=== PATIENT | female | born 1995 | race Hispanic/Latino ===

== ENCOUNTER 2018-05-16 22:59 | Observation (INO) | payer OTHER ==
[2018-05-16] MEDS ORDERED: ONDANSETRON 4 MG/2 ML VIAL ONE (23:41)
[2018-05-16] MEDS ORDERED: FAMOTIDINE 20 MG/2 ML VIAL IV ONE (23:41)
[2018-05-16] MEDS ORDERED: DICYCLOMINE HCL 10 MG CAP ONE (23:41)
[2018-05-16] MEDS ORDERED: NA CHLORIDE 0.9% 1,000 ML ONE (23:41)
[2018-05-17 00:39] LABS: Absolute Lymphocytes (CBC) 1.2 K/uL (0.7-4.9); Absolute Monocytes 0.6 K/uL (0.1-1.3); Basophils % 0.3 % (0-1.3); Eosinophils % 1.3 % (0-4.4); Lymphocytes % 10.9 % (15.3-44.8); MCH 29.2 pg (27.0-35.0); MPV 9.7 fL (7.6-11.3); Monocytes % 5.3 % (3.3-12.3)
[2018-05-17 00:47] LABS: ALT/SGPT 13 U/L (12-78); AST/SGOT 11 U/L (15-37); Albumin 3.4 g/dL (3.4-5.0); Alkaline Phosphatase 77 U/L (45-117); BUN Blood Urea Nitrogen 12 mg/dL (7-18); Bicarbonate 24 mmol/L (21-32); Bilirubin Direct 0.1 mg/dL (0-0.2); Bilirubin Total 0.5 mg/dL (0.2-1.0); Glucose Level 107 mg/dL (74-106); Lipase 87 U/L (73-393); Potassium 3.6 mmol/L (3.5-5.1); Protein, Total 7.6 g/dL (6.4-8.2); Sodium Level 141 mmol/L (136-145)
[2018-05-17 01:10] LABS: Urine Specific Gravity >1.030 (1.005-1.030)
[2018-05-17 01:12] LABS: Urine Blood NEGATIVE (NEG); Urine Glucose NEGATIVE (NEG); Urine Protein TRACE (NEG); Urine Specific Gravity >1.030 (1.005-1.030); Urine pH 5.5 (5.0-7.0)
[2018-05-17] MEDS ORDERED: KETOROLAC 30 MG/ML INJ ONE ×2 (01:49→08:23)
--- NOTE | 2018-05-17 03:14 | EDPHYS ---
Physician Documentation [facility] Name: Sosa Norris Age: 23 yrs Sex: Female : 1995 Arrival Date: 05/16/2018 Time: 23:05 Bed 25 Private MD: ED Physician Cj Tanner HPI: 05/16 23:24 This 23 yrs old Female presents to ER via Unassigned with complaints of cp Abdominal Pain, Back Pain. 23:25 The patient presents with abdominal pain in the lower abdomen. cp 23:25 Onset: The symptoms/episode began/occurred suddenly, today. The symptoms radiate to low cp back area. Associated signs and symptoms: Pertinent positives: nausea, Pertinent negatives: blood in stools, constipation, diarrhea, dysuria, fever, vaginal discharge, vomiting. The symptoms are described as constant. Modifying factors: the symptoms are aggravated by pressure. Severity of pain: in the emergency department the pain is actually worse moderately. 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 - Social history:: Smoking status: unknown. - Ebola Screening: : No symptoms or risks identified at this time. ROS: 23:30 Constitutional: Negative for body aches, chills, fever, poor PO intake. cp 23:30 Eyes: Negative for injury, pain, redness, and discharge. cp 23:30 ENT: Negative for drainage from ear(s), ear pain, sore throat, difficulty swallowing, difficulty handling secretions. 23:30 Cardiovascular: Negative for chest pain, palpitations. 23:30 Respiratory: Negative for cough, shortness of breath, wheezing. 23:30 Abdomen/GI: Positive for abdominal pain, nausea, of the right lower quadrant and left lower quadrant, Negative for vomiting, diarrhea, constipation, black/tarry stool, rectal bleeding. 23:30 Back: Positive for radiated pain, of the low back area. 23:30 : Negative for urinary symptoms, flank pain, vaginal bleeding, vaginal discharge. 23:30 Skin: Negative for cellulitis, rash. 23:30 Neuro: Negative for altered mental status, headache, weakness. 23:30 All other systems are negative. Exam: 23:35 Constitutional: The patient appears in no acute distress, alert, awake, non-toxic, well cp developed, well nourished, uncomfortable. 23:35 Head/Face: Normocephalic, atraumatic. Eyes: Pupils equal round and reactive to light, cp extra-ocular motions intact. Lids and lashes normal. Conjunctiva and sclera are non-icteric and not injected. Cornea within normal limits. Periorbital areas with no swelling, redness, or edema. ENT: Nares patent. No nasal discharge, no septal abnormalities noted. Tympanic membranes are normal and external auditory canals are clear. Oropharynx with no redness, swelling, or masses, exudates, or evidence of obstruction, uvula midline. Mucous membranes moist. Chest/axilla: Normal chest wall appearance and motion. Nontender with no deformity. No lesions are appreciated. 23:35 Cardiovascular: Rate: normal, Rhythm: regular. 23:35 Respiratory: the patient does not display signs of respiratory distress, Respirations: normal, no use of accessory muscles, no retractions, no splinting, no tachypnea, labored breathing, is not present, Breath sounds: are clear throughout, no decreased breath sounds, no stridor, no wheezing. 23:35 Abdomen/GI: Inspection: obese Bowel sounds: active, all quadrants, Palpation: soft, in all quadrants, moderate abdominal tenderness, in the right lower quadrant and left lower quadrant, rebound tenderness, is not appreciated, voluntary guarding, is elicited in the right lower quadrant and left lower quadrant, involuntary guarding, is not appreciated. 23:35 Back: pain, of the low back area, CVA tenderness, is absent. 23:35 Skin: cellulitis, is not appreciated, no rash present. 23:35 Neuro: Orientation: to person, place \T\ time. Mentation: lucid, able to follow commands, Cerebellar function: is grossly normal, Motor: moves all fours, strength is normal, Sensation: no obvious gross deficits. Vital Signs: 23:30 BP 141 / 107; Pulse 81; Resp 18; Temp 98.2(O); Pulse Ox 98% on R/A; tl3 23:56 BP 108 / 93; Pulse 84; Resp 18; Pulse Ox 100% on R/A; tl3 09 01:00 BP 122 / 79; Pulse 58; Resp 18; Pulse Ox 98% on R/A; tl3 02:02 BP 132 / 80; Pulse 60; Resp 18; Pulse Ox 100% on R/A; mg2 03:35 BP 104 / 67; Pulse 68; Resp 16 S; Temp 98.5(O); Pulse Ox 98% on R/A; bb MDM: 05/16 23:09 Patient medically screened. cp 23:11 Patient medically screened. [facility] 05/17 03:00 Data reviewed: vital signs, nurses notes, lab test result(s), radiologic studies, CT cp scan, and as a result, I will admit patient. 03:10 Physician consultation: Jorge Luis Hickman MD was called at 03:10, was contacted at 03:10, regarding admission, to the medical/surgical unit. patient's condition. 05/16 23:25 Order name: Basic Metabolic Panel; Complete Time: 01:52 05/17 01:53 Interpretation: Normal except: GLUC 107; CA 8.1. 05/16 23:25 Order name: CBC with Diff; Complete Time: 01:52 05/17 01:53 Interpretation: Normal except: WBC 11.0; HCT 34.0; MCV 83.0; MCH 29.2; LINH% 82.2; LYM% cp 10.9; NEUT A 9.0. 05/16 23:25 Order name: Hepatic Function; Complete Time: 01:52 cp 05/16 23:25 Order name: Lipase; Complete Time: 01:52 05/16 23:31 Order name: Urine Dipstick--Ancillary (enter results); Complete Time: 01:52 ca 05/16 23:25 Order name: CT Abd/Pelvis - W/Contrast: may give oral contrast 05/16 23:32 Order name: Urine --Ancillary (enter results); Complete Time: 01:52 ms 05/16 23:25 Order name: IV Saline Lock; Complete Time: 23:56 cp 05/16 23:25 Order name: Labs collected and sent; Complete Time: 23:56 cp 05/16 23:25 Order name: Urine Test (obtain specimen); Complete Time: 23:56 cp 05/17 03:04 Order name: NPO; Complete Time: 03:27 cp Administered Medications: 05/16 23:55 Drug: Zofran 4 mg Route: IVP; Infused Over: 2 mins; Site: left antecubital; tl3 05/17 01:05 Follow up: Response: No adverse reaction 3 05/16 23:55 Drug: Pepcid 20 mg Route: IVP; Infused Over: 1 mins; Site: left antecubital; tl3 05/17 01:05 Follow up: Response: No adverse reaction 3 05/16 23:55 Drug: Bentyl 20 mg Route: PO; tl3 05/17 01:05 Follow up: Response: No adverse reaction 3 05/16 23:56 Drug: NS 0.9% 1000 ml Route: IV; Rate: 1 bolus; Site: left antecubital; Delivery: tl3 Primary tubing; 05/17 01:05 Follow up: IV Status: Completed infusion; IV Intake: 1000ml tl3 01:47 Drug: TORadol 30 mg Route: IVP; Site: left forearm; mg2 04:09 Follow up: Response: No adverse reaction bb 03:28 Drug: Zosyn 3.375 grams Route: IVPB; Infused Over: 60 mins; Site: left antecubital; bb 04:09 Follow up: IV Status: Infusion continued upon admission bb Disposition: 07:15 Co-signature as Attending Physician, Cj Tanner MD I agree with the assessment and erin plan of care. Disposition: 05/17/18 03:13 Hospitalization ordered by Jorge Luis Hickman for Observation. Preliminary diagnosis is Unspecified acute appendicitis. - Bed requested for Telemetry/MedSurg (observation). - Status is Observation. ms - Condition is Stable. - Problem is new. - Symptoms have improved. UTI on Admission? No Signatures: Dispatcher [employer] [facility] Hien Gomes, Cj Bella RN, MD MD cha Ballard, Brenda, RN RN bb Solis, Maria ms Page, Corey, PA PA cp Lowrey, Tammy, RN RN tl3 Hitesh Bedolla RN RN mg2 Corrections: (The following items were deleted from the chart) 00:53 05/16 23:26 Creatinine for Radiology+C.LAB.BRZ ordered. [facility] EDMA 05/17 01:53 01:52 Normal except: GLUC 107. cp cp 03:17 03:13 Hospitalization Ordered by Jorge Luis Hickman MD for Observation. Preliminary diagnosis mw is Unspecified acute appendicitis. Bed requested for Telemetry/MedSurg (observation). Status is Observation. Condition is Stable. Problem is new. Symptoms have improved. UTI on Admission? No. cp 05:18 03:17 05/17/2018 03:13 Hospitalization Ordered by Jorge Luis Hickman MD for Observation. ms Preliminary diagnosis is Unspecified acute appendicitis. Bed requested for Telemetry/MedSurg (observation). Status is Observation. Condition is Stable. Problem is new. Symptoms have improved. UTI on Admission? No. mw
--- NOTE | 2018-05-17 03:14 | ER ---
Nurse's Notes [facility] Name: Sosa Norris Age: 23 yrs Sex: Female : 1995 Arrival Date: 05/16/2018 Time: 23:05 Bed 25 Private MD: Diagnosis: Unspecified acute appendicitis Presentation: 05/16 23:26 Presenting complaint: Patient states: abdominal pain that is generalized and has now tl3 worked its way to her lower back, nauseated but no vomiting or diarrhea, Last normal BM this am. Transition of care: patient was not received from another setting of care. Onset of symptoms was May 16, 2018. Risk Assessment: Do you want to hurt yourself or someone else? Patient reports no desire to harm self or others. Initial Sepsis Screen: Does the patient meet any 2 criteria? No. Patient's initial sepsis screen is negative. Does the patient have a suspected source of infection? No. Patient's initial sepsis screen is negative. Care prior to arrival: None. 23:26 Method Of Arrival: Ambulatory tl3 23:26 Acuity: SEGUNDO 3 tl3 Triage Assessment: 23:30 General: Appears uncomfortable, well groomed, well developed, well nourished, Behavior tl3 is calm, cooperative, appropriate for age. Pain: Complains of pain in lumbar area, left low back, right low back and abdomen Pain currently is 8 out of 10 on a pain scale. EENT: No signs and/or symptoms were reported regarding the EENT system. Neuro: Level of Consciousness is awake, alert, obeys commands, Oriented to person, place, time, situation, Appropriate for age. Cardiovascular: Patient's skin is warm and dry. Respiratory: Airway is patent Respiratory effort is even, unlabored, Respiratory pattern is regular, symmetrical. GI: Abdomen is round Bowel sounds present X 4 quads. hypoactive in abdomen diffusely. : No signs and/or symptoms were reported regarding the genitourinary system. Urine is clear. Derm: No signs and/or symptoms reported regarding the dermatologic system. Musculoskeletal: No signs and/or symptoms reported regarding the musculoskeletal system. 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 - Social history:: Smoking status: unknown. - Ebola Screening: : No symptoms or risks identified at this time. Screenin:33 Abuse screen: Denies threats or abuse. Nutritional screening: No deficits noted. tl3 Tuberculosis screening: No symptoms or risk factors identified. Fall Risk None identified. Assessment: 23:33 Reassessment: No changes from previously documented assessment. GI: Abd is soft Abdomen tl3 is tender to palpation. 23:56 Reassessment: No changes from previously documented assessment. Patient and/or family tl3 updated on plan of care and expected duration. Pain level reassessed. Patient is alert, oriented x 3, equal unlabored respirations, skin warm/dry/pink. pt has no needs at this time. 05/17 01:00 Reassessment: Patient appears in no apparent distress at this time. No changes from tl3 previously documented assessment. Patient and/or family updated on plan of care and expected duration. Pain level reassessed. Patient is alert, oriented x 3, equal unlabored respirations, skin warm/dry/pink. awaiting CT. 02:03 Reassessment: Patient appears in no apparent distress at this time. Patient and/or mg2 family updated on plan of care and expected duration. Pain level reassessed. Patient is alert, oriented x 3, equal unlabored respirations, skin warm/dry/pink. patient sent to ct scan. 03:34 Reassessment: Patient and/or family updated on plan of care and expected duration. Pain bb level reassessed. Patient is alert, oriented x 3, equal unlabored respirations, skin warm/dry/pink. pt instructed on need for admit verbalized understanding of and agrees to plan of care. IV site intact, patent with fluids infusing, awaiting room assignment. Vital Signs: 05/16 23:30 BP 141 / 107; Pulse 81; Resp 18; Temp 98.2(O); Pulse Ox 98% on R/A; tl3 23:56 BP 108 / 93; Pulse 84; Resp 18; Pulse Ox 100% on R/A; tl3 05/17 01:00 BP 122 / 79; Pulse 58; Resp 18; Pulse Ox 98% on R/A; tl3 02:02 BP 132 / 80; Pulse 60; Resp 18; Pulse Ox 100% on R/A; mg2 03:35 BP 104 / 67; Pulse 68; Resp 16 S; Temp 98.5(O); Pulse Ox 98% on R/A; bb ED Course: 05/16 23:05 Patient arrived in ED. ag3 23:09 Cj Lemus PA is PHCP. cp 23:09 Cj Tanner MD is Attending Physician. cp 23:16 Briseida Morgan, RN is Primary Nurse. tl3 23:29 Triage completed. tl3 23:30 Arm band placed on right wrist. tl3 23:33 Patient has correct armband on for positive identification. Bed in low position. Call tl3 light in reach. Side rails up X 1. Pulse ox on. NIBP on. 23:33 Urine collected: clean catch specimen, clear. tl3 23:[address] Scan. tl3 23:56 No provider procedures requiring assistance completed. Initial lab(s) drawn, by nj, tl3 sent to lab. Inserted saline lock: 22 gauge in left antecubital area, using aseptic technique. Blood collected. 05/17 02:22 CT Abd/Pelvis - W/Contrast: may give oral contrast In Process Unspecified. EDMS 03:13 Jorge Luis Hickman MD is Hospitalizing Provider. cp 03:28 Patient admitted, IV remains in place. bb Administered Medications: 05/16 23:55 Drug: Zofran 4 mg Route: IVP; Infused Over: 2 mins; Site: left antecubital; tl3 05/17 01:05 Follow up: Response: No adverse reaction tl3 05/16 23:55 Drug: Pepcid 20 mg Route: IVP; Infused Over: 1 mins; Site: left antecubital; tl3 05/17 01:05 Follow up: Response: No adverse reaction tl3 05/16 23:55 Drug: Bentyl 20 mg Route: PO; tl3 05/17 01:05 Follow up: Response: No adverse reaction 3 05/16 23:56 Drug: NS 0.9% 1000 ml Route: IV; Rate: 1 bolus; Site: left antecubital; Delivery: tl3 Primary tubing; 05/17 01:05 Follow up: IV Status: Completed infusion; IV Intake: 1000ml tl3 01:47 Drug: TORadol 30 mg Route: IVP; Site: left forearm; mg2 04:09 Follow up: Response: No adverse reaction bb 03:28 Drug: Zosyn 3.375 grams Route: IVPB; Infused Over: 60 mins; Site: left antecubital; pasquale 04:09 Follow up: IV Status: Infusion continued upon admission bb Intake: 01:05 IV: 1000ml; Total: 1000ml. tl3 Outcome: 03:13 Decision to Hospitalize by Provider. cp 03:28 Admitted to Med/surg bb 03:28 Condition: stable 03:28 Instructed on the need for admit. 04:08 Admitted to Med/surg accompanied by tech, via wheelchair, room 410, with chart, Report bb called to Mirna BRITT 05:18 Patient left the ED. ms Signatures: Dispatcher [employer] EDMS Renuka Stahl RN RN Nguyen Hearn ms, Corey, Briseida Ignacio cp RN RN tl3 Hitesh Bedolla RN RN [facility] Laura Lima ag3
[2018-05-17] MEDS ORDERED: PIPER/TAZO/NS 3.375gm 3.375 GM/100 ML BAG ONE (03:26)
[2018-05-17] MEDS ORDERED: MORPHINE 2 MG/ML SYR IV PRN (05:15)
[2018-05-17] MEDS ORDERED: ONDANSETRON 4 MG/2 ML VIAL IV PRN (05:15)
[2018-05-17] MEDS ORDERED: ACETAMINOPHEN 500 MG TAB PO PRN (05:15)
[2018-05-17 05:17] VITALS: BMI 40.2
[2018-05-17] MEDS: NA CHLORIDE 0.9% 1,000 ML IV SCH ×3 (06:00→20:15)
[2018-05-17] MEDS ORDERED: MORPHINE 4 MG/ML SYR IV PRN (07:44)
[2018-05-17] MEDS ORDERED: FENTANYL CITR 100 MCG/2 ML ONE (07:47)
[2018-05-17] MEDS ORDERED: PROPOFOL 200 MG/20 ML VIAL IV ONE (07:47)
[2018-05-17] MEDS ORDERED: MIDAZOLAM HCL 2 MG/2 ML INJ ONE (07:47)
[2018-05-17] MEDS ORDERED: NEOSTIGMINE 1 MG/ML -5 ML SYRINGE ONE (07:48)
[2018-05-17] MEDS ORDERED: ROCURONIUM 50 MG/5 ML VIAL IV ONE (07:48)
[2018-05-17] MEDS ORDERED: LIDOCAINE 2% MPF 5 ML VIAL ONE (07:48)
[2018-05-17] MEDS ORDERED: GLYCOPYRROLATE 0.2 MG/ML SYR ONE (07:48)
[2018-05-17] MEDS ORDERED: ONDANSETRON HCL 40 MG/20 ML VIAL ONE (07:50)
[2018-05-17] MEDS ORDERED: INFLUENZA VACCINE (for 3y+) 0.5 ML DOSE IMVAC ONE (08:00)
[2018-05-17] MEDS ORDERED: PNEUMOCOCCAL VACCINE 0.5 ML IMVAC ONE (08:00)
[2018-05-17] MEDS ORDERED: DEXAMETHASONE 10 MG/ML VIAL ONE (08:23)
--- NOTE | 2018-05-17 08:46 | P.OP ---
Preoperative diagnosis: Acute Appendicitis Postoperative diagnosis: same Primary procedure: Lap Appy Anesthesia: Gen Estimated blood loss: min Specimen: Appy Findings: as above Complications: None Transferred to: Recovery Room Condition: Good
[2018-05-17] MEDS ORDERED: PIPER/TAZO/NS 3.375gm 3.375 GM/100 ML BAG IVPB SCH ×2 (09:30→12:00)
[2018-05-17] MEDS: MEPERIDINE HCL 50 MG/ML AMP ONE ×2 (09:35→09:45)
[2018-05-17] MEDS: HYDROMORPHONE HCL 1 MG/ML INJ IV PRN ×2 (10:22→18:33)
--- NOTE | 2018-05-17 12:00 | PREOPHP ---
Date of Admission: 05/17/2018 Reason: Abdominal pain. History Of Present Illness: The patient is a 23-year-old female who comes in with diffuse abdominal pain localized to the right lower quadrant associated with nausea and anorexia. No vomiting for appr oximately 18 hours. No diarrhea or constipation. No blood in her stool. No dysuria or hematuria. No sore throat, runny nose, cough, headaches, or dizziness. No chest pain. No fever or chills. Review of Systems: Otherwise unremarkable. Past Medical History: Negative. Past Surgical History: Tonsillectomy. Allergies: NO ALLERGIES. Social History: She does not smoke. Drinks occasionally. Family History: Noncontributory. Physical Examination: Vital Signs: Stable. Afebrile. General: Awake, alert, and oriented x3. Head and Neck: Cranial nerves 2 through 12 grossly within normal limits. No neck masses. No JVD. Throat clear. Neck is supple. Chest: Clear. Heart: S1, S2. Abdomen: Soft, nondistended. Positive bowel sounds. Positive Rovsing sign. Positive right lower q uadrant tenderness with rebound. No rigidity or guarding. Extremity: Adequately perfused. Nontender. Neuro: Nonfocal. Laboratory Data: White count is slightly elevated at 11.1. CT of the abdomen and pelvis reveals wilbert dence of acute uncomplicated appendicitis. Assessment: Acute appendicitis. Plan: Admit, n.p.o., IV fluid, IV antibiotic, to the OR for laparoscopic appendectomy, possible open . The patient and family understand the risks, benefits, and alternatives and agrees to the procedbonnie BILL/EDILBERTO Voice ID: [id number]
--- NOTE | 2018-05-17 12:43 | RAD REPORT ---
EXAM DESCRIPTION: CTAbdomen Pelvis W Contrast - 05/17/2018 7:05 am CLINICAL HISTORY: Abdominal pain. ABD PAIN COMPARISON: No comparisons TECHNIQUE: Biphasic CT imaging of the abdomen and pelvis was performed with 100 ml non-ionic IV cont rast. All CT scans are performed using dose optimization technique as appropriate and may include automated exposure control or mA/KV adjustment according to patient size. FINDINGS: The lung bases are clear. The liver, spleen, pancreas, adrenal glands and kidneys are within normal limits. No bowel obstruction, free air, free fluid or abscess. The appendix is dilated to 13 mm and inflamed compatible with acute appendicitis. No evidence of significant lymphadenopathy. No suspicious bony findings. IUD is in place. IMPRESSION: Acute appendicitis.
[2018-05-17] MEDS: PIPER/TAZO/NS 3.375gm 3.375 GM/100 ML BAG IVPB SCH ×2 (12:52→20:13)
[2018-05-17] MEDS: HYDROCODONE/APAP 7.5/325 MG TAB PO PRN ×2 (12:54→20:13)
--- NOTE | 2018-05-17 19:42 | OP ---
Date of Procedure: 05/17/2018 Surgeon: Jorge Luis Hickman MD Preoperative Diagnosis: Acute appendicitis. Postoperative Diagnosis: Acute appendicitis. Procedure: Laparoscopic appendectomy. Specimen: Appendix. Findings: As above. Anesthesia: General. Complications: None. Disposition: The patient tolerated the procedure in stable condition and taken to recovery in good g eneral condition. Procedure In Detail: The patient was brought to the OR and placed in supine position. General anest hesia was begun. The patient was prepped and draped in usual sterile fashion. Marcaine 0.5% was inf iltrated locally. A 15-blade was used to make a 1 cm supraumbilical midline incision. Subcutaneous tissue divided. The fascia was identified and divided. A #1 Vicryl stay suture was placed. Periton eal cavity was entered with sharp and blunt dissection. A 12-mm trocar was placed into the peritonea l cavity under direct vision. Pneumoperitoneum was established. A 5-mm trocar was placed in the sup rapubic and left lower quadrant region. Laparoscopy revealed inflammation at base of the appendix. Mesoappendix was clearly identified. Endo-GENESIS stapling device was used to divide both structures. M inimal oozing noted from the appendiceal artery, controlled easily with vascular clips. Appendix was retrieved through the umbilicus via an EndoCatch bag. Right lower quadrant was irrigated. Effluent was clear. No evidence of bleeding or bowel injury appreciated. No other evidence of disease ident ified, normal pelvic organs as well as the remainder of the abdominal contents that could be seen. S ubsequently, all trocars were removed under vision. Stay sutures were tied to each other to reapprox imate the fascial defect. Subcutaneous wounds were irrigated. Bleeding controlled with cautery. A 3 -0 chromic was used to approximate the subcutaneous tissue. [place] were used to close the skin. St erile dressing was applied. The patient was awakened and taken to recovery room in good general cond ition. /MODL Voice ID: [id number] Report ID: [id number]
[2018-05-18] MEDS: HYDROMORPHONE HCL 1 MG/ML INJ IV PRN (00:02)
[2018-05-18] MEDS: NA CHLORIDE 0.9% 1,000 ML IV SCH ×2 (03:52→14:00)
[2018-05-18] MEDS: PIPER/TAZO/NS 3.375gm 3.375 GM/100 ML BAG IVPB SCH ×2 (03:52→12:57)
[2018-05-18] MEDS: HYDROCODONE/APAP 7.5/325 MG TAB PO PRN ×3 (03:53→13:03)
[2018-05-18 05:46] LABS: Absolute Lymphocytes (CBC) 0.9 K/uL (0.7-4.9); Absolute Monocytes 0.6 K/uL (0.1-1.3); Absolute Neutrophil 8.2 K/uL (1.8-8.0); Eosinophils % 0.1 % (0-4.4); Hematocrit 31.3 % (36.0-45.0); Lymphocytes % 9.5 % (15.3-44.8); MCH 28.5 pg (27.0-35.0); MCV 84.5 fL (80-100); MPV 9.7 fL (7.6-11.3); Monocytes % 6.5 % (3.3-12.3)
[2018-05-18 05:58] LABS: BUN Blood Urea Nitrogen 7 mg/dL (7-18); Bicarbonate 24 mmol/L (21-32); Glucose Level 111 mg/dL (74-106); Potassium 4.3 mmol/L (3.5-5.1); Sodium Level 140 mmol/L (136-145)
[2018-05-18 12:10] VITALS: BP 119/66; TEMP 97.2
[2018-05-18 14:02] VITALS: O2SAT 100
[2018-05-18] MEDS ORDERED: INFLUENZA VACCINE (for 3y+) 0.5 ML DOSE IMVAC ONE (16:00)
--- NOTE | 2018-05-19 04:07 | DS ---
Date of Discharge: 05/18/2018 Admitting Diagnosis: Acute appendicitis. Discharge Diagnosis: Acute appendicitis. Procedure Performed: Laparoscopic appendectomy. Hospital Course: The patient is a 23-year-old female who underwent the aforementioned procedure. Po stoperatively, she is tolerating diet, ambulating, pain control, on p.o. pain medication, afebrile. Therefore, the patient will be discharged to home. Disposition: Home. Condition: Stable. Discharge Instructions: Resume home medications and diet. Activity as tolerated. No heavy lifting. Remove outer dressing in a.m. Shower. Keep wound clean and dry. Follow up in my office in 1 week . Call for appointment. Tylenol No. 3 one tablet p.o. q.4 p.r.n. pain. /EDILBERTO Voice ID: [id number] Report ID: [id number]
== END 2018-05-18 16:12 | disposition home or self-care (01) ==
LOC: ER 22:59 → ERHOLD 05-17 03:36 → 4TH 05-17 04:06
PROVIDERS: ADMIT Surgery; ATTEND Surgery
PROC: 0DTJ4ZZ Resection of Appendix, Percutaneous Endoscopic Approach (ICD-10-PCS; principal; 2018-05-17 08:00)
DX: K35.80 Unspecified acute appendicitis (principal); Z23 Encounter for immunization
CPT/HCPCS: 36415; 74177; 80048; 80076; 81003; 81025; 83690; 85025; 88304; 96361; 96365; 96375; 99285; G0008; G0378; J1100; J1170; J2175; J2250; J2405; J2543; J2710; J3010; J7030; Q2035; Q9967

== ENCOUNTER 2019-05-15 11:02 | Emergency (ER) | payer OTHER, SELFPAY ==
[2019-05-15] MEDS ORDERED: FLUORESCEIN SODIUM 1 MG/WRAP ONE (11:26)
[2019-05-15] MEDS ORDERED: NA CHLORIDE 0.9% 0 ML ONE (11:26)
[2019-05-15] MEDS ORDERED: TETRACAINE HCL 0.5% 4ML OPTH ONE (11:26)
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
[2019-05-15] MEDS ORDERED: TOBRAMYCIN SULF 0.3% OPTH OINT ONE (12:55)
[2019-05-15 13:15] VITALS: TEMP 98.4
[2019-05-15 13:18] VITALS: BP 145/86; O2SAT 97
== END 2019-05-15 12:59 | disposition home or self-care (01) ==
LOC: ER 11:02
DX: H10.9 Unspecified conjunctivitis (principal); Z77.29 Contact with and (suspected) exposure to other hazardous substances
CPT/HCPCS: 99283; J7030

== ENCOUNTER 2019-09-14 02:01 | Emergency (ER) | payer SELFPAY ==
[2019-09-14] MEDS ORDERED: ALBUTEROL 2.5 MG/3 ML NEB SOL ONE (02:23)
[2019-09-14] MEDS ORDERED: IPRATROPIUM BROM 0.5MG/2.5ML ONE (02:23)
[2019-09-14] MEDS ORDERED: BENZONATATE 100 MG CAP PO ONE (02:23)
--- NOTE | 2019-09-14 02:45 | ER ---
Nurse's Notes [facility] Name: Sosa Norris Age: 24 yrs Sex: Female : 1995 Arrival Date: 09/14/2019 Time: 02:02 Bed 16 Private MD: Diagnosis: Acute bronchitis;Acute pharyngitis Presentation: 09/14 02:08 Presenting complaint: Patient states: sore throat since yesterday with low grade fever. aa1 Transition of care: patient was not received from another setting of care. Onset of symptoms was September 13, 2019. Risk Assessment: Do you want to hurt yourself or someone else? Patient reports no desire to harm self or others. Initial Sepsis Screen: Does the patient meet any 2 criteria? No. Patient's initial sepsis screen is negative. Does the patient have a suspected source of infection? No. Patient's initial sepsis screen is negative. Care prior to arrival: None. 02:08 Method Of Arrival: Ambulatory aa1 02:08 Acuity: SEGUNDO 4 aa1 Triage Assessment: 02:10 General: Appears in no apparent distress. comfortable, Behavior is calm, cooperative, aa1 appropriate for age. 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 - Coronavirus screen:: The patient has NOT traveled to [place], [place], or [place] in the past 14 days. Proceed with normal triage process as indicated. - Social history:: Smoking status: Patient reports the use of cigarette tobacco products, denies chronic smoking, but will smoke occasionally. - Ebola Screening: : Patient denies exposure to infectious person Patient denies travel to an Ebola-affected area in the 21 days before illness onset. Screenin:20 Abuse screen: Denies threats or abuse. Denies injuries from another. Nutritional wh screening: No deficits noted. Tuberculosis screening: No symptoms or risk factors identified. Fall Risk None identified. Assessment: 02:20 General: Appears in no apparent distress. Behavior is calm, cooperative, appropriate wh for age. Pain: Complains of pain in sore throat. Neuro: Level of Consciousness is awake, alert, obeys commands, Oriented to person, place, time, situation, Appropriate for age. Cardiovascular: Heart tones S1 S2. Respiratory: Airway is patent Respiratory effort is even, unlabored, Respiratory pattern is regular, symmetrical, Breath sounds are clear bilaterally. GI: Abdomen is flat, non-distended. : No signs and/or symptoms were reported regarding the genitourinary system. EENT: Throat is pink. Derm: Skin is intact, is healthy with good turgor, Skin is pink, warm \T\ dry. normal. Musculoskeletal: Circulation, motion, and sensation intact. Vital Signs: 02:10 BP 113 / 68; Pulse 86; Resp 16; Temp 97.4; Pulse Ox 99% on R/A; Weight 90.72 kg; Height aa1 5 ft. 0 in. (152.40 cm); Pain 8/10; 03:04 BP 117 / 71; Pulse 79; Resp 18; Pulse Ox 99% on R/A; wh 02:10 Body Mass Index 39.06 (90.72 kg, 152.40 cm) aa1 ED Course: 02:02 Patient arrived in ED. cl3 02:05 Rashard [facility]ro [facility]-C [facility] la1 02:05 Cam Lu MD is Attending Physician. la1 02:09 Triage completed. aa1 02:10 Arm band placed on left wrist. aa1 02:17 Josesito Wells is Primary Nurse. wh 02:20 Patient has correct armband on for positive identification. Bed in low position. Call light in reach. Side rails up X 1. Pulse ox on. NIBP on. 03:04 No provider procedures requiring assistance completed. Patient did not have IV access during this emergency room visit. Administered Medications: 02:23 Drug: AtroVENT Aerosol 0.5 mg Route: Inhalation; 03:05 Follow up: Response: No adverse reaction 02:24 Drug: Tessalon Perle 100 mg Route: PO; wh 03:05 Follow up: Response: No adverse reaction 02:24 Drug: Albuterol 2.5 mg Route: Inhalation; 03:05 Follow up: Response: No adverse reaction 02:53 Drug: Tylenol 1000 mg Route: PO; wh 03:05 Follow up: Response: No adverse reaction 02:54 Drug: Motrin 600 mg Route: PO; 03:05 Follow up: Response: No adverse reaction Outcome: 02:44 Discharge ordered by MD. ruffin 03:01 Discharged to home ambulatory. 03:01 Condition: stable 03:01 Discharge instructions given to patient, Instructed on discharge instructions, follow up and referral plans. medication usage, POC Demonstrated understanding of instructions, follow-up care, medications, POC Prescriptions given X 3. 03:05 Patient left the ED. Signatures: Rayne Royal RN RN aa1 Rashard Oro, SENIOR INTERACTIVE PRODUCER-C SENIOR INTERACTIVE PRODUCER-Cla1 Josesito Wells Sebastián Guaman cl3
--- NOTE | 2019-09-14 02:45 | EDPHYS ---
Physician Documentation [facility] Name: Sosa Norris Age: 24 yrs Sex: Female : 1995 Arrival Date: 09/14/2019 Time: 02:02 Bed 16 Private MD: ED Physician Cam Lu HPI: 09/14 02:13 This 24 yrs old Female presents to ER via Ambulatory with complaints of Sore la1 Throat. 02:13 The patient presents with sore throat. The patient describes throat pain as scratchy. la1 Onset: The symptoms/episode began/occurred today. Severity of symptoms: At their worst the symptoms were mild, in the emergency department the symptoms have improved. Modifying factors: The symptoms are alleviated by nothing, the symptoms are aggravated by swallowing, cough, Patient's oral intake status: good Denies contact with similarly ill indivduals. Associated signs and symptoms: Pertinent positives: cough, Pertinent negatives chest pain, chills, earache, headache, nausea, rhinorrhea, shortness of breath. The patient has not experienced similar symptoms in the past. pt reports cough and sore throat that started today. 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 - Coronavirus screen:: The patient has NOT traveled to [place], [place], or [place] in the past 14 days. Proceed with normal triage process as indicated. - Social history:: Smoking status: Patient reports the use of cigarette tobacco products, denies chronic smoking, but will smoke occasionally. - Ebola Screening: : Patient denies exposure to infectious person Patient denies travel to an Ebola-affected area in the 21 days before illness onset. ROS: 02:13 Constitutional: Negative for fever, chills, and weight loss, Eyes: Negative for injury, la1 pain, redness, and discharge, ENT: + for sore throat Neck: Negative for injury, pain, and swelling, Cardiovascular: Negative for chest pain, palpitations, and edema, Respiratory: + for cough' Abdomen/GI: Negative for abdominal pain, nausea, vomiting, diarrhea, and constipation, Back: Negative for injury and pain, : Negative for injury, bleeding, discharge, and swelling, MS/Extremity: Negative for injury and deformity, Neuro: Negative for headache, weakness, numbness, tingling, and seizure, Endocrine: Negative for neck swelling, polydipsia, polyuria, polyphagia, and marked weight changes. Exam: 02:14 Constitutional: This is a well developed, well nourished patient who is awake, alert, la1 and in no acute distress. Head/Face: Normocephalic, atraumatic. Eyes: Pupils equal round and reactive to light, extra-ocular motions intact. Lids and lashes normal. Conjunctiva and sclera are non-icteric and not injected. Cornea within normal limits. Periorbital areas with no swelling, redness, or edema. ENT: Nares patent. No nasal discharge, no septal abnormalities noted. Tympanic membranes are normal and external auditory canals are clear. Oropharynx with no redness, swelling, or masses, exudates, or evidence of obstruction, uvula midline. Mucous membranes moist. Neck: Trachea midline no cervical lymphadenopathy. Supple, full range of motion without nuchal rigidity, or vertebral point tenderness. No Meningismus. Chest/axilla: Normal chest wall appearance and motion. Nontender with no deformity. No lesions are appreciated. Cardiovascular: Regular rate and rhythm with a normal S1 and S2. No gallops, murmurs, or rubs. Normal PMI, no JVD. No pulse deficits. 02:14 Respiratory: the patient does not display signs of respiratory distress, Respirations: normal, Breath sounds: rhonchi, that are mild, are heard diffusely, Respiratory rate: 16 Vital Signs: 02:10 BP 113 / 68; Pulse 86; Resp 16; Temp 97.4; Pulse Ox 99% on R/A; Weight 90.72 kg; Height aa1 5 ft. 0 in. (152.40 cm); Pain 8/10; 03:04 BP 117 / 71; Pulse 79; Resp 18; Pulse Ox 99% on R/A; wh 02:10 Body Mass Index 39.06 (90.72 kg, 152.40 cm) aa1 MDM: 02:05 Patient medically screened. la1 02:44 Data reviewed: vital signs, nurses notes, lab test result(s), and as a result, I will la1 discharge patient. Data interpreted: Pulse oximetry: on room air is 99 %. Interpretation: normal. Counseling: I had a detailed discussion with the patient and/or guardian regarding: the historical points, exam findings, and any diagnostic results supporting the discharge/admit diagnosis, lab results, to return to the emergency department if symptoms worsen or persist or if there are any questions or concerns that arise at home. Medication response: albuterol nebulizer treatment(s) markedly relieved the patient's wheezing. Special discussion: I discussed with the patient/guardian that the patient's current presentation does not indicate dosing of antibiotics. They should follow-up with their primary care provider and return if the symptoms persist or progress. 09/14 02:10 Order name: Strep la1 09/14 02:10 Order name: Flu la1 09/14 02:46 Order name: Throat Culture EDMS Administered Medications: 02:23 Drug: AtroVENT Aerosol 0.5 mg Route: Inhalation; 03:05 Follow up: Response: No adverse reaction 02:24 Drug: Tessalon Perle 100 mg Route: PO; 03:05 Follow up: Response: No adverse reaction 02:24 Drug: Albuterol 2.5 mg Route: Inhalation; 03:05 Follow up: Response: No adverse reaction 02:53 Drug: Tylenol 1000 mg Route: PO; 03:05 Follow up: Response: No adverse reaction 02:54 Drug: Motrin 600 mg Route: PO; 03:05 Follow up: Response: No adverse reaction Disposition: 06:50 Co-signature as Attending Physician, Cam Lu MD I agree with the assessment and [facility] plan of care. Disposition: 09/14/19 02:44 Discharged to Home. Impression: Acute bronchitis, Acute pharyngitis. - Condition is Stable. - Discharge Instructions: Acute Bronchitis, Adult, Pharyngitis, Cough, Adult. - Prescriptions for Tessalon Perles 100 mg Oral Capsule - take 1 capsule by ORAL route every 8 hours As needed; 15 capsule. Medrol (Aristides) 4 mg Oral Tablets, Dose Pack - take 1 tablet by ORAL route as directed - follow package instructions; 1 packet. Albuterol Sulfate 90 mcg/actuation - inhale 1-2 puff by INHALATION route every 4-6 hours; 1 Inhaler. - Medication Reconciliation Form, Thank You Letter, Antibiotic Education, Prescription Opioid Use form. - Follow up: Private Physician; When: 2 - 3 days; Reason: Recheck today's complaints, Re-evaluation by your physician. Follow up: Emergency Department; When: As needed; Reason: Worsening of condition. - Problem is new. - Symptoms have improved. Signatures: Dispatcher [employer] EDRayne Starr RN RN aa1 Rashard Oro, MARKET RESEARCH CONSULTANT-C MARKET RESEARCH CONSULTANT-Cla1 Josesito Wells Terrence, MD MD tw4 Corrections: (The following items were deleted from the chart) 03:05 02:44 09/14/2019 02:44 Discharged to Home. Impression: Acute bronchitis; Acute wh pharyngitis. Condition is Stable. Discharge Instructions: Acute Bronchitis, Adult, Pharyngitis, Cough, Adult. Prescriptions for Tessalon Perles 100 mg Oral Capsule - take 1 capsule by ORAL route every 8 hours As needed; 15 capsule, Medrol (Aristides) 4 mg Oral Tablets, Dose Pack - take 1 tablet by ORAL route as directed - follow package instructions; 1 packet, Albuterol Sulfate 90 mcg/actuation - inhale 1-2 puff by INHALATION route every 4-6 hours; 1 Inhaler. and Forms are Medication Reconciliation Form, Thank You Letter, Antibiotic Education, Prescription Opioid Use. Follow up: Private Physician; When: 2 - 3 days; Reason: Recheck today's complaints, Re-evaluation by your physician. Follow up: Emergency Department; When: As needed; Reason: Worsening of condition. Problem is new. Symptoms have improved. la1
[2019-09-14] MEDS ORDERED: IBUPROFEN 400 MG TAB ONE (02:57)
[2019-09-14] MEDS ORDERED: ACETAMINOPHEN 500 MG TAB ONE (02:57)
[2019-09-14] MEDS ORDERED: IBUPROFEN 200 MG TAB PO ONE (02:57)
[2019-09-14 03:10] VITALS: TEMP 97.4; O2SAT 99
[2019-09-14 03:11] VITALS: BP 117/71
== END 2019-09-14 03:05 | disposition home or self-care (01) ==
LOC: ER 02:01
DX: J20.9 Acute bronchitis, unspecified (principal)
CPT/HCPCS: 87070; 87081; 87804; 99284

== ENCOUNTER 2020-11-24 05:03 | Emergency (ER) | payer OTHER, MEDICAID ==
--- OUTSIDE RECORDS SUMMARY | 2020-11-24 05:06 | XMS REPORT | Continuity of Care Document ---
:1995 Author Organization [facility] t Address [address] [place] [address] Care Team Providers Name Role Phone Asked, Pcp Primary Care Physician Unavailable Zeferino CASTRO, Yash Attending Clinician 2, Lab Attending Clinician Unavailable Hakan Paredes MD Attending Clinician Payers Payer Name Policy Type Policy Number Effective Date Expiration Date S mimi [facility] [id number] 2017 [place] BENEFIT 00:00:00 [employer] [id number] -Pre sentPPO CIGNACIGNA/ALL [id number] 2020 [place] EGIANCE 00:00:00 [employer] BENEFIT [id number] -Pre sentPPO Problems Condition Condition Condition Status Onset Resolution Last Treating Co mments Source Name Details Category Date Date Treatment Clinician Date Disease Active Timothy ston 5-16 [facility]i 00:00: st 00 Encounter Encounter Disease Active Timothy ston for for 4-26 Method[facility] suspected suspected 00:00: st problem problem 00 with with growth, growth, ruled out ruled out IUGR IUGR Disease Active [place] (intrauter (intrauter 3-23 Me thodi ine growth ine growth 00:00: st restrictio restrictio 00 n) n) affecting affecting care of care of mother mother Poor Poor Disease Active [place] growth growth 3-08 Methodi affecting affecting 00:00: st management management 00 of mother of mother Encounter Encounter Disease Active Timothy ston for for 2-15 Methodi 00:00: st screening screening 00 of mother of mother Maternal Maternal Disease Active [place] care for care for 1-04 Method i other other 00:00: st (suspected (suspected 00 ) ) abnormalit abnormalit y and y and damage, damage, not not applicable applicable or or unspecifie unspecifie d d Obesity Obesity Disease Active [place] affecting affecting 1-04 Meth dorothea , , 00:00: st antepartum antepartum 00 Allergies, Adverse Reactions, Alerts This patient has no known allergies or adverse reactions. Social History Social Habit Start Date Stop Date Quantity Comments Source History of Cigarette Smoker [facility] tobacco use Tobacco use and 2019-03-29 2019-03-[address] [facility] ethodist exposure 00:00:00 00:00:00 Alcohol intake 2019-03-29 2019-03-29 Current drinker [place] [facility] 00:00:00 00:00:00 of alcohol (finding) Sex Assigned At [address] 1995 [facility] ethodist 00:00:00 00:00:00 Smoking Status Start Date Stop Date Source Former smoker 2019-03-29 00:00:00 2019-03-29 00:00:00 [place] [facility] Medications Ordered Filled Start Stop Current Ordering Indication Dosage Frequency Signature Comments Components Source Medication Medication Date Date Medication? Clinician (SIG) Name Name naproxen 2018-08 Yes TAKE 1 Espinoza (NAPROSYN) 0-21 TABLET BY Meth dorothea 500 MG 00:00: MOUTH st tablet 00 TWICE A DAY WITH MEALS SPRINTEC, Yes 1{tbl} QD Take 1 [place], 0.25-35 7-25 tablet by Met h[facility] mg-mcg per 00:00: mouth once s t tablet 00 daily. Immunizations Ordered Immunization Filled Immunization Date Status Commen ts Source Name Name Tdap 2016-11-06 [facility] 00:00:00 [facility] Procedures Procedure Date / Time Performed Performing Clinician Sourc e COVID-19 QUALITATIVE PCR 2020-07-12 14:45:00 Carrie Jose Will deloresnoel Espinoza [facility] Plan of Care Planned Activity Planned Date Details Comments Source Future Scheduled 2021-03-18 INFLUENZA VACCINE Coty rodriguez [facility] Test 00:00:00 [code = INFLUENZA VACCINE] Future Scheduled 2016-02-14 Screening for Alexis [facility] Test 00:00:00 malignant neoplasm of cervix (procedure) [code = 709932928] Future Scheduled 2013 Hepatitis C Alexis [facility] Test 00:00:00 screening (procedure) [code = 649497039] Future Scheduled 2011 COVID-19 VACCINE (1) Timothy pearson [facility] Test 00:00:00 [code = COVID-19 VACCINE (1)] Encounters Start End Encounter Admission Attending Care Care Encounter Source Date/Time Date/Time Type Type Clinicians Facility Department ID 2020-11-22 2020-11-22 Telephone McgarryPadmaen [facility] [id number] 00:00:00 00:00:00 [place] [id number] [place] [id number] Professio [id number] nal 134 [facility] 2020-11-20 2020-11-20 Nurse Recruiter 2, Adc Lab [facility] [id number] 13:49:04 14:04:04 Visit [place] [id number] [place] [id number] Professio [id number] nal 353 [facility] 2020-07-12 2020-07-12 Outpatient CARRIE [facility] [id number] [place] 00:00:00 00:00:00 JOSE [address] Results Test Description Test Time Test Comments Results Result Comments Source COVID-19 qualitative PCR 2020-07-12 22:47:50 Test Item Value Reference Range Interpretation Comme nts Interpretation (test code = Negative results do not [id number]) preclude 2019-nCoV infection and should not be used as the sole basis for treatment or other patient management decisions. Negative results must be combined with clinical observations, patient history, and epidemiological information. COVID-19 qualitative PCR Not-Detected Not-Detected result (test code = 36351-4) COVID-19 qualitative PCR See link below for PDF Lab Case Number: (test code = 7070) Report [id number] 115 [facility]
[2020-11-24 05:48] LABS: Absolute Lymphocytes (CBC) 1.5 K/uL (0.7-4.9); Basophils % 0.4 % (0-1.3); Hematocrit 36.8 % (36.0-45.0); Lymphocytes % 15.7 % (15.3-44.8); MPV 9.3 fL (7.6-11.3); RBC Red Blood Cell Count 4.35 M/uL (3.86-4.86)
[2020-11-24] MEDS ORDERED: METOCLOPRAMIDE 10 MG/2mL INJ ONE (05:52)
[2020-11-24] MEDS ORDERED: PROMETHAZINE INJ 25 MG/ML AMP ONE (05:53)
[2020-11-24] MEDS ORDERED: NA CHLORIDE 0.9% 1,000 ML ONE (05:53)
[2020-11-24 06:32] LABS: ALT/SGPT 21 U/L (12-78); AST/SGOT 8 U/L (15-37); Albumin 3.5 g/dL (3.4-5.0); Alkaline Phosphatase 71 U/L (45-117); BUN Blood Urea Nitrogen 11 mg/dL (7-18); Bicarbonate 23 mmol/L (21-32); Bilirubin Direct 0.1 mg/dL (0-0.2); Bilirubin Total 0.5 mg/dL (0.2-1.0); Glucose Level 105 mg/dL (74-106); HCG, Quantitative 16587 mIU/mL (1-3); Lipase 89 U/L (73-393); Potassium 3.8 mmol/L (3.5-5.1); Sodium Level 138 mmol/L (136-145)
--- NOTE | 2020-11-24 07:05 | ER ---
Nurse's Notes [facility] Name: Sosa Norris Age: 25 yrs Sex: Female : 1995 Arrival Date: 11/24/2020 Time: 05:08 Bed 5 Private MD: Diagnosis: Nausea and vomiting-hyperemesis gravidarum Presentation: 11/24 05:19 Chief complaint: Patient states: , reports being , unknown far along she em is, last LMP mid sep., OB prescribed promethazine but it is not working, denies belly pain or vaginal bleeding. Coronavirus screen: Client denies travel out of the [place] in the last 14 days. Ebola Screen: Patient negative for fever greater than or equal to 101.5 degrees Fahrenheit, and additional compatible Ebola Virus Disease symptoms Patient denies exposure to infectious person. Patient denies travel to an Ebola-affected area in the 21 days before illness onset. No symptoms or risks identified at this time. Initial Sepsis Screen: Does the patient meet any 2 criteria? No. Patient's initial sepsis screen is negative. Does the patient have a suspected source of infection? No. Patient's initial sepsis screen is negative. Risk Assessment: Do you want to hurt yourself or someone else? Patient reports no desire to harm self or others. Onset of symptoms was November 24, 2020. 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 - Social history:: Smoking status: Patient denies any tobacco usage or history of. Patient/guardian denies using alcohol, street drugs, The patient lives with family. - Family history:: not pertinent. - Hospitalizations: : No recent hospitalization is reported. Screenin:30 Abuse screen: Denies threats or abuse. Denies injuries from another. Nutritional rr5 screening: No deficits noted. Tuberculosis screening: No symptoms or risk factors identified. Fall Risk IV access (20 points). Total Magdaleno Fall Scale indicates No Risk (0-24 pts). Assessment: 05:29 General: Appears in no apparent distress. uncomfortable, Behavior is calm, cooperative, rr5 appropriate for age. Pain: Complains of pain in abdomen Pain currently is 0 out of 10 on a pain scale. Quality of pain is described as aching, Pain began gradually. Neuro: Cardiovascular: Capillary refill < 3 seconds Patient's skin is warm and dry. Respiratory: Airway is patent Respiratory effort is even, unlabored, Respiratory pattern is regular, symmetrical. GI: Abdomen is round obese, Reports lower abdominal pain, upper abdominal pain, nausea, vomiting. : Reports . EENT: No signs and/or symptoms were reported regarding the EENT system. Derm: Skin temperature is warm. Musculoskeletal: Capillary refill < 3 seconds. 06:36 Reassessment: Patient appears in no apparent distress at this time. Patient is alert, rr5 oriented x 3, equal unlabored respirations, skin warm/dry/pink. Patient states symptoms have improved. 08:21 Reassessment: Patient appears in no apparent distress at this time. Patient and/or sv family updated on plan of care and expected duration. Pain level reassessed. Patient is alert, oriented x 3, equal unlabored respirations, skin warm/dry/pink. Patient states feeling better. Patient states symptoms have improved. Vital Signs: 05:19 BP 124 / 86; Pulse 85; Resp 18; Temp 98.1(O); Pulse Ox 99% on R/A; Weight 104.33 kg; em Height 5 ft. 0 in. (152.40 cm); Pain 0/10; 06:36 BP 91 / 51; Pulse 80; Resp 16; Pulse Ox 99% ; rr5 07:15 BP 95 / 51; Pulse 60; Resp 16; Pulse Ox 98% ; sv 08:00 BP 103 / 56; Pulse 62; Resp 16; Pulse Ox 97% ; sv 05:19 Body Mass Index 44.92 (104.33 kg, 152.40 cm) em ED Course: 05:08 Patient arrived in ED. bp1 05:16 Jaguar Singleton RN is Primary Nurse. rr5 05:22 Triage completed. em 05:22 Arm band placed on. em 05:28 Coni Bhakta MD is Attending Physician. ma2 05:30 Patient has correct armband on for positive identification. Placed in gown. Bed in low rr5 position. Call light in reach. Warm blanket given. 05:31 Inserted saline lock: 20 gauge in right forearm, using aseptic technique. Blood rr5 collected. 06:36 No provider procedures requiring assistance completed. rr5 07:52 Basic Metabolic Panel Sent. sv 07:52 CBC with Diff Sent. sv 07:52 Hepatic Function Sent. sv 08:21 IV discontinued, intact, bleeding controlled, No redness/swelling at site. Pressure sv dressing applied. Administered Medications: 05:31 CANCELLED (Duplicate Order): Benadryl (diphenhydrAMINE) 25 mg IVP once ma2 05:40 Drug: NS 0.9% 1000 ml Route: IV; Rate: 1 bolus; Site: right forearm; rr5 06:57 Follow up: Response: No adverse reaction; IV Status: Completed infusion; IV Intake: rr5 1000ml 05:40 Drug: Promethazine 25 mg Route: IVP; Site: right forearm; rr5 06:57 Follow up: Response: No adverse reaction; Marked relief of symptoms rr5 05:43 Drug: metoCLOPramide 10 mg Route: IVP; Site: right forearm; ea 06:57 Follow up: Response: No adverse reaction; Marked relief of symptoms rr5 Intake: 06:57 IV: 1000ml; Total: 1000ml. rr5 Outcome: 07:04 Discharge ordered by . ma2 08:21 Discharged to home ambulatory. sv 08:21 Condition: stable 08:21 Condition: improved 08:21 Discharge instructions given to patient, Instructed on discharge instructions, follow up and referral plans. medication usage, Demonstrated understanding of instructions, follow-up care, medications, Prescriptions given X 1. 08:22 Patient left the ED. sv Signatures: Elisha Roe RN [place], RN Claudia Mackenzie RN RN ea Alzahri, Mohammad, MD MD ma2 Roque, Raymond, RN RN rr5 Dina De La Torre
--- NOTE | 2020-11-24 07:05 | EDPHYS ---
Physician Documentation [facility] Name: Sosa Norris Age: 25 yrs Sex: Female : 1995 Arrival Date: 11/24/2020 Time: 05:08 Bed 5 Private MD: ED Physician Coni Bhakta HPI: 11/24 05:45 This 25 yrs old Female presents to ER via Ambulatory with complaints of ma2 Nausea/Vomiting. 05:45 The patient presents to the emergency department with nausea, vomiting. Onset: The ma2 symptoms/episode began/occurred gradually, 1 day(s) ago. Associated signs and symptoms: Pertinent negatives: belching, dysuria, flatulence, hematuria. Severity of symptoms: At their worst the symptoms were mild in the emergency department the symptoms are unchanged. The patient has experienced similar episodes in the past. 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 - Social history:: Smoking status: Patient denies any tobacco usage or history of. Patient/guardian denies using alcohol, street drugs, The patient lives with family. - Family history:: not pertinent. - Hospitalizations: : No recent hospitalization is reported. ROS: 05:45 Constitutional: Negative for fever, chills, and weight loss. ma2 05:45 All other systems are negative. Exam: 05:45 Constitutional: This is a well developed, well nourished patient who is awake, alert, ma2 and in no acute distress. Chest/axilla: Normal chest wall appearance and motion. Nontender with no deformity. No lesions are appreciated. Cardiovascular: Regular rate and rhythm with a normal S1 and S2. No gallops, murmurs, or rubs. Normal PMI, no JVD. No pulse deficits. Respiratory: Lungs have equal breath sounds bilaterally, clear to auscultation and percussion. No rales, rhonchi or wheezes noted. No increased work of breathing, no retractions or nasal flaring. Abdomen/GI: Soft, non-tender, with normal bowel sounds. No distension or tympany. No guarding or rebound. No evidence of tenderness throughout. Back: No spinal tenderness. No costovertebral tenderness. Full range of motion. Skin: Warm, dry with normal turgor. Normal color with no rashes, no lesions, and no evidence of cellulitis. MS/ Extremity: Pulses equal, no cyanosis. Neurovascular intact. Full, normal range of motion. Neuro: Awake and alert, GCS 15, oriented to person, place, time, and situation. Cranial nerves II-XII grossly intact. Motor strength 5/5 in all extremities. Sensory grossly intact. Cerebellar exam normal. Normal gait. Vital Signs: 05:19 BP 124 / 86; Pulse 85; Resp 18; Temp 98.1(O); Pulse Ox 99% on R/A; Weight 104.33 kg; em Height 5 ft. 0 in. (152.40 cm); Pain 0/10; 06:36 BP 91 / 51; Pulse 80; Resp 16; Pulse Ox 99% ; rr5 07:15 BP 95 / 51; Pulse 60; Resp 16; Pulse Ox 98% ; sv 08:00 BP 103 / 56; Pulse 62; Resp 16; Pulse Ox 97% ; sv 05:19 Body Mass Index 44.92 (104.33 kg, 152.40 cm) em MDM: 05:28 Patient medically screened. ma2 05:45 Differential diagnosis: Nonspecific abd pain, gastritis, viral gastroenteritis, ma2 gastroenteritis. Data reviewed: vital signs, nurses notes. Counseling: I had a detailed discussion with the patient and/or guardian regarding: the historical points, exam findings, and any diagnostic results supporting the discharge/admit diagnosis, the presence of at least one elevated blood pressure reading (>120/80) during this emergency department visit. 11/24 05:29 Order name: Basic Metabolic Panel [facility] 11/24 05:29 Order name: CBC with Diff 11/24 05:29 Order name: Hepatic Function [facility] 11/24 05:29 Order name: Lipase; Complete Time: 07:06 [facility] 11/24 05:29 Order name: Quantitative Hcg; Complete Time: 07:06 [facility] 11/24 05:29 Order name: Basic Metabolic Panel; Complete Time: 07:06 EDMS 11/24 05:29 Order name: IV Saline Lock; Complete Time: 05:33 [facility] 04/09 05:29 Order name: Labs collected and sent; Complete Time: 05:33 ma2 11/24 05:29 Order name: CBC with Automated Diff; Complete Time: 07:06 EDMS 11/24 05:29 Order name: Liver (Hepatic) Function; Complete Time: 07:06 EDMS Administered Medications: 05:31 CANCELLED (Duplicate Order): Benadryl (diphenhydrAMINE) 25 mg IVP once ma2 05:40 Drug: NS 0.9% 1000 ml Route: IV; Rate: 1 bolus; Site: right forearm; rr5 06:57 Follow up: Response: No adverse reaction; IV Status: Completed infusion; IV Intake: rr5 1000ml 05:40 Drug: Promethazine 25 mg Route: IVP; Site: right forearm; rr5 06:57 Follow up: Response: No adverse reaction; Marked relief of symptoms rr5 05:43 Drug: metoCLOPramide 10 mg Route: IVP; Site: right forearm; ea 06:57 Follow up: Response: No adverse reaction; Marked relief of symptoms rr5 Disposition: 11/24/20 07:04 Discharged to Home. Impression: Nausea and vomiting - hyperemesis gravidarum. - Condition is Stable. - Discharge Instructions: Hyperemesis Gravidarum. - Prescriptions for metoclopramide HCl 5 mg Oral tablet,disintegrating - take 2 tablet by ORAL route 4 times per day; 60 tablet. - Medication Reconciliation Form, Thank You Letter, Antibiotic Education, Prescription Opioid Use form. - Follow up: Private Physician; When: Tomorrow; Reason: Continuance of care. Signatures: Dispatcher [employer] Elisha Ye RN RN sv Munoz, Edgar, RN RN em Antunez, Elena, RN RN ea Alzahri, Mohammad, MD MD ma2 Jaguar Singleton RN RN rr5 Corrections: (The following items were deleted from the chart) 05:31 05:29 Benadryl (diphenhydrAMINE) 25 mg IVP once ordered. ma2 ma2 08:22 07:04 11/24/2020 07:04 Discharged to Home. Impression: Nausea and vomiting - sv hyperemesis gravidarum. Condition is Stable. Prescriptions for metoclopramide HCl 5 mg Oral tablet,disintegrating - take 2 tablet by ORAL route 4 times per day; 60 tablet. and Forms are Medication Reconciliation Form, Thank You Letter, Antibiotic Education, Prescription Opioid Use. Follow up: Private Physician; When: Tomorrow; Reason: Continuance of care. ma2
== END 2020-11-24 08:22 | disposition home or self-care (01) ==
LOC: ER 05:03
DX: O21.0 Mild hyperemesis gravidarum (principal); Z3A.00 Weeks of gestation of pregnancy not specified
CPT/HCPCS: 36415; 80048; 80076; 83690; 84702; 85025; 96361; 96374; 96375; 99284; J2550; J2765; J7030

== ENCOUNTER 2021-01-22 07:09 | Emergency (ER) | payer OTHER, MEDICAID ==
--- OUTSIDE RECORDS SUMMARY | 2021-01-22 07:12 | XMS REPORT | Continuity of Care Document ---
:1995 Author Organization [facility] t Address [address]. [address] [place] [address] Care Team Providers Name Role Phone Asked, Pcp Primary Care Physician Unavailable Zeferino CASTRO, Yash Attending Clinician Ashley Vargas MD Attending Clinician 2, Lab Attending Clinician Unavailable Mayur Butler MD Attending Clinician MD MAYUR BUTLER Attending Clinician Unavailable MD MAYUR BUTLER Admitting Clinician Unavailable Payers Payer Name Policy Type Policy Number Effective Date Expiration Date S mimi [facility] [id number] 2017 [place] BENEFIT 00:00:00 Taoist [id number] -Pre sentPPO CIGNACIGNA/ALL [id number] 2020 [place] EGIANCE 00:00:00 [facility]ist BENEFIT [id number] -Pre sentPPO Problems Condition Condition Condition Status Onset Resolution Last Treating Co mments Source Name Details Category Date Date Treatment Clinician Date Disease Active Timothy ston 5-16 Methodi 00:00: st 00 Encounter Encounter Disease Active Timothy ston for for 4-26 Methodi suspected suspected 00:00: st problem problem 00 with with growth, growth, ruled out ruled out IUGR IUGR Disease Active Espinoza (intrauter (intrauter 3-23 Me thodi ine growth [...] mother of mother Maternal Maternal Disease Active Tot on care for care for 1-04 Method i other other 00:00: st (suspected (suspected 00 ) ) abnormalit abnormalit y and y and damage, damage, not not applicable applicable or or unspecifie unspecifie d d Obesity Obesity Disease Active [place] affecting affecting 08-21 Meth dorothea , , 00:00: st antepartum antepartum 00 Allergies, Adverse Reactions, Alerts This patient has no known allergies or adverse reactions. Social History Social Habit Start Date Stop Date Quantity Comments Source History of Cigarette Smoker [facility] tobacco use Tobacco use and 2019-03-29 2019-03-29 Never used [facility] ethodist exposure 00:00:00 00:00:00 Alcohol intake 2019-03-29 2019-03-29 Current drinker Jose Alberto on Taoist 00:00:00 00:00:00 of alcohol (finding) Sex Ass[birth year] [facility] ethodist 00:00:00 00:00:00 Smoking Status Start Date Stop Date Source Former smoker 2019-03-29 00:00:00 2019-03-29 00:00:00 [facility] Medications Ordered Filled Start Stop Current Ordering Indication Dosage Frequency Signature Comments Components Source Medication Medication Date Date Medication? Clinician (SIG) Name Name naproxen 2018-08 Yes TAKE 1 [place] (NAPROSYN) 0-21 TABLET BY Meth dorothea 500 MG 00:00: MOUTH st tablet 00 TWICE A DAY WITH MEALS ABE, Yes 1{tbl} QD Take 1 [place] 28, 0.25-35 7-25 tablet by Met hodi mg-mcg per 00:00: mouth once s t tablet 00 daily. Immunizations Ordered Immunization Filled Immunization Date Status Commen Source Name Name PFIZER COVID-19 MRNA 2021-01-17 Completed [place] VACCINATION 00:00:00 [facility] PFIZER COVID-19 MRNA 2020-12-27 Completed [place] VACCINATION 00:00:00 Taoist Tdap 2016-11-06 Completed [place] 00:00:00 Taoist Procedures Procedure Date / Time Performed Performing Clinician Kerline juarez COVID-19 QUALITATIVE PCR 2020-07-12 14:45:00 Jose Butler [place] Taoist Plan of Care Planned Activity Planned Date Details Comments Source Future Scheduled 2021-03-18 INFLUENZA VACCINE [place] [facility] Test 00:00:00 [code = INFLUENZA VACCINE] Future Scheduled 2016-02-14 Screening for [place] Me thodist Test 00:00:00 malignant neoplasm of cervix (procedure) [code = 470358587] Future Scheduled 2013 Hepatitis C [place] Met hodist Test 00:00:00 screening (procedure) [code = 148654641] Encounters Start End Encounter Admission Attending Care Care Encounter Source Date/Time Date/Time Type Type Clinicians Facility Department ID 2021-01-19 2021-01-19 Case Angelina Mcgarry [facility] [id number] 00:00:00 00:00:00 Management Cam Christa [id number] [place] [id number] Professio [phone] nal [address] [facility] 2021-01-19 2021-01-19 Telephone Angelina Mcgarry [facility] [id number] 00:00:00 00:00:00 [place] [id number] [place] [id number] Professio [phone] nal [facility] 2021-01-17 2021-01-17 Youth Corrections Officer 2, Adc Lab [facility] [id number] 13:15:45 13:30:45 Visit [place] [id number] [place] [id number] Professio [phone] nal [address] [place] [address] 2021-01-17 2021-01-17 Outpatient [facility] [id number] [place] 00:00:00 00:00:00 JAR[address] [facility] 2021-01-17 2021-01-17 Case Angelina Mcgarry [facility] [id number] 00:00:00 00:00:00 Management [place] [id number] [place] [id number] Professio [phone] [address] 2021-01-08 2021-01-08 Youth Corrections Officer 2, Adc Lab [facility] [id number] 08:34:07 08:49:07 Visit [place] [id number] [place] [id number] Professio [phone] 2021-01-01 2021-01-01 Youth Corrections Officer 2, Adc Lab [facility] [id number] 08:47:10 09:02:10 Visit [place] [id number] [place] [id number] Professio [phone] [address] 2021-01-01 2021-01-01 Case Angelina Mcgarry [facility] [id number] 00:00:00 00:00:00 Management Cam [place] [id number] [place] [id number] Professio [phone] [address] 2021-01-01 2021-01-01 Case Angelina Mcgarry [facility] [id number] 00:00:00 00:00:00 Management Cam [place] [id number] [place] [id number] Professio [phone] [address] 2020-12-27 2020-12-27 Youth Corrections Officer 2, Adc Lab [facility] [id number] 10:33:06 10:48:06 Visit [place] [id number] [place] [id number] Professio [phone] 2020-12-27 2020-12-27 Office Angelina Mcgarry [facility] [id number] 09:56:00 10:24:34 Visit Cam [place] [id number] [place] [id number] Professio [phone] [facility] 2020-12-27 2020-12-27 Outpatient [facility] [id number] 349 [place] 00:00:00 00:00:[address] 2020-07-12 2020-07-12 Outpatient CARRIE [facility] [id number] [place] 00:00:00 00:00:00 JOSE [address] Results Test Description Test Time Test Comments Results Result Comments Source COVID-19 qualitative PCR 2020-07-12 22:47:50 Test Item Value Reference Range Interpretation Comme nts Interpretation (test code = Negative results do not [id number]) preclude 2019-nCoV infection and should not be used as the sole basis for treatment or other patient management decisions. Negative results must be combined with clinical observations, patient history, and epidemiological information. COVID-19 qualitative PCR Not-Detected Not-Detected result (test code = 38929-5) COVID-19 qualitative PCR See link below for PDF Lab Case Number: (test code = 7070) Report [id number] 115 [place] [id number] (COVID-19) RNA [Presence] in Respiratory specimen by ANGELA with probe [id number] 22:47:32 Test Item Value Reference Range Interpretation Comments SARS-CoV-2 (COVID-19) RNA Not detected Not-Detected [Presence] in Respiratory specimen by ANGELA with probe detection (test code = 80800-4)
[2021-01-22 08:35] LABS: SARS-COV-2 RT PCR NEGATIVE (NEGATIVE)
--- NOTE | 2021-01-22 08:42 | RAD REPORT ---
EXAM DESCRIPTION: Sean Single View01/22/2021 7:37 am CLINICAL HISTORY: Cough COMPARISON: none FINDINGS: The lungs appear clear of acute infiltrate. The heart is normal size IMPRESSION: No acute abnormalities displayed
--- NOTE | 2021-01-22 08:45 | ER ---
Nurse's Notes [facility] Name: Sosa Norris Age: 25 yrs Sex: Female : 1995 Arrival Date: 01/22/2021 Time: 07:14 Bed 20 Private MD: Diagnosis: Acute upper respiratory infection, unspecified;Viral Syndrome Presentation: 01/22 07:23 Chief complaint: Patient states: Cough, sore throat, loss of smell, stuffy nose since ll1 night. No fever. Coronavirus screen: Client denies travel out of the [place] in the last 14 days. congestion, cough unrelated to allergies, difficulty breathing, headache, shortness of breath, sore throat, loss of taste or smell, Client presents with at least one sign or symptom that may indicate coronavirus-19. Standard/surgical mask placed on the client. Ebola Screen: Patient denies travel to an Ebola-affected area in the 21 days before illness onset. Initial Sepsis Screen: Does the patient meet any 2 criteria? No. Patient's initial sepsis screen is negative. Does the patient have a suspected source of infection? Yes: Productive cough/pneumonia. Risk Assessment: Do you want to hurt yourself or someone else? Patient reports no desire to harm self or others. Onset of symptoms was January 18, 2021. 07:23 Method Of Arrival: Ambulatory ll1 07:23 Acuity: SEGUNDO 4 ll1 Triage Assessment: 07:24 General: Appears in no apparent distress. Behavior is calm, cooperative, appropriate ll1 for age. Pain: Complains of pain in head Quality of pain is described as aching, Aggravated by eating, drinking. EENT: Throat is reddened Reports nasal congestion nasal discharge pain when swallowing. Neuro: Level of Consciousness is awake, alert, obeys commands, Oriented to person, place, time, situation, Appropriate for age It Help Desk Analyst are equal bilaterally Moves all extremities. Full function Gait is steady, Speech is normal, Facial symmetry appears normal, Reports headache. Cardiovascular: No deficits noted. Respiratory: Reports cough that is labored breathing Airway is patent Trachea midline Respiratory effort is even, unlabored, Respiratory pattern is regular, symmetrical, Breath sounds are clear bilaterally. Onset: The symptoms/episode began/occurred night. GI: Abdomen is round Bowel sounds present X 4 quads. Abd is soft and non tender X 4 quads. Reports diarrhea. 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 - Social history:: Smoking status: Patient reports the use of cigarette tobacco products, smokes one-half pack cigarettes per day. - Family history:: not pertinent. - Hospitalizations: : No recent hospitalization is reported. Screenin:42 Abuse screen: Denies threats or abuse. Nutritional screening: No deficits noted. ll1 Tuberculosis screening: No symptoms or risk factors identified. Fall Risk Total Magdaleno Fall Scale indicates No Risk (0-24 pts). Assessment: 08:20 Reassessment: No changes from previously documented assessment. Patient and/or family ll1 updated on plan of care and expected duration. Pain level reassessed. Vital Signs: 07:23 BP 144 / 75; Pulse 95; Resp 17; Temp 98.4; Pulse Ox 99% ; Weight 104.33 kg; Height 5 ll1 ft. 1 in. (154.94 cm); Pain 6/10; 08:51 BP 114 / 93; Pulse 88; Resp 17; Pulse Ox 99% ; ll1 07:23 Body Mass Index 43.46 (104.33 kg, 154.94 cm) ll1 ED Course: 07:14 Patient arrived in ED. as 07:15 Braxton Pimentel MD is Attending Physician. rn 07:22 Malachi Guaman, BALWINDER is Primary Nurse. ll1 07:22 Arm band placed on Patient placed in an exam room, on a stretcher. ll1 07:25 Triage completed. ll1 07:36 XRAY Chest (1 view) In Process Unspecified. EDMS 07:36 X-ray completed. Portable x-ray completed in exam room. Patient tolerated procedure hb2 well. Note: pt abdomen shielded during x ray exam. 07:42 Patient has correct armband on for positive identification. Placed in gown. Bed in low ll1 position. Call light in reach. Side rails up X 1. Cardiac monitoring not applicable on this patient. 08:39 Throat Culture Sent. 08:52 No provider procedures requiring assistance completed. Patient did not have IV access ll1 during this emergency room visit. Administered Medications: No medications were administered Outcome: 08:45 Discharge ordered by . rn 08:52 Discharged to home ambulatory. ll1 08:52 Condition: stable 08:52 Discharge instructions given to patient, Instructed on discharge instructions, follow up and referral plans. Demonstrated understanding of instructions, follow-up care. 08:52 Patient left the ED. 1 Signatures: Dispatcher [employer] EDElisha Corral, RN Adilene Barba Roman, MD MD rn Bias, Harlan hb2 Lewis, Lynsay, RN RN 1
--- NOTE | 2021-01-22 08:45 | EDPHYS ---
Physician Documentation [facility] Name: Sosa Norris Age: 25 yrs Sex: Female : 1995 Arrival Date: 01/22/2021 Time: 07:14 Bed 20 Private MD: ED Physician Braxton Pimentel HPI: 01/22 07:20 This 25 yrs old Female presents to ER via Unassigned with complaints of Cough, rn Sore Throat. 07:20 The patient or guardian reports cough, described as mild, with no sputum. Onset: The rn symptoms/episode began/occurred 4 day(s) ago. Severity of symptoms: At their worst the symptoms were mild, in the emergency department the symptoms are unchanged. Modifying factors: The symptoms are alleviated by nothing, the symptoms are aggravated by nothing. Associated signs and symptoms: Pertinent positives: diarrhea, sore throat, Pertinent negatives: fever. The patient has not experienced similar symptoms in the past. The patient has not recently seen a physician. Reports a few days of cough, sore throat, fatigue, diarrhea, and now lost sense of smell. Just had 2nd COVID shot last week. 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 - Social history:: Smoking status: Patient reports the use of cigarette tobacco products, smokes one-half pack cigarettes per day. - Family history:: not pertinent. - Hospitalizations: : No recent hospitalization is reported. ROS: 07:20 Constitutional: Negative for fever, chills, and weight loss, Eyes: Negative for injury, rn pain, redness, and discharge, Neck: Negative for injury, pain, and swelling, Cardiovascular: Negative for chest pain, palpitations, and edema, Respiratory: + cough Abdomen/GI: Negative for abdominal pain, nausea, vomiting, and constipation, Back: Negative for injury and pain, : Negative for injury, bleeding, discharge, and swelling, MS/Extremity: Negative for injury and deformity, Skin: Negative for injury, rash, and discoloration, Neuro: Negative for headache, numbness, tingling, and seizure. Exam: 07:20 Constitutional: This is a well developed, well nourished patient who is awake, alert, rn and in no acute distress. Ambulatory to room without difficulty or assistance. Head/Face: Normocephalic, atraumatic. Eyes: Pupils equal round and reactive to light, extra-ocular motions intact. Lids and lashes normal. Conjunctiva and sclera are non-icteric and not injected. Cornea within normal limits. Periorbital areas with no swelling, redness, or edema. ENT: no stridor Neck: Trachea midline, no swelling, no masses Cardiovascular: Regular rate and rhythm. No pulse deficits. Respiratory: No increased work of breathing, no retractions or nasal flaring. Skin: Warm, dry MS/ Extremity: Pulses equal, no cyanosis. Neuro: Awake and alert, GCS 15 Vital Signs: 07:23 BP 144 / 75; Pulse 95; Resp 17; Temp 98.4; Pulse Ox 99% ; Weight 104.33 kg; Height 5 ll1 ft. 1 in. (154.94 cm); Pain 6/10; 08:51 BP 114 / 93; Pulse 88; Resp 17; Pulse Ox 99% ; ll1 07:23 Body Mass Index 43.46 (104.33 kg, 154.94 cm) ll1 MDM: 07:15 Patient medically screened. rn 08:43 Differential Diagnosis: Bronchitis Influenza Upper Respiratory Infection Viral Syndrome rn Pneumonia. Data reviewed: vital signs, nurses notes, lab test result(s), radiologic studies, plain films, and as a result, I will discharge patient. Counseling: I had a detailed discussion with the patient and/or guardian regarding: the historical points, exam findings, and any diagnostic results supporting the discharge/admit diagnosis, lab results, radiology results, the need for outpatient follow up, to return to the emergency department if symptoms worsen or persist or if there are any questions or concerns that arise at home. Special discussion: I discussed with the patient/guardian in detail that at this point there is no indication for admission to the hospital. It is understood, however, that if the symptoms persist or worsen the patient needs to return immediately for re-evaluation. ED course: Clear CXr, neg flu/covid/strep, recommend smoking cessation and most likely viral illness given constellation of symptoms.. 01/22 07:20 Order name: Strep; Complete Time: 08:10 rn 01/22 07:20 Order name: XRAY Chest (1 view); Complete Time: 08:43 rn 01/22 08:11 Order name: Throat Culture ED[facility] 01/22 08:35 Order name: COVID-19/FLU A+B; Complete Time: 08:43 ED[facility] Administered Medications: No medications were administered Disposition: 01/22/21 08:45 Discharged to Home. Impression: Acute upper respiratory infection, unspecified, Viral Syndrome. - Condition is Stable. - Discharge Instructions: Upper Respiratory Infection, Adult, Viral Respiratory Infection. - Medication Reconciliation Form, Thank You Letter, Antibiotic Education, Prescription Opioid Use form. - Follow up: Private Physician; When: As needed; Reason: Recheck today's complaints, Re-evaluation by your physician. - Problem is new. - Symptoms have improved. Signatures: Dispatcher [employer] [facility] Braxton Pimentel MD MD rn Lewis, Lynsay, RN RN ll1 Corrections: (The following items were deleted from the chart) 07:51 07:21 CORONAVIRUS+MR.LAB.BRZ ordered. [facility] 07:53 07:21 Influenza Screen (A \T\ B)+BA.LAB.BRZ ordered. [facility] 08:52 08:45 01/22/2021 08:45 Discharged to Home. Impression: Acute upper respiratory ll1 infection, unspecified; Viral Syndrome. Condition is Stable. Forms are Medication Reconciliation Form, Thank You Letter, Antibiotic Education, Prescription Opioid Use. Follow up: Private Physician; When: As needed; Reason: Recheck today's complaints, Re-evaluation by your physician. Problem is new. Symptoms have improved. rn
[2021-01-22 09:07] VITALS: BP 114/93; O2SAT 99
[2021-01-22 09:08] VITALS: TEMP 98.4
== END 2021-01-22 08:52 | disposition home or self-care (01) ==
LOC: ER 07:09
DX: J06.9 Acute upper respiratory infection, unspecified (principal); B34.9 Viral infection, unspecified; Z20.822 Contact with and (suspected) exposure to COVID-19; F17.210 Nicotine dependence, cigarettes, uncomplicated; J45.909 Unspecified asthma, uncomplicated
CPT/HCPCS: 87070; 87081; 0240U; 71045; 99283

== ENCOUNTER 2021-04-23 07:08 | Emergency (ER) | payer OTHER ==
--- OUTSIDE RECORDS SUMMARY | 2021-04-23 07:10 | XMS REPORT | Continuity of Care Document ---
:1995 Author Organization [facility] t Address [address] [place] [address] Care Team Providers Name Role Phone Asked, Pcp Primary Care Physician Unavailable Zeferino CASTRO, Yash Attending Clinician Ashley Vargas MD Attending Clinician 2, Lab Attending Clinician Unavailable Mayur Butler MD Attending Clinician MD MAYUR BUTLER Attending Clinician Unavailable MD MAYUR BULTER Admitting Clinician Unavailable Payers Payer Name Policy Type Policy Number Effective Date Expiration Date S ource Problems Condition Condition Condition Status Onset Resolution Last Treating Co mments Source Name Details Category Date Date Treatment Clinician Date Disease Active Met [facility] 00:00: Hospita 00 l Encounter Encounter Disease Active Met hodi for for 4- st suspected suspected 00:00: Hosp zhane problem problem 00 l with with growth, growth, ruled out ruled out IUGR IUGR Disease Active [facility] (intrauter (intrauter 3-23 st ine growth ine growth 00:00: Ho spita restrictio restrictio 00 l n) n) affecting affecting care of care of mother mother Poor Poor Disease Active M ethodi growth growth 3-08 st affecting affecting 00:00: Hosp zhane management management 00 l of mother of mother Encounter Encounter Disease Active Met hodi for for 2-15 st 00:00: Hosp zhane screening screening 00 l of mother of mother Maternal Maternal Disease Active Metho di care for care for 1-04 st other other 00:00: Hospita (suspected (suspected 00 l ) ) abnormalit abnormalit y and y and damage, damage, not not applicable applicable or or unspecifie unspecifie d d Obesity Obesity Disease Active Methodi affecting affecting -04 , , 00:00: Ho spita antepartum antepartum 00 l Allergies, Adverse Reactions, Alerts This patient has no known allergies or adverse reactions. Social History Social Habit Start Date Stop Date Quantity Comments Source [facility] Tobacco use and 2019-03-29 2019-03-29 Never used Jew exposure 00:00:00 00:00:00 [facility] Alcohol intake 2019-03-29 2019-03-29 Current drinker Metho dist 00:00:00 00:00:00 of [facility] (finding) Sex Ass[birth year] At [birth year] Jew 00:00:00 00:00:00 [facility] Smoking Status Start Date Stop Date Source Former smoker 2019-03-29 00:00:00 2019-03-29 00:00:00 [facility] Medications Ordered Filled Start Stop Current Ordering Indication Dosage Frequency Signature Comments Components Source Medication Medication Date Date Medication? Clinician (SIG) Name Name naproxen 2018-08 Yes TAKE 1 [facility] (NAPROSYN) 0-[address] 500 MG 00:00: MOUTH Hospita tablet 00 TWICE A l DAY WITH MEALS SPRINTEC, Yes 1{tbl} QD Take 1 Meth dorothea 28, 0.25-35 7-[address] mg-mcg per 00:00: mouth once H ospita tablet 00 daily. l Immunizations Ordered Immunization Filled Immunization Date Status Commen ts Source Name Name PFIZER COVID-19 MRNA 2021-01-17 Completed Meth odist VACCINATION 00:00:00 [facility] PFIZER COVID-19 MRNA 2020-12-27 Completed Meth odist VACCINATION 00:00:00 [facility] Tdap 2016-11-06 Completed Jew 00:00:00 Hospital Procedures Procedure Date / Time Performed Performing Clinician Kerline BOWSERID-19 QUALITATIVE 2020-07-12 20:45:00 [facility] RT-PCR Plan of Care Planned Activity Planned Date Details Comments Source Future Scheduled Test [facility] (procedure) [code = 089198507] Future Scheduled Test Screening for [facility] malignant neoplasm of cervix (procedure) [code = 689376597] Future Scheduled Test INFLUENZA VACCINE [facility] [code = INFLUENZA VACCINE] Encounters Start End Encounter Admission Attending Care Care Encounter Source Date/Time Date/Time Type Type Clinicians Facility Department ID 2021-01-19 2021-01-19 Case Angelina Mcgarry [facility] [id number] 00:00:00 00:00:00 Management [place] [id number] [place] [id number] Professio [phone] [address] 2021-01-19 2021-01-19 Telephone Angelina Mcgarry [facility] [id number] 00:00:00 00:00:00 [place] [id number] [place] [id number] Professio [phone] [address] 2021-01-17 2021-01-17 Clinical Septimus, [id number] Method[facility] 15:47:27 15:52:27 Support Antelmo Ramirez [address]75.1.[address] 3.430.2.7 Hospit a .3.174983 l .8 2021-01-17 2021-01-17 Coffee Maker Servicer 2, Adc Lab [facility] [id number] 13:15:45 13:30:45 [place] [id number] [place] [id number] Professio [phone] [address] 2021-01-17 2021-01-17 Case Angelina Mcgarry [facility] [id number] 00:00:00 00:00:00 Management [place] [id number] [place] [id number] Professio [phone] [facility] 2021-01-172021-01-17 Outpatient SEPTIMUS, [facility] [id number] [place] 00:00:00 00:00:00 ANTELMO [address] [facility] 2021-01-08 2021-01-08 Coffee Maker Servicer 2, Adc Lab [facility] [id number] 08:34:07 08:49:07 [place] [id number] [place] 4.2.7.2.686 Professio [phone] [address] 2021-01-01 2021-01-01 Coffee Maker Servicer 2, Adc Lab [facility] [id number] 08:47:10 09:02:10 [place] [id number] [place] [id number] Professio [phone] [address] 2021-01-01 2021-01-01 Case Angelina Mcgarry [facility] [id number] 00:00:00 00:00:00 Management [place] [id number] [place] 4.2.7.2.686 Professio [phone] [address] 2021-01-01 2021-01-01 Case Padma Mcgarryen [facility] [id number] 00:00:00 00:00:00 Management [place] [id number] [place] 4.2.7.2.686 Professio [phone] [address] 2020-12-27 2020-12-27 Clinical 1.2.840.1 [id number] [facility] 14:49:37 14:54:[address] 3.430.2.7 Hospit a .3.091601 l .8 2020-12-27 2020-12-27 Coffee Maker Servicer 2, Adc Lab [facility] [id number] 10:33:06 10:48:06 [place] [id number] [place] 4.2.7.2.686 Professio [phone] [address] 2020-12-27 2020-12-27 Office Padma Mcgarryen [facility] [id number] 09:56:00 10:24:34 Visit Yash Goodwin 350.1.13.10 [place] 4.2.7.2.686 Mamie [phone] nal [address] [facility] 2020-12-27 2020-12-27 Outpatient [facility] [id number] 349 [place] 00:00:00 00:00:[address] 2020-07-12 2020-07-12 Lab Carrie 1.2.840.1 [id number] [facility] 14:21:08 14:26:[address] Mayur 3.430.2.7 Hospit a .3.923926 l .8 2020-07-12 2020-07-12 Outpatient CARRIE [facility] [id number] [place] 00:00:00 00:00:00 JOSE [address] Results Test Description Test Time Test Comments Results Result Comments Source COVID-19 qualitative PCR 2020-07-13 04:47:50 Test Item Value Reference Range Interpretation Comme nts Interpretation (test code = Negative results do not 2124070) preclude 2019-nCoV infection and should not be used as the sole basis for treatment or other patient management decisions. Negative results must be combined with clinical observations, patient history, and epidemiological information. COVID-19 qualitative RT-PCR Not-Detected Not-Detected result (test code = 64524-2) COVID-19 qualitative RT-PCR See link below for PDF Lab Case Number: (test code = 7070) Report [id number] [address] [place], [place] [address]ARS-CoV-2 (COVID-19) RNA [Presence] in Respiratory specimen by ANGELA with probe [id number] 22:47:32 Test Item Value Reference Range Interpretation Comments SARS-CoV-2 (COVID-19) RNA Not detected Not-Detected [Presence] in Respiratory specimen by ANGELA with probe detection (test code = 66271-9)
[2021-04-23 07:38] LABS: Urine Blood Negative (Negative); Urine Glucose Negative (Negative); Urine Protein Negative (Negative); Urine Specific Gravity 1.025 (1.005-1.030); Urine pH 6.5 (5.0-7.0)
[2021-04-23 08:06] LABS: Urine Specific Gravity/Preg 1.025 (1.005-1.030)
[2021-04-23] MEDS ORDERED: PROMETHAZINE INJ 25 MG/ML AMP ONE (09:17)
--- NOTE | 2021-04-23 09:25 | ER ---
Nurse's Notes [facility] Name: Sosa Norris Age: 26 yrs Sex: Female : 1995 Arrival Date: 04/23/2021 Time: 07:11 Bed 12 Private MD: Diagnosis: Vomiting of , unspecified Presentation: 04/23 07:29 Chief complaint: Patient states: N/V that began a few days ago. Pt reports + home UPT 2 ss weeks ago. Has not taken one since and is unsure her nausea is due to her being as she has not taken another test. Coronavirus screen: Vaccine status: Patient reports receiving the 2nd dose of the covid vaccine. Client denies travel out of the [place] in the last 14 days. Ebola Screen: Patient denies exposure to infectious person. Patient denies travel to an Ebola-affected area in the 21 days before illness onset. Initial Sepsis Screen: Does the patient meet any 2 criteria? No. Patient's initial sepsis screen is negative. Does the patient have a suspected source of infection? No. Patient's initial sepsis screen is negative. Risk Assessment: Do you want to hurt yourself or someone else? Patient reports no desire to harm self or others. Onset of symptoms was April 2021. 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 - Social history:: Smoking status: Patient reports the use of cigarette tobacco products, denies chronic smoking, but will smoke occasionally. Screenin:19 Abuse screen: Denies threats or abuse. Denies injuries from another. Nutritional ss screening: No deficits noted. Tuberculosis screening: Never had TB. Fall Risk None identified. Assessment: 08:18 General: Appears in no apparent distress. comfortable, Behavior is calm, cooperative, ss Denies fever, feeling ill, fatigue, chills. Pain: Denies pain. Neuro: Level of Consciousness is awake, alert, obeys commands, Oriented to person, place, time, situation. Cardiovascular: Capillary refill < 3 seconds is brisk in bilateral fingers Patient's skin is warm and dry. Respiratory: Airway is patent Respiratory effort is even, unlabored, Respiratory pattern is regular, symmetrical. GI: Reports nausea, vomiting. GI: Abdomen is non-distended. EENT: Nares are clear. Derm: Skin is intact, is healthy with good turgor, Skin is dry, Skin is pink, warm \T\ dry. normal. Musculoskeletal: Range of motion: intact in all extremities. 08:18 : Denies burning with urination, urinary frequency. ss 08:20 Reassessment: Pt ambulated to exam room with steady gait. ss 08:45 Reassessment: No changes from previously documented assessment. Patient and/or family ll1 updated on plan of care and expected duration. Pain level reassessed. Patient is alert, oriented x 3, equal unlabored respirations, skin warm/dry/pink. 09:32 Reassessment: No changes from previously documented assessment. Patient and/or family ll1 updated on plan of care and expected duration. Pain level reassessed. Patient is alert, oriented x 3, equal unlabored respirations, skin warm/dry/pink. Patient states feeling better. Patient states symptoms have improved. Vital Signs: 07:29 BP 137 / 90; Pulse 82; Resp 14; Temp 97.4(TE); Pulse Ox 100% on R/A; Weight 104.33 kg; ss Height 5 ft. 0 in. (152.40 cm); Pain 0/10; 09:31 BP 126 / 76; Pulse 68; Resp 16; Pulse Ox 100% ; Pain 0/10; ll1 07:29 Body Mass Index 44.92 (104.33 kg, 152.40 cm) ED Course: 07:11 Patient arrived in ED. ds1 07:31 Triage completed. ss 07:31 Arm band placed on right wrist. ss 07:50 Urine collected: clean catch specimen, clear. ss 08:18 Destini Gramajo RN is Primary Nurse. ss 08:18 Chaz Pedersen NP is PHCP. pm1 08:19 Cj Tanner MD is Attending Physician. pm1 08:20 Patient has correct armband on for positive identification. Bed in low position. Call ss light in reach. 09:32 No provider procedures requiring assistance completed. Patient did not have IV access ll1 during this emergency room visit. Administered Medications: 08:57 Drug: Phenergan (promethazine) 12.5 mg Route: IM; Site: right vastus lateralis; ll1 09:32 Follow up: Response: No adverse reaction; Nausea is decreased ll1 Outcome: 09:24 Discharge ordered by MD. pm1 09:30 Discharged to home ambulatory. ll1 09:30 Condition: stable 09:30 Discharge instructions given to patient, Instructed on discharge instructions, follow up and referral plans. medication usage, Demonstrated understanding of instructions, follow-up care, medications, Prescriptions given X 1. 09:31 Patient left the ED. ll1 Signatures: Heather Nice ds1 Destini Gramajo, BALWINDER RN Chaz Rowe NP POWER TRANSFORMER REPAIR SUPERVISOR pm1 Malachi Guaman RN RN ll1
--- NOTE | 2021-04-23 09:25 | EDPHYS ---
Physician Documentation [facility] Name: Sosa Norris Age: 26 yrs Sex: Female : 1995 Arrival Date: 04/23/2021 Time: 07:11 Bed 12 Private MD: OPAL Physician Cj Tanner HPI: 04/23 08:36 This 26 yrs old Female presents to ER via Ambulatory with complaints of pm1 Nausea/Vomiting. 08:36 The patient presents to the emergency department with nausea, vomiting. pm1 08:36 Onset: The symptoms/episode began/occurred 2 day(s) ago. Possible causes: Possible pm1 . Patient with faint positive home test at home approximately 2 weeks ago. Patient has not taken a test since then. The symptoms are aggravated by nothing. The symptoms are alleviated by nothing. Associated signs and symptoms: Pertinent negatives: abdominal pain, dysuria, fever. The patient has not experienced similar symptoms in the past. The patient has not recently seen a physician. 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 - Social history:: Smoking status: Patient reports the use of cigarette tobacco products, denies chronic smoking, but will smoke occasionally. ROS: 08:36 Constitutional: Negative for fever, chills, and weight loss, Cardiovascular: Negative pm1 for chest pain, palpitations, and edema, Respiratory: Negative for shortness of breath, cough, wheezing, and pleuritic chest pain. 08:36 Back: Negative for injury and pain, MS/Extremity: Negative for injury and deformity, Skin: Negative for injury, rash, and discoloration, Neuro: Negative for headache, weakness, numbness, tingling, and seizure. 08:36 Abdomen/GI: Positive for nausea and vomiting, Negative for abdominal pain, diarrhea, constipation. 08:36 All other systems are negative. Exam: 08:36 Constitutional: This is a well developed, well nourished patient who is awake, alert, pm1 and in no acute distress. Head/Face: Normocephalic, atraumatic. 08:36 Back: No spinal tenderness. No costovertebral tenderness. Full range of motion. Skin: Warm, dry with normal turgor. Normal color with no rashes, no lesions, and no evidence of cellulitis. MS/ Extremity: Pulses equal, no cyanosis. Neurovascular intact. Full, normal range of motion. 08:36 ENT: Exam is negative for acute changes, Mouth: Lips: normal, moist, Oral mucosa: normal, pink and intact, moist. 08:36 Abdomen/GI: Inspection: abdomen appears normal, Palpation: abdomen is soft and non-tender, in all quadrants. 08:36 Neuro: Exam negative for acute changes, Orientation: is normal, Mentation: is normal, Motor: is normal, moves all fours. Vital Signs: 07:29 BP 137 / 90; Pulse 82; Resp 14; Temp 97.4(TE); Pulse Ox 100% on R/A; Weight 104.33 kg; ss Height 5 ft. 0 in. (152.40 cm); Pain 0/10; 09:31 BP 126 / 76; Pulse 68; Resp 16; Pulse Ox 100% ; Pain 0/10; ll1 07:29 Body Mass Index 44.92 (104.33 kg, 152.40 cm) ss MDM: 08:19 Patient medically screened. pm1 08:19 Data reviewed: vital signs. Data interpreted: Pulse oximetry: on room air is 100 %. pm1 Interpretation: normal. 08:19 Counseling: I had a detailed discussion with the patient and/or guardian regarding: the pm1 historical points, exam findings, and any diagnostic results supporting the discharge/admit diagnosis, lab results. 08:36 ED course: Patient refuse Covid and flu swab. Patient reports recent Covid test that pm1 was negative. 09:19 ED course: Reports improvement in her nausea with Phenergan IM and she states she is pm1 ready to go home. Will discharge the patient home with Phenergan prescription. 09:21 Counseling: I had a detailed discussion with the patient and/or guardian regarding: the pm1 need for outpatient follow up, an OB/Gyne specialist, to return to the emergency department if symptoms worsen or persist or if there are any questions or concerns that arise at home. 04/23 07:37 Order name: Urine Dipstick-Ancillary; Complete Time: 08:18 EDCO 04/23 07:42 Order name: Urine --Ancillary (enter results); Complete Time: 08:18 bd Administered Medications: 08:57 Drug: Phenergan (promethazine) 12.5 mg Route: IM; Site: right vastus lateralis; ll1 09:32 Follow up: Response: No adverse reaction; Nausea is decreased ll1 Disposition: 15:13 Co-signature as Attending Physician, Cj Tanner MD I agree with the assessment and erin plan of care. Disposition Summary: 04/23/21 09:24 Discharge Ordered Location: Home pm1 Problem: new pm1 Symptoms: have improved pm1 Condition: Stable pm1 Diagnosis - Vomiting of , unspecified pm1 Followup: pm1 - With: Emergency Department - When: As needed - Reason: Worsening of condition Followup: pm1 - With: Private Physician - When: 2 - 3 days - Reason: Recheck today's complaints, Continuance of care, Re-evaluation by your physician Discharge Instructions: - Discharge Summary Sheet pm1 - Morning Sickness, Wxow-we-Lwuc pm1 Forms: - Medication Reconciliation Form pm1 - Thank You Letter pm1 - Antibiotic Education pm1 - Prescription Opioid Use pm1 Prescriptions: - promethazine 25 mg Oral Tablet - take 1 tablet by ORAL route every 6 hours As needed; 20 tablet; Refills: 0, pm1 Product Selection Permitted Signatures: Dispatcher [employer] [facility] [place] Cj Tanner MD MD cha Smirch, Shelby, RN RN ss Chaz Pedersen, SONYA DISTRICT ENGINEER pm1 Malachi Guaman RN RN 1
[2021-04-23 09:47] VITALS: BP 137/90; TEMP 97.4; O2SAT 100
== END 2021-04-23 09:31 | disposition home or self-care (01) ==
LOC: ER 07:08
DX: O21.9 Vomiting of pregnancy, unspecified (principal); O99.330 Smoking (tobacco) complicating pregnancy, unspecified trimester; F17.210 Nicotine dependence, cigarettes, uncomplicated; Z3A.00 Weeks of gestation of pregnancy not specified
CPT/HCPCS: 81025; 81003; 96372; 99283; J2550

== ENCOUNTER 2021-04-23 22:45 | Emergency (ER) | payer OTHER ==
--- OUTSIDE RECORDS SUMMARY | 2021-04-23 22:49 | XMS REPORT | Continuity of Care Document ---
:1995 Author Organization [facility] t Address [address] [place] [address] Care Team Providers Name Role Phone Asked, [...] Treatment Clinician Date Disease Active [facility] 00:00: Hospita 00 l Encounter Encounter Disease Active [facility] for for 12-11 st suspected suspected 00:00: Hosp zhane problem [...] Active Metho di care for care for -04 other other 00:00: Hospita (suspected (suspected 00 [...] Quantity Comments Source History of Cigarette Smoker [facility] Tobacco use and 2019-03-29 2019-03-29 Never used [facility] exposure 00:00:00 00:00:00 Hospital Alcohol intake 2019-03-29 2019-03-29 Current drinker [facility] dist 00:00:00 00:00:00 of alcohol Hospital (finding) Sex Assigned At [birth year] [facility] 00:00:00 00:00:00 Hospital Smoking Status Start Date Stop Date Source Former smoker 2019-03-29 00:00:00 2019-03-29 00:00:00 [facility] Medications Ordered Filled Start Stop Current Ordering Indication Dosage Frequency Signature Comments Components Source Medication Medication Date Date Medication? Clinician (SIG) Name Name naproxen 2018-08 Yes TAKE 1 [facility] (NAPROSYN) 0-[address] 500 MG 00:00: MOUTH [facility]ospita tablet 00 TWICE A l DAY WITH MEALS naproxen 2018-08 Yes TAKE 1 [facility] (NAPROSYN) 0-[address] 500 MG 00:00: MOUTH [facility]osp[facility] tablet 00 TWICE A l DAY WITH MEALS SPRINTEC, Yes 1{tbl} QD Take 1 Meth dorothea 28, 0.25-35 7-[address] mg-mcg per 00:00: mouth once H ospita tablet 00 daily. l SPRINTEC, Yes 1{tbl} QD Take 1 Meth dorothea 28, 0.25-35 7-[address] mg-mcg per 00:00: mouth once [facility] tablet 00 daily. l Immunizations Ordered Immunization Filled Immunization Date Status Commen ts Source Name Name Paper.li-19 MRNA 2021-01-17 Completed [facility] VACCINATION 00:00:00 Hospital PFIZER COVID-19 MRNA 2021-01-17 Completed Meth odist VACCINATION 00:00:00 [facility] PFIZER COVID-19 MRNA 2020-12-27 Completed Meth odist VACCINATION 00:00:00 [facility] PFIZER COVID-19 MRNA 2020-12-27 Completed Meth odist VACCINATION 00:00:00 Hospital Tdap 2016-11-06 Completed [facility] 00:00:00 [facility] Tdap 2016-11-06 Completed [facility] 00:00:00 Hospital Procedures Procedure Date / Time Performed Performing [facility]-19 QUALITATIVE 2020-07-12 20:45:[address] [facility] RT-PCR Plan of Care Planned Activity Planned Date Details Comments Source Future Scheduled Test Hepatitis C screening [facility] [place] (procedure) [code = 457161716] Future Scheduled Test Screening for [facility] malignant neoplasm of cervix (procedure) [code = 235853431] Future Scheduled Test INFLUENZA VACCINE [facility] [code = INFLUENZA VACCINE] Future Scheduled Test Hepatitis C screening [facility] [place] (procedure) [code = 482293989] Future Scheduled Test Screening for [facility] malignant neoplasm of cervix (procedure) [code = 490834543] Future Scheduled Test INFLUENZA VACCINE [facility] [code = INFLUENZA VACCINE] Encounters Start End Encounter Admission Attending Care Care Encounter Source Date/Time Date/Time Type Type Clinicians Facility Department ID 2021-01-19 2021-01-19 Case Angelina Mcgarry [facility] T [id number] 00:00:00 00:00:00 Management Yash Goodwin [id number] [place] 4.2.7.2.686 Professio [id number] [address] 2021-01-19 2021-01-19 Telephone Zeferino Angelina MOHAN [id number] 00:00:00 00:00:00 Yash Goodwin [id number] [place] 4.2.7.2.686 Professio [id number] [address] 2021-01-17 2021-01-17 Clinical Septimus, 1.2.840.1 [id number] Methodi 15:47:27 15:52:27 Support Antelmo Ramirez 22277.1.[address] 3.430.2.7 Hospit a .3.931866 l .8 2021-01-17 2021-01-17 Clinical Septimus, 1.2.840.1 [id number] Methodi 15:47:27 15:52:27 Support Antelmo Ashley 00097.1.[address] 3.430.2.7 Hospit a .3.623964 l .8 2021-01-17 2021-01-17 Senior Animator 2, Adc Lab [facility] 1.2.840.114 [id number] 13:15:45 13:30:45 Visit Ronan [id number] [place] 4.2.7.2.686 Professio [id number] [address] 2021-01-17 2021-01-17 Case Angelina Mcgarry [facility] [id number] 00:00:00 00:00:00 Management Cam Ronan [id number] [place] 4.2.7.2.686 Professio [id number] [address] 2021-01-08 2021-01-08 Senior Animator 2, Adc Lab [facility] 1.2.840.114 [id number] 08:34:07 08:49:07 Visit Ronan [id number] [place] 4.2.7.2.686 Professio [id number] [address] 2021-01-01 2021-01-01 Senior Animator 2, Adc Lab [facility] 1.2.840.114 [id number] 08:47:10 09:02:10 Visit Ronan 350.1.13.10 [place] 4.2.7.2.686 Professio [id number] [address] 2021-01-01 2021-01-01 Case Angelina Mcgarry [facility] [id number] 00:00:00 00:00:00 Management Cam Ronan [id number] [place] 4.2.7.2.686 Professio [id number] [address] 2021-01-01 2021-01-01 Case Angelina Mcgarry [facility] [id number] 00:00:00 00:00:00 Management Cam Ronan 350.1.13.10 [place] 4.2.7.2.686 Professio [id number] critical access hospital [address] [facility] 2020-12-27 2020-12-27 Clinical 1.2.840.1 [id number] Methodi 14:49:37 14:54:[address] 3.430.2.7 Hospit a .3.104736 l .8 2020-12-27 2020-12-27 Clinical 1.2.840.1 [id number] Methodi 14:49:37 14:54:[address] 3.430.2.7 Hospit a .3.844216 l .8 2020-12-27 2020-12-27 Senior Animator 2, [facility] 1.2.840.114 [id number] 10:33:06 10:48:06 Visit Christa 350.1.13.10 [place] 4.2.7.2.686 Professio [id number] [address] 2020-12-27 2020-12-27 Office Angelina Mcgarry [facility] [id number] 09:56:00 10:24:34 Visit Yash Goodwin 350.1.13.10 [place] 4.2.7.2.686 Professio [id number] [address] 2020-07-12 2020-07-12 Lab Reggie, 1.2.840.1 [id number] Methodi 14:21:08 14:26:[address] [place] 3.430.2.7 Hospit a .3.342256 l .8 2020-07-12 2020-07-12 Lab Reggie 1.2.840.1 [id number] Methodi 14:21:08 14:26:[address] [place] 3.430.2.7 Hospit a .3.565497 l .8 Results Test Description Test Time Test Comments Results Result Comments Source COVID-19 qualitative PCR 2020-07-13 04:47:50 Test Item Value Reference Range Interpretation Comme nts Interpretation (test code = Negative results do not 2473820) preclude 2019-nCoV infection and should not be used as the sole basis for treatment or other patient management decisions. Negative results must be combined with clinical observations, patient history, and epidemiological information. COVID-19 qualitative RT-PCR Not-Detected Not-Detected result (test code = 91291-3) COVID-19 qualitative RT-PCR See link below for PDF Lab Case Number: (test code = 7070) Report [id number] [address] [facility] [place] TxCOVID-19 qualitative [id number] 04:47:50 Test Item Value Reference Range Interpretation Comments Interpretation (test Negative results do code = 3707312) not preclude 2019-nCoV infection and should not be used as the sole basis for treatment or other patient management decisions. Negative results must be combined with clinical observations, patient history, and epidemiological information. COVID-19 qualitative Not-Detected Not-Detected RT-PCR result (test code = 92514-0) COVID-19 qualitative See link below for C ase Number: RT-PCR (test code = PDF Lab Report [id number]) [facility] [place]
[2021-04-24] MEDS ORDERED: NA CHLORIDE 0.9% 1,000 ML ONE ×2 (02:08→02:41)
[2021-04-24] MEDS ORDERED: ONDANSETRON 4 MG/2 ML VIAL ONE (02:08)
[2021-04-24 02:37] LABS: Basophils % 0.4 % (0-1.3); Hematocrit 35.2 % (36.0-45.0); Lymphocytes % 10.8 % (15.3-44.8); MPV 9.2 fL (7.6-11.3); RBC Red Blood Cell Count 4.41 M/uL (3.86-4.86)
[2021-04-24 03:06] LABS: BUN Blood Urea Nitrogen 9 mg/dL (7-18); Bicarbonate 23 mmol/L (21-32); Glucose Level 113 mg/dL (74-106); HCG, Quantitative 15488 mIU/mL (1-3); Potassium 3.7 mmol/L (3.5-5.1); Sodium Level 137 mmol/L (136-145)
--- NOTE | 2021-04-24 03:36 | EDPHYS ---
Physician Documentation [facility] Name: Sosa Norris Age: 26 yrs Sex: Female : 1995 Arrival Date: 04/23/2021 Time: 22:47 Bed DX2 Private MD: ED Physician Chato Mcgarry HPI: 04/24 02:42 This 26 yrs old Female presents to ER via Ambulatory with complaints of pkl Nausea/Vomiting. 02:42 The patient presents to the emergency department with nausea, vomiting. Onset: The pkl symptoms/episode began/occurred yesterday. The patient has been recently seen at the [facility] Emergency Department, today, for similar complaints. Patient is about 6 weeks . 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 - Social history:: Smoking status: Patient reports the use of cigarette tobacco products, denies chronic smoking, but will smoke occasionally. ROS: 04/24 02:42 Eyes: Negative for injury, pain, redness, and discharge, ENT: Negative for injury, pkl pain, and discharge, Neck: Negative for injury, pain, and swelling, Cardiovascular: Negative for chest pain, palpitations, and edema, Respiratory: Negative for shortness of breath, cough, wheezing, and pleuritic chest pain. Abdomen/GI: Positive for nausea and vomiting. Back: Negative for acute changes. : Negative for urinary symptoms. MS/extremity: Negative for acute changes. Skin: Negative for rash. Neuro: Negative for altered mental status, loss of consciousness. Exam: 02:42 Head/Face: Normocephalic, atraumatic. Eyes: Pupils equal round and reactive to light, pkl extra-ocular motions intact. Lids and lashes normal. Conjunctiva and sclera are non-icteric and not injected. Cornea within normal limits. Periorbital areas with no swelling, redness, or edema. ENT: Nares patent. No nasal discharge, no septal abnormalities noted. Tympanic membranes are normal and external auditory canals are clear. Oropharynx with no redness, swelling, or masses, exudates, or evidence of obstruction, uvula midline. Mucous membranes moist. Neck: Trachea midline, no thyromegaly or masses palpated, and no cervical lymphadenopathy. Supple, full range of motion without nuchal rigidity, or vertebral point tenderness. No Meningismus. Chest/axilla: Normal chest wall appearance and motion. Nontender with no deformity. No lesions are appreciated. Cardiovascular: Regular rate and rhythm with a normal S1 and S2. No gallops, murmurs, or rubs. Normal PMI, no JVD. No pulse deficits. Respiratory: Lungs have equal breath sounds bilaterally, clear to auscultation and percussion. No rales, rhonchi or wheezes noted. No increased work of breathing, no retractions or nasal flaring. Abdomen/GI: Soft, non-tender, with normal bowel sounds. No distension or tympany. No guarding or rebound. No evidence of tenderness throughout. Back: No spinal tenderness. No costovertebral tenderness. Full range of motion. Skin: Warm, dry with normal turgor. Normal color with no rashes, no lesions, and no evidence of cellulitis. MS/ Extremity: Pulses equal, no cyanosis. Neurovascular intact. Full, normal range of motion. Neuro: Awake and alert, GCS 15, oriented to person, place, time, and situation. Cranial nerves II-XII grossly intact. Motor strength 5/5 in all extremities. Sensory grossly intact. Cerebellar exam normal. Normal gait. Vital Signs: 04/23 23:22 BP 142 / 86; Pulse 86; Resp 20; Temp 97.9(TE); Pulse Ox 100% on R/A; Weight 104.33 kg kg (R); Height 5 ft. 4 in. (162.56 cm) (R); Pain 0/10; 04/24 03:45 BP 128 / 60; Pulse 76; Resp 18; Temp 98; Pulse Ox 99% ; ea 04/23 23:22 Body Mass Index 39.48 (104.33 kg, 162.56 cm) kg MDM: 01:29 Patient medically screened. pkl 03:05 Data reviewed: vital signs, nurses notes, lab test result(s). pkl 03:30 ED course: Patient feeling better. Discussed lab results with patient. Advised to pkl follow up with her [employer] Lead in 2 to 3 days. Patient understood instructions. 04/24 01:37 Order name: CBC with Diff pkl 04/24 01:37 Order name: Chem 7 pkl 04/24 01:37 Order name: Quantitative Hcg; Complete Time: 03:29 pkl 04/24 01:37 Order name: Rh Typing pkl 04/24 01:37 Order name: CBC with Automated Diff; Complete Time: 03:05 EDMS 04/24 01:37 Order name: Basic Metabolic Panel; Complete Time: 03:29 EDMS Administered Medications: 01:59 Drug: NS 0.9% 1000 ml Route: IV; Rate: 1000 ml; Site: right forearm; ea 03:51 Follow up: Response: No adverse reaction; IV Status: Completed infusion; IV Intake: ea 1000ml 01:59 Drug: Zofran (Ondansetron) 4 mg Route: IVP; Site: right forearm; ea 03:49 Follow up: Response: No adverse reaction ea 01:59 Not Given (Other Intervention Used): Diclegis Delayed Release Tablet 10 mg-10 mg 2 tabs ea PO once 02:16 Drug: NS 0.9% 1000 ml Route: IV; Rate: 125 ml/hr; Site: right forearm; ea 03:51 Follow up: Response: No adverse reaction; IV Status: Completed infusion; IV Intake: ea 1000ml Disposition Summary: 04/24/21 03:36 Discharge Ordered Location: Home pkl Problem: new pkl Symptoms: have improved pkl Condition: Stable pkl Diagnosis - Hyperemesis gravidarum pkl Followup: pkl - With: Private Physician - When: 2 - 3 days - Reason: Re-evaluation by your physician Discharge Instructions: - Discharge Summary Sheet pkl Forms: - Medication Reconciliation Form pkl - Thank You Letter pkl - Antibiotic Education pkl - Prescription Opioid Use pkl - Work release form ea Prescriptions: - Diclegis 10-10 mg Oral tablet,delayed release (DR/EC) - take 1 tablet by ORAL route once daily; 6 tablet; Refills: 0, Product Selection pkl Permitted Signatures: Dispatcher [employer] Chato Eddy MD MD pkl Claudia Vasquez RN RN ea Graham, Kristen, RN RN kg Corrections: (The following items were deleted from the chart) 04/23 23:28 23:27 Home Meds: Unable to obtain; kg kg 23:28 23:27 PSHx: Cholecystectomy; kg kg
--- NOTE | 2021-04-24 03:36 | ER ---
Nurse's Notes [facility] Name: Sosa Norris Age: 26 yrs Sex: Female : 1995 Arrival Date: 04/23/2021 Time: 22:47 Bed DX2 Private MD: Diagnosis: Hyperemesis gravidarum Presentation: 04/23 23:22 Chief complaint: Patient states: Nausea vomiting starting at 03:00. Pt stated, " I was kg here this morning and I received Phenergan shot and was sent home and I slept a little but the nausea and vomiting hasnt stopped. I was told to come back if it didn't get any better.". Coronavirus screen: Vaccine status: Patient reports receiving the 2nd dose of the covid vaccine. Date January 17, 2021 [employer] Patient reports receiving the 1st dose of the Covid vaccine. Date December 27, 2020 [employer] Client denies travel out of the [place] in the last 14 days. At this time, the client does not indicate any symptoms associated with coronavirus-19. Ebola Screen: Patient negative for fever greater than or equal to 101.5 degrees Fahrenheit, and additional compatible Ebola Virus Disease symptoms Patient denies exposure to infectious person. Patient denies travel to an Ebola-affected area in the 21 days before illness onset. Initial Sepsis Screen: Does the patient meet any 2 criteria? No. Patient's initial sepsis screen is negative. Does the patient have a suspected source of infection? No. Patient's initial sepsis screen is negative. Risk Assessment: Do you want to hurt yourself or someone else? Patient reports no desire to harm self or others. Onset of symptoms was April 23, 2021 at 03:00. 23:22 Method Of Arrival: Ambulatory kg 23:22 Acuity: SEGUNDO 4 kg Triage Assessment: 23:27 General: Appears in no apparent distress. Behavior is calm, cooperative, appropriate kg for age, quiet. Pain: Denies pain. GI: Reports intolerance of fluids, intolerance of food, nausea, vomiting. 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 - Social history:: Smoking status: Patient reports the use of cigarette tobacco products, denies chronic smoking, but will smoke occasionally. Screenin:28 Abuse screen: Denies threats or abuse. Denies injuries from another. Nutritional kg screening: No deficits noted. Tuberculosis screening: No symptoms or risk factors identified. Fall Risk None identified. Assessment: 04/24 02:00 General: Appears uncomfortable, Behavior is calm, cooperative, appropriate for age. ea Pain: Denies pain. Neuro: Level of Consciousness is awake, alert, obeys commands, Oriented to person, place, time. Cardiovascular: Patient's skin is warm and dry. Respiratory: Airway is patent Respiratory effort is even, unlabored, Respiratory pattern is regular, symmetrical. Derm: Skin is pink, warm \\T\\ dry. 02:45 Reassessment: Patient and/or family updated on plan of care and expected duration. Pain ea level reassessed. Pt resting with eyes closed, respirations even and unlabored, chest expansions even and unlabored. 03:49 Reassessment: Patient and/or family updated on plan of care and expected duration. Pain ea level reassessed. Patient is alert, oriented x 3, equal unlabored respirations, skin warm/dry/pink. Discharge instruction given to patient verbalized the understanding of instruction. Pt left ED ambulatory tolerating well. Vital Signs: 04/23 23:22 BP 142 / 86; Pulse 86; Resp 20; Temp 97.9(TE); Pulse Ox 100% on R/A; Weight 104.33 kg kg (R); Height 5 ft. 4 in. (162.56 cm) (R); Pain 0/10; 04/24 03:45 BP 128 / 60; Pulse 76; Resp 18; Temp 98; Pulse Ox 99% ; ea 04/23 23:22 Body Mass Index 39.48 (104.33 kg, 162.56 cm) kg ED Course: 04/23 22:47 Patient arrived in ED. wm 23:27 Triage completed. kg 23:28 Patient has correct armband on for positive identification. kg 04/24 01:29 Chato Mcgarry MD is Attending Physician. pkconsuelo 01:38 Claudia Vasquez, RN is Primary Nurse. ea 01:59 Arm band placed on right wrist. ea 01:59 Inserted saline lock: 20 gauge in right forearm, using aseptic technique. Blood ea collected. 03:50 No provider procedures requiring assistance completed. IV discontinued, intact, ea bleeding controlled, No redness/swelling at site. Pressure dressing applied. Administered Medications: 01:59 Drug: NS 0.9% 1000 ml Route: IV; Rate: 1000 ml; Site: right forearm; ea 03:51 Follow up: Response: No adverse reaction; IV Status: Completed infusion; IV Intake: ea 1000ml 01:59 Drug: Zofran (Ondansetron) 4 mg Route: IVP; Site: right forearm; ea 03:49 Follow up: Response: No adverse reaction ea 01:59 Not Given (Other Intervention Used): Diclegis Delayed Release Tablet 10 mg-10 mg 2 tabs ea PO once 02:16 Drug: NS 0.9% 1000 ml Route: IV; Rate: 125 ml/hr; Site: right forearm; ea 03:51 Follow up: Response: No adverse reaction; IV Status: Completed infusion; IV Intake: ea 1000ml Intake: 03:51 IV: 1000ml; Total: 1000ml. ea 03:51 IV: 1000ml; Total: 2000ml. ea Outcome: 03:36 Discharge ordered by . pkl 03:50 Discharged to home ambulatory, with family. ea 03:50 Condition: stable 03:50 Discharge instructions given to patient, Instructed on discharge instructions, Demonstrated understanding of instructions, follow-up care, medications, Prescriptions given X 1. 03:52 Patient left the ED. ea Signatures: Chato Mcgarry MD MD pkl Antunez, Elena, RN RN Brooke Shah RN RN kg Marsh, Wendy Corrections: (The following items were deleted from the chart) 04/23 23:28 23:27 Home Meds: Unable to obtain; kg kg 23:28 23:27 PSHx: Cholecystectomy; kg kg
[2021-04-24 04:02] VITALS: BP 128/60; TEMP 98; O2SAT 99
== END 2021-04-24 03:52 | disposition home or self-care (01) ==
LOC: ER 22:45
DX: O21.0 Mild hyperemesis gravidarum (principal); Z3A.01 Less than 8 weeks gestation of pregnancy; O99.331 Smoking (tobacco) complicating pregnancy, first trimester; F17.210 Nicotine dependence, cigarettes, uncomplicated
CPT/HCPCS: 96361; 85025; 80048; 36415; 86901; 84702; 96374; 99284; J7030 ×2; J2405

== ENCOUNTER 2021-07-03 03:43 | Emergency (ER) | payer OTHER ==
--- OUTSIDE RECORDS SUMMARY | 2021-07-03 03:51 | XMS REPORT | Continuity of Care Document ---
:1995 Author Organization [facility] t Address [facility] [place] [address] Care Team Providers Name Role Phone Asked, Pcp Primary Care Physician Unavailable LUTHER ZARAGOZA Attending Clinician Unavailable Luther Zaragoza MD Attending Clinician KATIE Attending Clinician Unavailable 2, Lab Attending Clinician Unavailable Katie WICK Attending Clinician Steven CASTRO Attending Clinician Jada Ferguson MD Attending Clinician Trino Brito Attending Clinician Pob, Lab Main Attending Clinician Unavailable Doctor Unassigned, Name Attending Clinician Unavailable Ashley Vargas MD Attending Clinician Berny BRITT Attending Clinician Unavailable 1, Lab Attending Clinician Unavailable Madina CASTRO Attending Clinician Only, Test Attending Clinician Unavailable Hakan Paredes MD Attending Clinician Isatu BRITT Attending Clinician Unavailable STEVEN Attending Clinician Unavailable Jada FERGUSON Admitting Clinician Unavailable LUTHER ZARAGOZA Admitting Clinician Unavailable Jada Ferguson MD Admitting Clinician Luther Zaragoza MD Admitting Clinician Payers Payer Name Policy Type Policy Number Effective Date Expiration Date Valeria le [facility] [id number] 2020 MEDICAID 00:00:00 [place]ICAID OF [place] [id number] 2020 2020 00:00:00 00:00:00 Problems Condition Condition Condition Status Onset Resolution Last Treating Co mments Source Name Details Category Date Date Treatment Clinician Date Acute Acute Disease Active 2020-08 Univers left-sided left-sided 0-11 it y of low back low back 00:00: [place] pain pain 00 Medical without without Branch sciatica sciatica Hyperemesi Hyperemesi Disease Active U nivers s s 9-11 ity of gravidarum gravid[place] 00 [place] Supervisio Supervisio Disease Active U nivers n of high n of high 9-09 ity of risk risk 00:00: [place] 00 [facility] in first in first Branch trimester trimester Nausea and Nausea and Disease Active U nivers vomiting vomiting 9-09 ity of during during 00:00: [place] 00 [facility] Branch Unprotecte Unprotecte Disease Active U nivers d sexual d sexual 5-12 ity of intercours intercours 00:[place] 00 Medical Branch Status Status Disease Active Univers post D&C post D&C 5-12 ity of 00:00: [place] 00 Medical Branch S/P D&C S/P D&C Disease Active Univers (status (status 4-27 ity of post post 00:00: [place] dilation dilation 00 Medica l and and Branch curettage) curettage) Pre-op Pre-op Disease Active Overview: Univer s exam exam 4-22 Added ity of 00:00: automatic [place] 00 ally from Medical request Branch for surgery [id number] Morbid Morbid Disease Active Univers obesity obesity 3-30 ity of with body with body 00:[place] mass index mass index 00 Me dical of of Branch 40.0-49.9 40.0-49.9 Disease Active Uni vers with with 3-30 ity of inconclusi inconclusi 00:[place] ve [place] 00 Medica l viability, viability, Br anch single or single or unspecifie unspecifie d fetus d fetus Missed Missed Disease Active Univers 3-30 ity of 00:00: [place] [id number] Medical Branch Morbid Morbid Disease Active Univers obesity obesity 3-30 ity of with body with body 00:[place] mass index mass index 00 Me dical of of Branch 40.0-49.9 40.0-49.9 Disease Active Met [facility] 00:[facility] 00 l Encounter Encounter Disease Active Met hodi for for 4-26 st suspected suspected 00:00: Hosp zhane problem [...] Obesity Obesity Disease Active Methodi affecting affecting 1-04 st , , 00:00: [facility] antepartum antepartum 00 l Allergies, Adverse Reactions, Alerts Allergy Allergy Status Severity Reaction(s) Onset Inactive Treating Comm ents Source Name Type Date Date Clinician NO KNOWN Drug Active Univers ALLERGIE Class ity of S [facility] Social History Social Habit Start Date Stop Date Quantity Comments Source ASSERTION 2021-03-22 [facility] 00:00:00 [facility] History of Cigarette Smoker Methodis t tobacco use Hospital Exposure to Not sure [facility]-CoV-2 [facility] (event) Branch Alcohol intake 2021-06-25 2021-06-25 Ex-drinker [facility] 00:00:00 00:00:00 (finding) [facility] Tobacco use and 2020-12-11 2020-12-11 Never used Universit y of exposure 00:00:00 00:00:00 [facility] Sex Assigned At [birth year] Universit y of 00:00:00 00:00:00 [facility] Smoking Status Start Date Stop Date Source Unknown if ever smoked [facility] Never smoker [facility] Former smoker 2019-03-29 00:00:00 2019-03-29 00:00:00 [facility] Medications Ordered Filled Start Stop Current Ordering Indication Dosage Frequency Signature Comments Components Source Medication Medication Date Date Medication? Clinician (SIG) Name Name promethazin 2020-08 Take by U nivers e HCl 0-11 10-11 mouth. ity of (PROMETHAZI 11:51: 00:00 [place] NE ORAL) 36 :00 [facility] Branch metoclopram 2020-08 Yes [id number] 10mg Take 1 Univers tori HCl 10 0-11 tablet by ity of mg tablet 00:00: mouth [place] 00 every 6 Medical (six) Branch hours as needed for Nausea and Vomiting (N/V). metoclopram 2020-08 Yes [id number] 10mg Take 1 Univers tori HCl 10 0-11 tablet by ity of mg tablet 00:00: mouth [place] 00 every 6 Medical (six) Branch hours as needed for Nausea and Vomiting (N/V). metoclopram 2020-08 Yes [id number] 10mg Take 1 Univers tori HCl 10 0-11 tablet by ity of mg tablet 00:00: mouth [place] 00 every 6 Medical (six) Branch hours as needed for Nausea and Vomiting (N/V). metoclopram 2020-08 Yes [id number] 10mg Take 1 Univers tori HCl 10 0-11 tablet by ity of mg tablet 00:00: mouth [place] [id number] every 6 Medical (six) Branch hours as needed for Nausea and Vomiting (N/V). Yes Take by Unive rs 25/iron 9-11 mouth. ity of fum/folic/d 22:25: [facility] 36 Medical (-1 Branch ORAL) promethazin Yes Take by Un mariel e HCl 9-11 mouth. ity of (PROMETHAZI 22:25: [place] NE ORAL) 36 Medical Branch 2020-0 Yes Take by Unive rs 25/iron 9-11 mouth. ity of fum/folic/d 22:25: [place] [address] Medical (-1 Branch ORAL) promethazin 2020-0 Yes Take by Un mariel e HCl 9-11 mouth. ity of (PROMETHAZI 22:25: [place] NE ORAL) 36 Medical Branch 0 Yes Take by Unive rs 25/iron 9-11 mouth. ity of fum/folic/d 17:25: [place] [address] Medical (-1 Branch ORAL) promethazin 0 Yes Take by Un mariel e HCl 9-11 mouth. ity of (PROMETHAZI 17:25: [place] NE ORAL) 36 Medical Branch 0 Yes Take by Unive rs 25/iron 9-11 mouth. ity of fum/folic/d 17:25: [place] [address] Medical (-1 Branch ORAL) promethazin 0 Yes Take by Un mariel e HCl 9-11 mouth. ity of (PROMETHAZI 17:25: [place] NE ORAL) Medical Branch 0 Yes Take by Unive rs 25/iron 9-11 mouth. ity of fum/folic/d 17:25: [place] [address] Medical (-1 Branch ORAL) promethazin 0 Yes Take by Un mariel e HCl 9-11 mouth. ity of (PROMETHAZI 17:25: [place] NE ORAL) Medical Branch 0 Yes Take by Unive rs 25/iron 9-11 mouth. ity of fum/folic/d 17:25: [place] [address] Medical (-1 Branch ORAL) promethazin 0 Yes Take by Un mariel e HCl 9-11 mouth. ity of (PROMETHAZI 17:25: [place] NE ORAL) 36 Medical Branch 0 Yes Take by Unive rs 25/iron 9-11 mouth. ity of fum/folic/d 17:25: [place] [address] Medical (-1 Branch ORAL) 0 Yes Take by Unive rs 25/iron 9-11 mouth. ity of fum/folic/d 17:25: [place] [address] Medical (-1 Branch ORAL) 0 Yes Take by Unive rs 25/iron 9-11 mouth. ity of fum/folic/d 17:25: [place] [address] Medical (-1 Branch ORAL) 0 Yes Take by Unive rs 25/iron 9-11 mouth. ity of fum/folic/d 17:25: [place] [address] Medical (-1 Branch ORAL) ondansetron 2020-0 Yes 8mg 8 mg, Slow Univers (ZOFRAN 9-11 IV Push, ity of (PF)) 17:18: Q8HPRN, [place] injection 8 59 Starting Medi asher mg Sat Branch 04/28/21 at 1218, Until Discontinu ed, Routine, Nausea and Vomiting (N/V) ondansetron 2020-0 Yes 8mg 8 mg, Slow Univers (ZOFRAN 9-11 IV Push, ity of (PF)) 17:18: Q8HPRN, [place] injection 8 59 Starting Medi asher mg Sat Branch 04/28/21 at 1218, Until Discontinu ed, Routine, Nausea and Vomiting (N/V) lactated 2020-0 Yes 1000mL at 150 Unive rs ringers IV 9-11 mL/hr, ity of infusion 16:00: 1,000 mL, [place] 1,000 mL 00 IV Medical Infusion, Branch CONTINUOUS , Starting 04/28/21 at 1100, Until Discontinu ed, Routine D5W-LR IV 1-0 Yes 1000mL at 999 Univ ers infusion 9-11 mL/hr, IV ity of 1,000 mL 16:00: [place]fusion, [place] 00 CONTINUOUS Medical , Starting Branch 04/28/21 at 1100, Until Discontinu ed, Routine lactated 1-0 Yes 1000mL at 150 Unive rs ringers IV 9-11 mL/hr, ity of infusion 16:00: 1,000 mL, [place] 1,000 mL 00 IV Medical Infusion, Branch CONTINUOUS , Starting 04/28/21 at 1100, Until Discontinu ed, Routine D5W-LR IV 2021-0 Yes 1000mL at 999 Univ ers infusion 9-11 mL/hr, IV ity of 1,000 mL 16:00: [place], [place] 00 CONTINUOUS Medical , Starting Branch 04/28/21 at 1100, Until Discontinu ed, Routine NaCl 0.9% 0 202- No 1000mL at 999 Uni vers (NS) bolus 04-28 mL/hr, ity of infusion 14:30: 14:25 1,000 mL, [place] 1,000 mL 00 :00 IV Medical Infusion, Branch ONCE, 1 dose, 04/28/21 at 0930, STAT metoclopram 2020-0 2021- No 10mg 10 mg, Uni vers tori HCl 04-28 Slow IV ity of (REGLAN) 14:30: 13:24 Push, [place] injection 00 :00 ONCE, 1 Medical 10 mg dose, Sat Branch 04/28/21 at 0930, RONY NaCl 0.9% 0 2020- No 1000mL at 999 Uni vers (NS) bolus 04-28 mL/hr, ity of infusion 14:30: 14:25 1,000 mL, [place] 1,000 mL 00 :00 IV Medical Infusion, Branch ONCE, 1 dose, 04/28/21 at 0930, STAT metoclopram 2020-0 202- No 10mg 10 mg, Uni vers tori HCl 04-28 Slow IV ity of (REGLAN) 14:30: 13:24 Push, [place] injection 00 :00 ONCE, 1 Medical 10 mg dose, Sat Branch 04/28/21 at 0930, RONY metoclopram 2020-0 2021- No 10mg 10 mg, Uni vers tori HCl 04-26 Slow IV ity of (REGLAN) 23:00: 22:00 [place], [place] injection 00 :00 ONCE, 1 Medical 10 mg dose, [place] Branch 04/26/21 at 1800, RONY metoclopram 2020-0 2021- No 10mg 10 mg, Uni vers tori HCl 04-26 Slow IV ity of (REGLAN) 23:00: 22:00 Push, [place] injection 00 :00 ONCE, 1 Medical 10 mg dose, [place] Branch 04/26/21 at 1800, RONY proMETHazin 2021-0 2021- No 25mg 25 mg, IV Univers e 04-26 Piggyback, ity of (PHENERGAN) 21:30: 20:44 ONCE, 1 [place] 25 mg in 00 :00 dose, [place] Medica l NaCl 0.9% 04/26/21 at Branc h (NS) 50 mL 1630, 50 piggyback mL NaCl 0.9% 2020- No 1000mL at 999 Uni vers (NS) bolus 04-26-09 mL/hr, ity of infusion 21:30: 22:50 1,000 mL, [place] 1,000 mL 00 :00 IV Medical Piggyback, Branch ONCE, 1 dose, [place] 04/26/21 at 1630, STAT proMETHazin 2020- No 25mg 25 mg, IV Univers e 04-26 Piggyback, ity of (PHENERGAN) 21:30: 20:44 ONCE, 1 [place] 25 mg in 00 :00 dose, [place] Medica l NaCl 0.9% 04/26/21 at Branc h (NS) 50 mL 1630, 50 piggyback mL NaCl 0.9% 2020- No 1000mL at 999 Uni vers (NS) bolus 04-26 mL/hr, ity of infusion 21:30: 22:50 1,000 mL, [place] 1,000 mL 00 :00 IV Medical Piggyback, Branch ONCE, 1 dose, [place] 04/26/21 at 1630, STAT Yes Take by Unive rs 25/iron 9-09 mouth. ity of fum/folic/d 15:22: [place] [address] Medical (-1 Branch ORAL) promethazin Yes Take by Un mariel e HCl 9-09 mouth. ity of (PROMETHAZI 15:22: [place] NE ORAL) Medical Branch 0 Yes Take by Unive rs 25/iron 9-09 mouth. ity of fum/folic/d 15:22: [place] [address] Medical (-1 Branch ORAL) promethazin 2020-0 Yes Take by Un mariel e HCl 9-09 mouth. ity of (PROMETHAZI 15:22: [place] NE ORAL) 42 Medical Branch 0 Yes Take by Unive rs 25/iron 9-09 mouth. ity of fum/folic/d 15:22: [place] [address] Medical (-1 Branch ORAL) promethazin 0 Yes Take by Un mariel e HCl 9-09 mouth. ity of (PROMETHAZI 15:22: [place] NE ORAL) 42 Medical Branch Yes Take by Unive rs 25/iron 9-09 mouth. ity of fum/folic/d 15:22: [facility] 42 Medical (-1 Branch ORAL) promethazin 0 Yes Take by Un mariel e HCl 9-09 mouth. ity of (PROMETHAZI 15:22: [place] NE ORAL) 42 Medical Branch Yes Take by Unive rs 25/iron 9-09 mouth. ity of fum/folic/d 15:22: [facility] 42 Medical (-1 Branch ORAL) promethazin Yes Take by Un mariel e HCl 9-09 mouth. ity of (PROMETHAZI 15:22: [place] NE ORAL) 42 Medical Branch Yes Take by Unive rs 25/iron 9-09 mouth. ity of fum/folic/d 15:22: [place] [address] Medical (-1 Branch ORAL) promethazin Yes Take by Un mariel e HCl 9-09 mouth. ity of (PROMETHAZI 15:22: [place] NE ORAL) 42 Medical Branch Yes Take by Unive rs 25/iron 9-09 mouth. ity of fum/folic/d 15:22: [place] [address] Medical (-1 Branch ORAL) promethazin Yes Take by Un mariel e HCl 9-09 mouth. ity of (PROMETHAZI 15:22: [place] NE ORAL) 42 Medical Branch Yes Take by Unive rs 25/iron 9-09 mouth. ity of fum/folic/d 15:22: [place] [address] Medical (-1 Branch ORAL) promethazin 0 Yes Take by Un mariel e HCl 9-09 mouth. ity of (PROMETHAZI 15:22: [place] NE ORAL) 42 Medical Branch doxylamine- Yes [id number] 1{tbl} Take 1 Univers pyridoxine, 9-09 tablet by ity of vit B6, 00:00: mouth [place] (MARIBETHGIS) 00 SEE-INSTRU Med ical 10-10 mg CTIONS. Branch per tablet proMETHazin Yes [id number] 25mg Insert 1 Univers e 25 mg 9-09 Suppositor ity of suppository 00:00: [place] into [place] 00 rectum Medical every 4 Branch (four) hours as needed for N/V unresponsi ve to oral antiemetic s. doxylamine- Yes [id number] 1{tbl} Take 1 Univers pyridoxine, 9- tablet by ity of vit B6, 00:00: mouth [place] (DICLEGIS) 00 SEE-INSTRU Med ical 10-10 mg CTIONS. Branch per tablet proMETHazin Yes [id number] 25mg Insert 1 Univers e 25 mg 9- Suppositor ity of suppository 00:00: y into [place] 00 rectum Medical every 4 Branch (four) hours as needed for N/V unresponsi ve to oral antiemetic s. doxylamine- Yes [id number] 1{tbl} Take 1 Univers pyridoxine, 9 tablet by ity of vit B6, 00:00: mouth [place] (DICLEGIS) 00 SEE-INSTRU Med ical 10-10 mg CTIONS. Branch per tablet proMETHazin Yes [id number] 25mg Insert 1 Univers e 25 mg 9- Suppositor ity of suppository 00:00: [place] 00 rectum Medical every 4 Branch (four) hours as needed for N/V unresponsi ve to oral antiemetic s. doxylamine- Yes [id number] 1{tbl} Take 1 Univers pyridoxine, 9 tablet by ity of vit B6, 00:00: mouth [place] (DICLEGIS) 00 SEE-INSTRU Med ical 10-10 mg CTIONS. Branch per tablet proMETHazin Yes [id number] 25mg Insert 1 Univers e 25 mg 9-09 Suppositor ity of suppository 00:00: y into [place] 00 rectum Medical every 4 Branch (four) hours as needed for N/V unresponsi ve to oral antiemetic s. doxylamine- Yes [id number] 1{tbl} Take 1 Univers pyridoxine, 9- tablet by ity of vit B6, 00:00: mouth [place] (DICLEGIS) 00 SEE-INSTRU Med ical 10-10 mg CTIONS. Branch per tablet doxylamine- Yes [id number] 1{tbl} Take 1 Univers pyridoxine, 9 tablet by ity of vit B6, 00:00: mouth [place] (DICLEGIS) 00 SEE-INSTRU Med ical 10-10 mg CTIONS. Branch per tablet doxylamine- Yes [id number] 1{tbl} Take 1 Univers pyridoxine, 9 tablet by ity of vit B6, 00:00: mouth [place] (DICLEGIS) 00 SEE-INSTRU Med ical 10-10 mg CTIONS. Branch per tablet doxylamine- Yes [id number] 1{tbl} Take 1 Univers pyridoxine, 9 tablet by ity of vit B6, 00:00: mouth [place] (DICLEGIS) 00 SEE-INSTRU Med ical 10-10 mg CTIONS. Branch per tablet proMETHazin Yes [id number] 25mg Insert 1 Univers e 25 mg 04-26 Suppositor ity of suppository 00:00: y [place] 00 rectum Medical every 4 Branch (four) hours as needed for N/V unresponsi ve to oral antiemetic s. doxylamine- Yes [id number] 1{tbl} Take 1 Univers pyridoxine, 04-26 tablet by ity of vit B6, 00:00: mouth [place] (DICLEGIS) 00 SEE-INSTRU Med ical 10-10 mg CTIONS. Branch per tablet proMETHazin Yes [id number] 25mg Insert 1 Univers e 25 mg 04-26 Suppositor ity of suppository 00:00: y into [place] 00 rectum Medical every 4 Branch (four) hours as needed for N/V unresponsi ve to oral antiemetic s. doxylamine- Yes [id number] 1{tbl} Take 1 Univers pyridoxine, 9 tablet by ity of vit B6, 00:00: mouth [place] (DICLEGIS) 00 SEE-INSTRU Med ical 10-10 mg CTIONS. Branch per tablet proMETHazin Yes [id number] 25mg Insert 1 Univers e 25 mg 9-09 Suppositor ity of suppository 00:00: y into [place] 00 rectum Medical every 4 Branch (four) hours as needed for N/V unresponsi ve to oral antiemetic s. doxylamine- Yes [id number] 1{tbl} Take 1 Univers pyridoxine, 04-26 tablet by ity of vit B6, 00:00: mouth [place] (DICLE) 00 SEE-INSTRU Med ical 10-10 mg CTIONS. Branch per tablet proMETHazin Yes [id number] 25mg Insert 1 Univers e 25 mg 04-26 Suppositor ity of suppository 00:00: y into [place] 00 rectum Medical every 4 Branch (four) hours as needed for N/V unresponsi ve to oral antiemetic s. doxylamine- Yes [id number] 1{tbl} Take 1 Univers pyridoxine, 04-26 tablet by ity of vit B6, 00:00: mouth [place] (DIC) 00 SEE-INSTRU Med ical 10-10 mg CTIONS. Branch per tablet doxylamine- Yes [id number] 1{tbl} Take 1 Univers pyridoxine, 04-26 tablet by ity of vit B6, 00:00: mouth [place] (DIC) 00 SEE-INSTRU Med ical 10-10 mg CTIONS. Branch per tablet doxylamine- Yes [id number] 1{tbl} Take 1 Univers pyridoxine, 04-26 tablet by ity of vit B6, 00:00: mouth [place] (DICLE) 00 SEE-INSTRU Med ical 10-10 mg CTIONS. Branch per tablet doxylamine- Yes [id number] 1{tbl} Take 1 Univers pyridoxine, 04-26 tablet by ity of vit B6, 00:00: mouth [place] (DICS) 00 SEE-INSTRU Med ical 10-10 mg CTIONS. Branch per tablet doxylamine- Yes [id number] 1{tbl} Take 1 Univers pyridoxine, 04-26 tablet by ity of vit B6, 00:00: mouth [place] (DICLES) 00 SEE-INSTRU Med ical 10-10 mg CTIONS. Branch per tablet doxylamine- Yes [id number] 1{tbl} Take 1 Univers pyridoxine, - tablet by ity of vit B6, 00:00: mouth [place] (DICLEGIS) 00 SEE-INSTRU Med ical 10-10 mg CTIONS. Branch per tablet doxylamine- Yes [id number] 1{tbl} Take 1 Univers pyridoxine, - tablet by ity of vit B6, 00:00: mouth [place] (DICLEGIS) 00 SEE-INSTRU Med ical 10-10 mg CTIONS. Branch per tablet proMETHazin 2020- No [id number] 25mg Insert 1 Univers e 25 mg 04-26 Suppositor ity o f suppository 00:00: 00:00 y into [place] 00 :00 rectum Medical every 4 Branch (four) hours as needed for N/V unresponsi ve to oral antiemetic s. proMETHazin 2020- No [id number] 25mg Insert 1 Univers e 25 mg 04-26 Suppositor ity o f suppository 00:00: 00:00 y into [place] 00 :00 rectum Medical every 4 Branch (four) hours as needed for N/V unresponsi ve to oral antiemetic s. lactated Yes 1000mL at 75 Univer s ringers IV 4-27 mL/hr, ity of infusion 14:00: 1,000 mL, [place] 1,000 mL 00 IV Medical Infusion, Branch CONTINUOUS , Starting Fri12/12/20 at 0900, Until Discontinu ed, Routine, PACU lactated 0 2020- No 1000mL at 75 Unive rs ringers IV 4-27 04-27 mL/hr, ity of infusion 14:00: 21:20 1,000 mL, [place] 1,000 mL 00 :21 IV Medical Infusion, Branch CONTINUOUS , Starting Fri12/12/20 at 0900, Until Fri12/12/20 at 1620, Routine, PACU HYDROmorpho Yes 2mg 2 mg, Slow Univers ne 27 IV Push, ity of (DILAUDID) 13:48: Q5MIN PRN, [place] injection 2 51 10 doses, Med ical mg Starting Branch Fri12/12/20 at 0848, Until Discontinu ed, Routine, Pain (scale 7-10), PACU
Us e approved by (Faculty): PACU USE -ANESTHESI A SERVICE-HY DROMORPHON E INJECTIONS FENTanyl PF 2020- Yes 25ug 25 mcg, Uni vers (SUBLIMAZE 12-12 Slow IV ity of (PF)) 13:48: Push, [place] injection 51 Q5MIN PRN, Medi asher 25 mcg 4 doses, Branch Starting Fri12/12/20 at 0848, Until Discontinu ed, Routine, Pain (scale 4-6), PACU ondansetron Yes 4mg 4 mg, Slow Univers (ZOFRAN 12-12 IV Push, ity of (PF)) 13:48: PRN, 1 [place] injection 4 51 dose, Medical mg Starting Branch Fri12/12/20 at 0848, Until Discontinu ed, Routine, Nausea and Vomiting (N/V), PACU HYDROmorpho 2020- No 2mg 2 mg, Slow Univers ne 12-12 IV Push, ity of (DILAUDID) 13:48: 21:20 Q5MIN PRN, [place] injection 2 51 :21 10 doses, Med ical mg Starting Branch Fri12/12/20 at 0848, Until Fri12/12/20 at 1620, Routine, Pain (scale 7-10), PACU
Us e approved by (Faculty): PACU USE -ANESTHESI A SERVICE-HY DROMORPHON E INJECTIONS FENTanyl PF 2020-2020- No 25ug 25 mcg, Un mariel (SUBLIMAZE 12-12 Slow IV ity o f (PF)) 13:48: 21:20 Push, [place] injection 51 :21 Q5MIN PRN, Medi asher 25 mcg 4 doses, Branch Starting Fri12/12/20 at 0848, Until Fri12/12/20 at 1620, Routine, Pain (scale 4-6), PACU ondansetron 2020- No 4mg 4 mg, Slow Univers (ZOFRAN 12-12 IV Push, ity of (PF)) 13:48: 21:20 PRN, 1 [place] injection 4 51 :21 dose, Medical mg Starting Branch e 12/12/20 at 0848, Until Fri12/12/20 at 1620, Routine, Nausea and Vomiting (N/V), PACU water for Yes PRN, Univers irrigation 12-12 Starting ity o f irrigation 13:14: Tue [place] solution 00 12/12/20 at Medic al 0814, Branch Until Discontinu ed, Routine, Intra-op ferric Yes PRN, Univers subsulfate 12-12 Starting ity o f (MONSEL'S 13:14: Tue [place] SOLUTION) 00 12/12/20 at Medi asher solution 0814, Branch Until Discontinu ed, Routine, Intra-op water for 2020- No PRN, Univers irrigation 12-12 Starting ity of irrigation 13:14: 21:20 Tue [place] solution 00 :12/12/20 at Medic al 0814, Branch Until Fri12/12/20 at 1620, Routine, Intra-op ferric 2020- No PRN, Univers subsulfate 12-12 Starting ity of (MONSEL'S 13:14: 21:20 Tue [place] SOLUTION) 00 :12/12/20 at Medi asher solution 0814, Branch Until Fri12/12/20 at 1620, Routine, Intra-op lactated 2020- No 1000mL at 42 Unive rs ringers IV 12-12 mL/hr, ity of infusion 12:30: 12:29 1,000 mL, [place] 1,000 mL 00 :00 IV Medical Infusion, Branch ONCE, 1 dose, Fri12/12/20 at 0730, Routine, DSU Pre-op lactated 2020- No 1000mL at 42 Unive rs ringers IV 12-12 mL/hr, ity of infusion 12:30: 12:29 1,000 mL, [place] 1,000 mL 00 :00 IV Medical Infusion, Branch ONCE, 1 dose, Fri12/12/20 at 0730, Routine, DSU Pre-op doxycycline Yes 100mg Unive rs hyclate 12-12 ity of (Vibramycin 05:00: [place] ) capsule 00 Medical 100 mg Branch doxycycline 2020-0 Yes 100mg Unive rs hyclate 4-27 ity of (Vibramycin 05:00: [place] ) capsule 00 Medical 100 mg Branch doxycycline 2020-0 Yes 100mg Unive rs hyclate 4-27 ity of (Vibramycin 05:00: [place] ) capsule 00 Medical 100 mg Branch acetaminoph 2020-0 Yes [id number] 650mg Take 2 Univers en 4-27 tablets by ity of (TYLENOL) 00:00: mouth [place] 325 mg 00 every 6 Medical tablet (six) Branch hours as needed for Pain (scale 1-3) or Pain (scale 4-6). ibuprofen Yes [id number] 600mg Take 1 Univers 600 mg 4-27 tablet by ity of tablet 00:00: mouth [place] 00 every 6 Medical (six) Branch hours as needed for Pain (scale 1-3) or Pain (scale 4-6). acetaminoph Yes [id number] 650mg Take 2 Univers en 4-27 tablets by ity of (TYLENOL) 00:00: mouth [place] 325 mg 00 every 6 Medical tablet (six) Branch hours as needed for Pain (scale 1-3) or Pain (scale 4-6). ibuprofen Yes [id number] 600mg Take 1 Univers 600 mg 4-27 tablet by ity of tablet 00:00: mouth [place] 00 every 6 Medical (six) Branch hours as needed for Pain (scale 1-3) or Pain (scale 4-6). acetaminoph 2020-0 Yes [id number] 650mg Take 2 Univers en 4-27 tablets by ity of (TYLENOL) 00:00: mouth [place] 325 mg 00 every 6 Medical tablet (six) Branch hours as needed for Pain (scale 1-3) or Pain (scale 4-6). ibuprofen 2020-0 Yes [id number] 600mg Take 1 Univers 600 mg 4-27 tablet by ity of tablet 00:00: mouth [place] 00 every 6 Medical (six) Branch hours as needed for Pain (scale 1-3) or Pain (scale 4-6). acetaminoph 2020-0 Yes [id number] 650mg Take 2 Univers en 4-27 tablets by ity of (TYLENOL) 00:00: mouth [place] 325 mg 00 every 6 Medical tablet (six) Branch hours as needed for Pain (scale 1-3) or Pain (scale 4-6). ibuprofen Yes [id number] 600mg Take 1 Univers 600 mg 4-27 tablet by ity of tablet 00:00: mouth [place] 00 every 6 Medical (six) Branch hours as needed for Pain (scale 1-3) or Pain (scale 4-6). acetaminoph Yes [id number] 650mg Take 2 Univers en 4-27 tablets by ity of (TYLENOL) 00:00: mouth [place] 325 mg 00 every 6 Medical tablet (six) Branch hours as needed for Pain (scale 1-3) or Pain (scale 4-6). ibuprofen Yes [id number] 600mg Take 1 Univers 600 mg 4-27 tablet by ity of tablet 00:00: mouth [place] 00 every 6 Medical (six) Branch hours as needed for Pain (scale 1-3) or Pain (scale 4-6). acetaminoph Yes [id number] 650mg Take 2 Univers en 4-27 tablets by ity of (TYLENOL) 00:00: mouth [place] 325 mg 00 every 6 Medical tablet (six) Branch hours as needed for Pain (scale 1-3) or Pain (scale 4-6). ibuprofen Yes [id number] 600mg Take 1 [facility] 600 mg 4-27 tablet by [facility] of tablet 00:00: mouth [place] 00 every 6 Medical (six) Branch hours as needed for Pain (scale 1-3) or Pain (scale 4-6). acetaminoph Yes [id number] 650mg Take 2 [facility] en 4-27 tablets by ity of (TYLENOL) 00:00: mouth [place] 325 mg 00 every 6 Medical tablet (six) Branch hours as needed for Pain (scale 1-3) or Pain (scale 4-6). ibuprofen 0 Yes [id number] 600mg Take 1 [facility] 600 mg 4-27 tablet by ity of tablet 00:00: mouth [place] 00 every 6 Medical (six) Branch hours as needed for Pain (scale 1-3) or Pain (scale 4-6). acetaminoph 2020-0 Yes [id number] 650mg Take 2 [facility] en 4-27 tablets by ity of (TYLENOL) 00:00: mouth [place] 325 mg 00 every 6 Medical tablet (six) Branch hours as needed for Pain (scale 1-3) or Pain (scale 4-6). ibuprofen Yes [id number] 600mg Take 1 [facility] 600 mg 4-27 tablet by ity of tablet 00:00: mouth [place] 00 every 6 Medical (six) Branch hours as needed for Pain (scale 1-3) or Pain (scale 4-6). acetaminoph Yes [id number] 650mg Take 2 [facility] en 4-27 tablets by ity of (TYLENOL) 00:00: mouth [place] 325 mg 00 every 6 Medical tablet (six) Branch hours as needed for Pain (scale 1-3) or Pain (scale 4-6). ibuprofen Yes [id number] 600mg Take 1 [facility] 600 mg 4-27 tablet by ity of tablet 00:00: mouth [place] 00 every 6 Medical (six) Branch hours as needed for Pain (scale 1-3) or Pain (scale 4-6). acetaminoph Yes [id number] 650mg Take 2 [facility] en 4-27 tablets by ity of (TYLENOL) 00:00: mouth [place] 325 mg 00 every 6 Medical tablet (six) Branch hours as needed for Pain (scale 1-3) or Pain (scale 4-6). ibuprofen Yes [id number] 600mg Take 1 [facility] 600 mg 4-27 tablet by ity of tablet 00:00: mouth [place] 00 every 6 Medical (six) Branch hours as needed for Pain (scale 1-3) or Pain (scale 4-6). acetaminoph Yes [id number] 650mg Take 2 [facility] en 4-27 tablets by ity of (TYLENOL) 00:00: mouth [place] 325 mg 00 every 6 Medical tablet (six) Branch hours as needed for Pain (scale 1-3) or Pain (scale 4-6). ibuprofen 0 Yes [id number] 600mg Take 1 [facility] 600 mg 4-27 tablet by ity of tablet 00:00: mouth [place] 00 every 6 Medical (six) Branch hours as needed for Pain (scale 1-3) or Pain (scale 4-6). acetaminoph 2020-0 Yes [id number] 650mg Take 2 [facility] en 4-27 tablets by ity of (TYLENOL) 00:00: mouth [place] 325 mg 00 every 6 Medical tablet (six) Branch hours as needed for Pain (scale 1-3) or Pain (scale 4-6). ibuprofen Yes [id number] 600mg Take 1 [facility] 600 mg 4-27 tablet by ity of tablet 00:00: mouth [place] 00 every 6 Medical (six) Branch hours as needed for Pain (scale 1-3) or Pain (scale 4-6). acetaminoph Yes [id number] 650mg Take 2 [facility] en 4-27 tablets by ity of (TYLENOL) 00:00: mouth [place] 325 mg 00 every 6 Medical tablet (six) Branch hours as needed for Pain (scale 1-3) or Pain (scale 4-6). ibuprofen Yes [id number] 600mg Take 1 [facility] 600 mg 4-27 tablet by ity of tablet 00:00: mouth [place] 00 every 6 Medical (six) Branch hours as needed for Pain (scale 1-3) or Pain (scale 4-6). acetaminoph Yes [id number] 650mg Take 2 [facility] en 4-27 tablets by ity of (TYLENOL) 00:00: mouth [place] 325 mg 00 every 6 Medical tablet (six) Branch hours as needed for Pain (scale 1-3) or Pain (scale 4-6). ibuprofen Yes [id number] 600mg Take 1 [facility] 600 mg 4-27 tablet by ity of tablet 00:00: mouth [place] 00 every 6 Medical (six) Branch hours as needed for Pain (scale 1-3) or Pain (scale 4-6). acetaminoph Yes [id number] 650mg Take 2 [facility] en 4-27 tablets by ity of (TYLENOL) 00:00: mouth [place] 325 mg 00 every 6 Medical tablet (six) Branch hours as needed for Pain (scale 1-3) or Pain (scale 4-6). ibuprofen Yes [id number] 600mg Take 1 [facility] 600 mg 4-27 tablet by ity of tablet 00:00: mouth [place] 00 every 6 Medical (six) Branch hours as needed for Pain (scale 1-3) or Pain (scale 4-6). acetaminoph 2020-0 202- No [id number] 650mg Take 2 [facility] en 4-27 09-09 tablets by ity of (TYLENOL) 00:00: 00:00 mouth [place] 325 mg 00 :00 every 6 Medical tablet (six) Branch hours as needed for Pain (scale 1-3) or Pain (scale 4-6). ibuprofen 2020- No [id number] 600mg Take 1 [facility] 600 mg 12-12 tablet by ity of tablet 00:00: 00:00 mouth [place] 00 :00 every 6 Medical (six) Branch hours as needed for Pain (scale 1-3) or Pain (scale 4-6). acetaminoph 2020- No [id number] 650mg Take 2 [facility] en 12-12 tablets by ity of (TYLENOL) 00:00: 00:00 mouth [place] 325 mg 00 :00 every 6 Medical tablet (six) Branch hours as needed for Pain (scale 1-3) or Pain (scale 4-6). ibuprofen 2020- No [id number] 600mg Take 1 [facility] 600 mg 12-12 tablet by ity of tablet 00:00: 00:00 mouth [place] 00 :00 every 6 Medical (six) Branch hours as needed for Pain (scale 1-3) or Pain (scale 4-6). doxycycline 2020- No [id number] 200mg Take 2 [facility] hyclate 100 12-12-28 capsules ity of mg capsule 00:00: 04:59 by mouth [place] 00 :00 once now Medical for 1 Branch dose. doxycycline 2020- No [id number] 200mg Take 2 [facility] hyclate 100 12-12-28 capsules ity of mg capsule 00:00: 04:59 by mouth [place] 00 :00 once now Medical for 1 Branch dose. 2020- No Take by [facility] [employer] vit 4-20 04-20 mouth. ity of calc,iron,f 14:12: 00:00 [place] olic 27 :00 Medical ( Branch VITAMIN ORAL) 2020- No Take by [facility] [employer] vit 4-20 04-20 mouth. ity of calc,iron,f 14:12: 00:00 [place] olic 27 :00 Medical ( Branch VITAMIN ORAL) 2020- No Take by [facility] [employer] vit 4-20 04-20 mouth. ity of calc,iron,f 14:12: 00:00 [place] olic 27 :00 Medical ( Branch VITAMIN ORAL) metoclopram 0 Yes TAKE 2 [facility] ers tori HCl 5 4-09 TABLETS BY ity of mg tablet 00:00: MOUTH 4 00 TIMES A Medical DAY Branch metoclopram 2020-0 Yes TAKE 2 [facility] ers [place]i HCl 5 4-09 TABLETS BY ity of mg tablet 00:00: MOUTH 4 00 TIMES A Medical DAY Branch metoclopram 2020-0 Yes TAKE 2 [facility] ers [place] HCl 5 4-09 TABLETS BY ity of mg tablet 00:00: MOUTH 4 00 TIMES A Medical DAY Branch metoclopram 2020-0 Yes TAKE 2 [facility] ers [place] HCl 5 4-09 TABLETS BY ity of mg tablet 00:00: MOUTH 4 00 TIMES A Medical DAY Branch metoclopram 2020- Yes TAKE 2 [facility] ers [place] HCl 5 4-09 TABLETS BY ity of mg tablet 00:00: MOUTH 4 00 TIMES A Medical DAY Branch metoclopram Yes TAKE 2 [facility] ers [place]i HCl 5 4-09 TABLETS BY ity of mg tablet 00:00: MOUTH 4 00 TIMES A Medical DAY Branch metoclopram 2020-0 202- No TAKE 2 [facility] vers [place]i HCl 5 4-09 04-27 TABLETS BY ity of mg tablet 00:00: 00:00 [place] :[place] TIMES A Medical DAY Branch metoclopram 2020-0 2020- No TAKE 2 [facility] vers tori HCl 5 4-09 04-27 TABLETS BY ity of mg tablet 00:00: 00:00 M[place]TH 4 [place] 00 :[place] TIMES A Medical DAY Branch proMETHazin Yes 25mg Take 1 [facility] ers e 25 mg 4-07 tablet by ity of tablet 00:00: mouth [place] 00 every 6 Medical (six) Branch hours as needed for Nausea and Vomiting (N/V). Must be taken at least 6 hours after last promethazi ne suppositor y. proMETHazin Yes 25mg Insert 1 [facility] mariel e 25 mg 4-07 Suppositor it[facility] of suppository 00:00: y [place] 00 rectum Medical every 6 Branch (six) hours as needed for Nausea and Vomiting (N/V). Must be taken at least 6 hours from last dose of promethazi ne tablet. proMETHazin 2021-0 Yes 25mg Take 1 [facility] ers e 25 mg 4-07 tablet by ity of tablet 00:00: mouth [place] 00 every 6 Medical (six) Branch hours as needed for Nausea and Vomiting (N/V). Must be taken at least 6 hours after last promethazi ne suppositor y. proMETHazin 2021-0 Yes 25mg Insert 1 Un mariel e 25 mg 4-07 Suppositor ity of suppository 00:00: y [place] 00 rectum Medical every 6 Branch (six) hours as needed for Nausea and Vomiting (N/V). Must be taken at least 6 hours from last dose of promethazi ne tablet. proMETHazin 2021-0 Yes 25mg Take 1 [facility] ers e 25 mg 4-07 tablet by ity of tablet 00:00: mouth [place] 00 every 6 Medical (six) Branch hours as needed for Nausea and Vomiting (N/V). Must be taken at least 6 hours after last promethazi ne suppositor y. proMETHazin 2021-0 Yes 25mg Insert 1 Un mariel e 25 mg 4-07 Suppositor ity of suppository 00:00: y [place] 00 rectum Medical every 6 Branch (six) hours as needed for Nausea and Vomiting (N/V). Must be taken at least 6 hours from last dose of promethazi ne tablet. proMETHazin 2021-0 Yes 25mg Take 1 [facility] ers e 25 mg 4-07 tablet by ity of tablet 00:00: mouth [place] 00 every 6 Medical (six) Branch hours as needed for Nausea and Vomiting (N/V). Must be taken at least 6 hours after last promethazi ne suppositor y. proMETHazin 2021-0 Yes 25mg Insert 1 Un mariel e 25 mg 4-07 Suppositor ity of suppository 00:00: y into [place] 00 rectum Medical every 6 Branch (six) hours as needed for Nausea and Vomiting (N/V). Must be taken at least 6 hours from last dose of promethazi ne tablet. proMETHazin 2021-0 Yes 25mg Take 1 [facility] ers e 25 mg 4-07 tablet by ity of tablet 00:00: mouth [place] 00 every 6 Medical (six) Branch hours as needed for Nausea and Vomiting (N/V). Must be taken at least 6 hours after last promethazi ne suppositor y. proMETHazin Yes 25mg Insert 1 Un mariel e 25 mg 4-07 Suppositor ity of suppository 00:00: y [place] 00 rectum Medical every 6 Branch (six) hours as needed for Nausea and Vomiting (N/V). Must be taken at least 6 hours from last dose of promethazi ne tablet. proMETHazin 2020- No 25mg Take 1 [facility] vers e 25 mg 4-07 04-20 tablet by ity of tablet 00:00: 00:00 mouth [place] 00 :00 every 6 Medical (six) Branch hours as needed for Nausea and Vomiting (N/V). Must be taken at least 6 hours after last promethazi ne suppositor y. proMETHazin 2020- No 25mg Insert 1 U nivers e 25 mg 4-07 04-20 Suppositor ity o f suppository 00:00: 00:00 y into [place] 00 :00 rectum Medical every 6 Branch (six) hours as needed for Nausea and Vomiting (N/V). Must be taken at least 6 hours from last dose of promethazi ne tablet. proMETHazin 2020- No 25mg Take 1 [facility] vers e 25 mg 4-07 04-20 tablet by ity of tablet 00:00: 00:00 mouth [place] 00 :00 every 6 Medical (six) Branch hours as needed for Nausea and Vomiting (N/V). Must be taken at least 6 hours after last promethazi ne suppositor y. proMETHazin 2020- No 25mg Insert 1 U nivers e 25 mg 4-07 04-20 Suppositor ity o f suppository 00:00: 00:00 y into [place] 00 :00 rectum Medical every 6 Branch (six) hours as needed for Nausea and Vomiting (N/V). Must be taken at least 6 hours from last dose of promethazi ne tablet. proMETHazin 2020- No 25mg Take 1 [facility] vers e 25 mg 4-07 04-20 tablet by ity of tablet 00:00: 00:00 mouth [place] 00 :00 every 6 Medical (six) Branch hours as needed for Nausea and Vomiting (N/V). Must be taken at least 6 hours after last promethazi ne suppositor y. proMETHazin No 25mg Insert 1 U nivers e 25 mg 11-22 04-20 Suppositor ity o f suppository 00:00: 00:00 y into [place] 00 :00 rectum Medical every 6 Branch (six) hours as needed for Nausea and Vomiting (N/V). Must be taken at least 6 hours from last dose of promethazi ne tablet. Yes Take by [facility] vit 3-30 mouth. ity of calc,iron,f 15:49: [address] ( Branch VITAMIN ORAL) Yes Take by [facility] vit 3-30 mouth. ity of calc,iron,f 15:49: [address] ( Branch VITAMIN ORAL) Yes Take by [facility] vit 3-30 mouth. ity of calc,iron,f 15:49: [address] ( Branch VITAMIN ORAL) Yes Take by [facility] vit 3-30 mouth. ity of calc,iron,f 15:49: [address] ( Branch VITAMIN ORAL) Yes Take by [facility] vit 3-30 mouth. ity of calc,iron,f 15:49: [address] ( Branch VITAMIN ORAL) Yes Take by [facility] vit 3-30 mouth. ity of calc,iron,f 15:49: [place] [address] Medical ( Branch VITAMIN ORAL) Yes Take by [facility] vit 3-30 mouth. ity of calc,iron,f 15:49: [place] [address] Medical ( Branch VITAMIN ORAL) Yes Take by [facility] vit 3-30 mouth. ity of calc,iron,f 15:49: [place] [address] Medical ( Branch VITAMIN ORAL) Yes Take by [facility] vit 3-30 mouth. ity of calc,iron,f 15:49: [place] [address] Medical ( Branch VITAMIN ORAL) Yes Take by [facility] rs vit 3-30 mouth. ity of calc,iron,f 15:49: [place] [address] Medical ( Branch VITAMIN ORAL) Yes Take by [facility]ive rs vit 3-30 mouth. ity of calc,iron,f 15:49: [place] [address] Medical ( Branch VITAMIN ORAL) Yes Take by [facility]ive rs vit 3-30 mouth. ity of calc,iron,f 15:49: [place] [address] Medical ( Branch VITAMIN ORAL) Yes Take by Unive rs vit 3-30 mouth. ity of calc,iron,f 15:49: [place] [address] Medical ( Branch VITAMIN ORAL) PNV Yes [id number] Take 1 [facility] 102-iron-fo 3-30 TAB-CAP/M2 it y of late-dha 00:00: by mouth [place] (VITAFOL FE 00 daily. Medica l PLUS) 90 mg Branch iron- 1 mg-200 mg Cap PNV Yes [id number] Take 1 [facility] 102-iron-fo 3-30 TAB-CAP/M2 it y of late-dha 00:00: by mouth [place] (VITAFOL FE 00 daily. Medica l PLUS) 90 mg Branch iron- 1 mg-200 mg Cap PNV Yes [id number] Take 1 [facility] 102-iron-fo 3-30 TAB-CAP/M2 it y of late-dha 00:00: by mouth [place] (VITAFOL FE 00 daily. Medica l PLUS) 90 mg Branch iron- 1 mg-200 mg Cap PNV Yes [id number] Take 1 [facility] 102-iron-fo 3-30 TAB-CAP/M2 it y of late-dha 00:00: by mouth [place] (VITAFOL FE 00 daily. Medica l PLUS) 90 mg Branch iron- 1 mg-200 mg Cap PNV Yes [id number] Take 1 [facility] 102-iron-fo 3-30 TAB-CAP/M2 it y of late-dha 00:00: by mouth [place] (VITAFOL FE 00 daily. Medica l PLUS) 90 mg Branch iron- 1 mg-200 mg Cap PNV Yes [id number] Take 1 [facility] 102-iron-fo 3-30 TAB-CAP/M2 it y of late-dha 00:00: by mouth [place] (VITAFOL FE 00 daily. Medica l PLUS) 90 mg Branch iron- 1 mg-200 mg Cap PNV 2020-0 Yes [id number] Take 1 [facility] 102-iron-fo 3-30 TAB-CAP/M2 it y of late-dha 00:00: by mouth [place] (VITAFOL FE 00 daily. Medica l PLUS) 90 mg Branch iron- 1 mg-200 mg Cap PNV 2020-0 Yes [id number] Take 1 [facility] 102-iron-fo 3-30 TAB-CAP/M2 it y of late-dha 00:00: by mouth [place] (VITAFOL FE 00 daily. Medica l PLUS) 90 mg Branch iron- 1 mg-200 mg Cap PNV 2020-0 Yes [id number] Take 1 [facility] 102-iron-fo 3-30 TAB-CAP/M2 it y of late-dha 00:00: by mouth [place] (VITAFOL FE 00 daily. Medica l PLUS) 90 mg Branch iron- 1 mg-200 mg Cap PNV 2020-0 Yes [id number] Take 1 [facility] 102-iron-fo 3-30 TAB-CAP/M2 it y of late-dha 00:00: by mouth [place] (VITAFOL FE 00 daily. Medica l PLUS) 90 mg Branch iron- 1 mg-200 mg Cap PNV 2020-0 Yes [id number] Take 1 [facility] 102-iron-fo 3-30 TAB-CAP/M2 it y of late-dha 00:00: by mouth [place] (VITAFOL FE 00 daily. Medica l PLUS) 90 mg Branch iron- 1 mg-200 mg Cap PNV 2020-0 Yes [id number] Take 1 [facility] 102-iron-fo 3-30 TAB-CAP/M2 it y of late-dha 00:00: by mouth [place] (VITAFOL FE 00 daily. Medica l PLUS) 90 mg Branch iron- 1 mg-200 mg Cap PNV 2020-0 2020- No [id number] Take 1 Univer s 102-iron-fo 3-30 04-20 TAB-CAP/M2 i ty of late-dha 00:00: 00:00 by mouth [place] (VITAFOL FE 00 :00 daily. Medica l PLUS) 90 mg Branch iron- 1 mg-200 mg Cap PNV 2020-0 2020- No [id number] Take 1 Univer s 102-iron-fo -30 04-20 TAB-CAP/M2 i ty of late-dha 00:00: 00:00 by mouth [place] (VITAFOL FE 00 :00 daily. Medica l PLUS) 90 mg Branch iron- 1 mg-200 mg Cap PNV 2020- No [id number] Take 1 Univer s 102-iron-fo -30 04-20 TAB-CAP/M2 i ty of late-dha 00:00: 00:00 by mouth [place] (VITAFOL FE 00 :00 daily. Medica l PLUS) 90 mg Branch iron- 1 mg-200 mg Cap tetanus-dip 2020- No .5mL 0.5 mL, Un mariel htheria 05-15 Intramuscu ity o f toxoids 15:45: 15:45 lar, ONCE, [place] (TENIVAC) 00 :00 1 dose, Medical 5-2 Lf Mon Branch unit/0.5 mL 05/15/20 at injection 1100, 0.5 mL Routine cephALEXin 0 Yes [id number] 500mg Take 1 [facility] (KEFLEX) 05-15 9102 capsule by ity o f 500 mg 00:00: mouth 3 [place] capsule 00 (three) Medical times Branch daily. acetaminoph 2019-0 Yes [id number] 1{tbl} Take 1-2 [facility] en-codeine 9-28 tablets by ity of 300-30 mg 00:00: mouth [place] tablet 00 every 6 Medical (six) Branch hours as needed for Pain (scale 4-6). Indication s: acute pain cephALEXin 0 Yes [id number] 500mg Take 1 [facility] (KEFLEX) 05-15 9102 capsule by ity o f 500 mg 00:00: mouth 3 [place] capsule 00 (three) Medical times Branch daily. acetaminoph 2020-0 Yes [id number] 1{tbl} Take 1-2 [facility] en-codeine 9-28 tablets by ity of 300-30 mg 00:00: mouth [place] tablet 00 every 6 Medical (six) Branch hours as needed for Pain (scale 4-6). Indication s: acute pain cephALEXin 2020- No [id number] 500mg Take 1 [facility] (KEFLEX) 05-15 9102 capsule by ity of 500 mg 00:00: 00:00 mouth 3 [place] capsule 00 :00 (three) Medical times Branch daily. acetaminoph 2020- No [id number] 1{tbl} Take 1-2 [facility] en-codeine 05-15-30 tablets by it y of 300-30 mg 00:00: 00:00 mouth [place] tablet 00 :00 every 6 Medical (six) Branch hours as needed for Pain (scale 4-6). Indication s: acute pain cephALEXin 2020- No [id number] 500mg Take 1 [facility] (KEFLEX) 05-15- 9102 capsule by ity of 500 mg 00:00: 00:00 mouth 3 [place] capsule 00 :00 (three) Medical times Branch daily. acetaminoph 2020- No [id number] 1{tbl} Take 1-2 [facility] en-codeine 05-15-30 tablets by it y of 300-30 mg 00:00: 00:00 mouth [place] tablet 00 :00 every 6 Medical (six) Branch hours as needed for Pain (scale 4-6). Indication s: acute pain naproxen 2018-08 Yes TAKE 1 [facility] (NAPROSYN) 0-[address] 500 MG 00:00: [facility] TWICE A l DAY WITH MEALS SPRINTEC, Yes 1{tbl} QD Take 1 [facility] [place] 28, 0.25-35 7-[address] mg-mcg per 00:00: mouth once [facility] tablet 00 daily. l naproxen Yes 550mg Take 1 Univer s sodium 6-03 tablet by ity of (ANAPROX) 00:00: mouth 2 [place] 550 mg 00 (two) Medical tablet times Branch daily with meals. cyclobenzap Yes 5mg Take 1 Univ ers rine 6-03 tablet by ity of (FLEXERIL) 00:00: mouth at [place] 5 mg tablet 00 bedtime as Me dical needed for Branch Muscle Spasms. acetaminoph Yes 1{tbl} Take 1 Un mariel en-codeine 6-03 tablet by ity of (TYLENOL-CO 00:00: mouth [place] DEINE #3) 00 every 6 Medical 300-30 mg (six) Branch tablet hours as needed for Pain (scale 7-10) or Pain unrelieved by non-narcot ic analgesics . naproxen Yes 550mg Take 1 Univer s sodium 6-03 tablet by ity of (ANAPROX) 00:00: mouth 2 [place] 550 mg 00 (two) Medical tablet times Branch daily with meals. cyclobenzap Yes 5mg Take 1 Univ ers rine 6-03 tablet by ity of (FLEXERIL) 00:00: mouth at [place] 5 mg tablet 00 bedtime as Me dical needed for Branch Muscle Spasms. acetaminoph Yes 1{tbl} Take 1 Un mariel en-codeine 6-03 tablet by ity of (TYLENOL-CO 00:00: mouth [place] DEINE #3) 00 every 6 Medical 300-30 mg (six) Branch tablet hours as needed for Pain (scale 7-10) or Pain unrelieved by non-narcot ic analgesics . naproxen 2020- No 550mg Take 1 Unive rs sodium 6-03 03-30 tablet by ity of (ANAPROX) 00:00: 00:00 mouth 2 [place] 550 mg 00 :00 (two) Medical tablet times Branch daily with meals. cyclobenzap 2020- No 5mg Take 1 Uni vers rine 6-03 03-30 tablet by ity of (FLEXERIL) 00:00: 00:00 [place] 5 mg tablet 00 :00 bedtime as Me dical needed for Branch Muscle Spasms. acetaminoph 2020- No 1{tbl} Take 1 U nivers en-codeine 6-03 03-30 tablet by ity of (TYLENOL-CO 00:00: 00:00 mouth [place] DEINE #3) 00 :00 every 6 Medical 300-30 mg (six) Branch tablet hours as needed for Pain (scale 7-10) or Pain unrelieved by non-narcot ic analgesics . naproxen 2020- No 550mg Take 1 Unive rs sodium 6-03 03-30 tablet by ity of (ANAPROX) 00:00: 00:00 mouth 2 [place] 550 mg 00 :00 (two) Medical tablet times Branch daily with meals. cyclobenzap 2020- No 5mg Take 1 Uni vers rine 6-03 03-30 tablet by ity of (FLEXERIL) 00:00: 00:00 [place] 5 mg tablet 00 :00 bedtime as Me dical needed for Branch Muscle Spasms. acetaminoph 2020- No 1{tbl} Take 1 U nivers en-codeine 01-18 tablet by ity of (TYLENOL-CO 00:00: 00:00 mouth [place] DEINE #3) 00 :00 every 6 Medical 300-30 mg (six) Branch tablet hours as needed for Pain (scale 7-10) or Pain unrelieved by non-narcot ic analgesics . No known [facility] Immunizations Ordered Filled Immunization Date Status Comments [facility] e Immunization Name Name Wigix COVID-19 2021-01-17 Completed [facility] VACCINATION 00:00:00 [facility] PFIZER COVID-19 2020-12-27 Completed [facility] MRNA VACCINATION 00:00:00 [facility] Influenza Virus 2020-11-14 Completed Universit y of Vaccine Quad .5 mL 00:00:00 [facility] IM 6+ MO Branch Influenza Virus 2020-11-14 Completed Universit y of Vaccine Quad .5 mL 00:00:00 [place] [facility] 6+ MO Branch Influenza Virus 2020-11-14 Completed Universit y of Vaccine Quad .5 mL 00:00:00 [place] [facility] 6+ MO Branch Influenza Virus 2020-11-14 Completed Universit y of Vaccine Quad .5 mL 00:00:00 [place] [facility] IM 6+ MO Branch Influenza Virus 2020-11-14 Completed Universit y of Vaccine Quad .5 mL 00:00:00 [place] [facility] IM 6+ MO Branch Influenza Virus 2020-11-14 Completed Universit y of Vaccine Quad .5 mL 00:00:00 [place] [facility] IM 6+ MO Branch Influenza Virus 2020-11-14 Completed Universit y of Vaccine Quad .5 mL 00:00:00 [place] [facility] IM 6+ MO Branch Influenza Virus 2020-11-14 Completed Universit y of Vaccine Quad .5 mL 00:00:00 [place] [facility] IM 6+ MO Branch Influenza Virus 2020-11-14 Completed Universit y of Vaccine Quad .5 mL 00:00:00 [place] [facility] IM 6+ MO Branch Influenza Virus 2020-11-14 Completed Universit y of Vaccine Quad .5 mL 00:00:00 [place] [facility] IM 6+ MO Branch Influenza Virus 2020-11-14 Completed Universit y of Vaccine Quad .5 mL 00:00:00 [place] [facility] IM 6+ MO Branch Influenza Virus 2020-11-14 Completed Universit y of Vaccine Quad .5 mL 00:00:00 [place] [facility] IM 6+ MO Branch Influenza Virus 2020-11-14 Completed Universit y of Vaccine Quad .5 mL 00:00:00 [place] [facility] IM 6+ MO Branch Influenza Virus 2020-11-14 Completed Universit y of Vaccine Quad .5 mL 00:00:00 [place] [facility] IM 6+ MO Branch Influenza Virus 2020-11-14 Completed Universit y of Vaccine Quad .5 mL 00:00:00 [place] [facility] IM 6+ MO Branch Influenza Virus 2020-11-14 Completed Universit y of Vaccine Quad .5 mL 00:00:00 [place] [facility] IM 6+ MO Branch Influenza Virus 2020-11-14 Completed Universit y of Vaccine Quad .5 mL 00:00:00 [place] [facility] IM 6+ MO Branch Influenza Virus 2020-11-14 Completed Universit y of Vaccine Quad .5 mL 00:00:00 [place] [facility] IM 6+ MO Branch Influenza Virus 2020-11-14 Completed Universit y of Vaccine Quad .5 mL 00:00:00 [place] [facility] IM 6+ MO Branch Influenza Virus 2020-11-14 Completed Universit y of Vaccine Quad .5 mL 00:00:00 [place] [facility] IM 6+ MO Branch Influenza Virus 2020-11-14 Completed Universit y of Vaccine Quad .5 mL 00:00:00 [place] [facility] IM 6+ MO Branch Influenza Virus 2020-11-14 Completed Universit y of Vaccine Quad .5 mL 00:00:00 [place] [facility] IM 6+ MO Branch Influenza Virus 2020-11-14 Completed Universit y of Vaccine Quad .5 mL 00:00:00 [place] [facility] IM 6+ MO Branch Influenza Virus 2020-11-14 Completed Universit y of Vaccine Quad .5 mL 00:00:00 [place] [facility] IM 6+ MO Branch Influenza Virus 2020-11-14 Completed Universit y of Vaccine Quad .5 mL 00:00:00 [place] [facility] IM 6+ MO Branch Influenza Virus 2020-11-14 Completed Universit y of Vaccine Quad .5 mL 00:00:00 [place] [facility] IM 6+ MO Branch Influenza Virus 2020-11-14 Completed Universit y of Vaccine Quad .5 mL 00:00:00 [place] [facility] IM 6+ MO Branch Influenza Virus 2020-11-14 Completed Universit y of Vaccine Quad .5 mL 00:00:00 [place] [facility] IM 6+ MO Branch Influenza Virus 2020-11-14 Completed Universit y of Vaccine Quad .5 mL 00:00:00 [place] [facility] IM 6+ MO Branch Influenza Virus 2020-11-14 Completed Universit y of Vaccine Quad .5 mL 00:00:00 [place] [facility] IM 6+ MO Branch Influenza Virus 2020-11-14 Completed Universit y of Vaccine Quad .5 mL 00:00:00 [place] [facility] IM 6+ MO Branch Influenza Virus 2020-11-14 Completed Universit y of Vaccine Quad .5 mL 00:00:00 [place] [facility] IM 6+ MO Branch Influenza Virus 2020-11-14 Completed Universit y of Vaccine Quad .5 mL 00:00:00 [place] [facility] IM 6+ MO Branch Influenza Virus 2020-11-14 Completed Universit y of Vaccine Quad .5 mL 00:00:00 [place] [facility] IM 6+ MO Branch Influenza Virus 2020-11-14 Completed Universit y of Vaccine Quad .5 mL 00:00:00 [place] [facility] IM 6+ MO Branch Influenza Virus 2020-11-14 Completed Universit y of Vaccine Quad .5 mL 00:00:00 [place] [facility] IM 6+ MO Branch Influenza Virus 2020-11-14 Completed Universit y of Vaccine Quad .5 mL 00:00:00 [place] [facility] IM 6+ MO Branch Influenza Virus 2020-11-14 Completed Universit y of Vaccine Quad .5 mL 00:00:00 [place] [facility] IM 6+ MO Branch Influenza Virus 2020-11-14 Completed [facility] .5 mL 00:00:00 [facility] Influenza Virus 2020-11-14 Completed [facility] .5 mL 00:00:00 [facility] Influenza Virus 2020-11-14 Completed [facility] .5 mL 00:00:00 [facility] Influenza Virus 2020-11-14 Completed [facility] .5 mL 00:00:00 [facility] Influenza Virus 2020-11-14 Completed [facility] .5 mL 00:00:00 [facility] Influenza Virus 2020-11-14 Completed [facility] .5 mL 00:00:00 [facility] Influenza Virus 2020-11-14 Completed [facility] .5 mL 00:00:00 [facility] Influenza Virus 2020-11-14 Completed [facility] .5 mL 00:00:00 [facility] Influenza Virus 2020-11-14 Completed [facility] .5 mL 00:00:00 [facility] Influenza Virus 2020-11-14 Completed [facility] .5 mL 00:00:00 [facility] Influenza Virus 2020-11-14 Completed [facility] .5 mL 00:00:00 [facility] Influenza Virus 2020-11-14 Completed [facility] .5 mL 00:00:00 [facility] Influenza Virus 2020-11-14 Completed [facility] .5 mL 00:00:00 [facility] Influenza Virus 2020-11-14 Completed [facility] .5 mL 00:00:00 [facility] Influenza Virus 2020-11-14 Completed [facility] .5 mL 00:00:00 [facility] [place] [facility] Td 2020-05-15 Completed [facility] 00:00:00 [facility] [place] [facility] Td 2020-05-15 Completed [facility] 00:00:00 [facility] Td 2020-05-15 Completed [facility] 00:00:00 [facility] Td 2020-05-15 Completed [facility] 00:00:00 [facility] Td 2020-05-15 Completed [facility] of 00:00:00 [facility] Td 2020-05-15 Completed [facility] of 00:00:00 [facility] Td 2020-05-15 Completed [facility] 00:00:00 [facility] Td 2020-05-15 Completed [facility] 00:00:00 [facility] Td 2020-05-15 Completed [facility] 00:00:00 [facility] Td 2020-05-15 Completed [facility] 00:00:00 [facility] Td 2020-05-15 Completed [facility] 00:00:00 [facility] Td 2020-05-15 Completed [facility] 00:00:00 [facility] Td 2020-05-15 Completed [facility] 00:00:00 [facility] Td 2020-05-15 Completed [facility] 00:00:00 [facility] Td 2020-05-15 Completed [facility] 00:00:00 [facility] Td 2020-05-15 Completed [facility] 00:00:00 [facility] Td 2020-05-15 Completed [facility] 00:00:00 [facility] Td 2020-05-15 Completed [facility] 00:00:00 [facility] Td 2020-05-15 Completed [facility] 00:00:00 [facility] Td 2020-05-15 Completed [facility] 00:00:00 [facility] Td 2020-05-15 Completed [facility] 00:00:00 [facility] Td 2020-05-15 Completed [facility] 00:00:00 [facility] Td 2020-05-15 Completed [facility] of 00:00:00 [facility] Td 2020-05-15 Completed [facility] 00:00:00 [facility] Td 2020-05-15 Completed [facility] 00:00:00 [facility] Td 2020-05-15 Completed [facility] 00:00:00 [facility] Td 2020-05-15 Completed [facility] 00:00:00 [facility] Td 2020-05-15 Completed [facility] 00:00:00 [facility] Td 2020-05-15 Completed [facility] 00:00:00 [facility] Td 2020-05-15 Completed [facility] 00:00:00 [facility] Td 2020-05-15 Completed [facility] 00:00:00 [facility] Td 2020-05-15 Completed [facility] 00:00:00 [facility] Td 2020-05-15 Completed [facility] 00:00:00 [facility] Td 2020-05-15 Completed [facility] 00:00:00 [facility] Td 2020-05-15 Completed [facility] 00:00:00 [facility] Td 2020-05-15 Completed [facility] 00:00:00 [facility] Td 2020-05-15 Completed [facility] 00:00:00 [facility] Td 2020-05-15 Completed [facility] 00:00:00 [facility] Td 2020-05-15 Completed [facility] 00:00:00 [facility] Td 2020-05-15 Completed [facility] 00:00:00 [facility] Td 2020-05-15 Completed [facility] 00:00:00 [facility] Td 2020-05-15 Completed [facility] 00:00:00 [facility] Td 2020-05-15 Completed [facility] of 00:00:00 [facility] Td 2020-05-15 Completed [facility] 00:00:00 [facility] Td 2020-05-15 Completed [facility] of 00:00:00 [facility] Td 2020-05-15 Completed [facility] of 00:00:00 [facility] Td 2020-05-15 Completed [facility] of 00:00:00 [facility] Td 2020-05-15 Completed [facility] of 00:00:00 [facility] Td 2020-05-15 Completed [facility] of 00:00:00 [facility] Td 2020-05-15 Completed [facility] of 00:00:00 [facility] Td 2020-05-15 Completed [facility] 00:00:00 [facility] Td 2020-05-15 Completed [facility] of 00:00:00 [facility] Td 2020-05-15 Completed [facility] of 00:00:00 [facility] Td 2020-05-15 Completed [facility] of 00:00:00 [facility] Td 2020-05-15 Completed [facility] of 00:00:00 [facility] Td 2020-05-15 Completed [facility] of 00:00:00 [facility] Tdap 2016-11-06 Completed [facility] 00:00:00 Hospital Vital Signs Vital Name Observation Time Observation Value Comments Source Systolic blood 2021-06-25 15:05:00 124 mm[Hg] Univer sity of pressure [facility] Diastolic blood 2021-06-25 15:05:00 80 mm[Hg] Unive rsity of pressure [facility] Heart rate 2021-06-25 15:05:00 69 /min [facility] Body temperature 2021-06-25 15:05:00 36.72 [facility] 2021-06-25 15:05:00 18 /min [facility] Body height 2021-06-25 15:05:00 152.4 cm [facility] Body weight 2021-06-25 15:05:00 101.515 kg [facility] BMI 2021-06-25 15:05:00 43.71 kg/m2 [facility] Systolic blood 2021-05-28 16:23:00 122 mm[Hg] Univer sity of pressure [facility] Diastolic blood 2021-05-28 16:23:00 74 mm[Hg] Unive rsity of pressure [facility] Heart rate 2021-05-28 16:23:00 80 /min [facility]i [facility] of [facility] Body temperature 2021-05-28 16:23:00 36.61 Alexandra Univ ersity of [facility] Respiratory rate 2021-05-28 16:23:00 18 /min Univ ersity of [facility] Body height 2021-05-28 16:23:00 152.4 cm [facility]i ty of [facility] Body weight 2021-05-28 16:23:00 100.336 kg [facility]i ty of [facility] BMI 2021-05-28 16:23:00 43.20 kg/m2 [facility] of [facility] Systolic blood 2021-04-28 20:18:00 133 mm[Hg] Univer sity of pressure [facility] Diastolic blood 2021-04-28 20:18:00 77 mm[Hg] Unive rsity of pressure [facility] Heart rate 2021-04-28 20:17:00 70 /min Universi ty of [facility] Respiratory rate 2021-04-28 20:17:00 18 /min Univ ersity of [facility] Oxygen saturation in 2021-04-28 20:17:00 100 /min University of Arterial blood by [facility] Pulse oximetry Branch Body temperature 2021-04-28 15:03:00 36.78 Alexandra Univ ersity of [facility] Body weight 2021-04-28 12:54:00 102.513 kg Universi ty of [facility] BMI 2021-04-28 12:54:00 44.14 kg/m2 [facility]i [facility] of [facility] Systolic blood 2021-04-26 21:56:00 126 mm[Hg] Univer sity of pressure [facility] Diastolic blood 2021-04-26 21:56:00 68 mm[Hg] Unive rsity of pressure [facility] Heart rate 2021-04-26 21:56:00 69 /min Universi ty of [facility] Respiratory rate 2021-04-26 21:56:00 16 /min Univ ersity of [facility] Oxygen saturation in 2021-04-26 21:56:00 99 /min University of Arterial blood by [facility] Pulse oximetry Branch Body temperature 2021-04-26 19:42:00 37 Alexandra Univ ersity of [facility] Body weight 2021-04-26 19:42:00 102.513 kg Universi ty of [facility] BMI 2021-04-26 19:42:00 44.14 kg/m2 Universi ty of [facility] Systolic blood 2021-04-26 15:20:00 115 mm[Hg] Univer sity of pressure [facility] Diastolic blood 2021-04-26 15:20:00 73 mm[Hg] Unive rsity of pressure [facility] Heart rate 2021-04-26 15:20:00 77 /min Universi ty of [facility] Body temperature 2021-04-26 15:20:00 36.78 Alexandra Univ ersity of [facility] Respiratory rate 2021-04-26 15:20:00 18 /min Univ ersity of [facility] Body height 2021-04-26 15:20:00 152.4 cm Universi ty of [facility] Body weight 2021-04-26 15:20:00 102.513 kg [facility]i ty of [facility] BMI 2021-04-26 15:20:00 44.14 kg/m2 [facility]i ty of [facility] Systolic blood 2020-12-27 15:05:00 115 mm[Hg] Univer sity of pressure [facility] Diastolic blood 2020-12-27 15:05:00 64 mm[Hg] Unive rsity of pressure [facility] Heart rate 2020-12-27 15:05:00 76 /min Universi ty of [facility] Body temperature 2020-12-27 15:05:00 36.83 Alexandra Univ ersity of [facility] Respiratory rate 2020-12-27 15:05:00 18 /min Univ ersity of [facility] Body height 2020-12-27 15:05:00 152.4 cm Universi ty of [facility] Body weight 2020-12-27 15:05:00 105.235 kg Universi ty of [facility] BMI 2020-12-27 15:05:00 45.31 kg/m2 Universi ty of [facility] Systolic blood 2020-12-27 15:05:00 115 mm[Hg] Univer sity of pressure [facility] Diastolic blood 2020-12-27 15:05:00 64 mm[Hg] Unive rsity of pressure [facility] Heart rate 2020-12-27 15:05:00 76 /min Universi ty of [facility] Body temperature 2020-12-27 15:05:00 36.83 Alexandra Univ ersity of [facility] Respiratory rate 2020-12-27 15:05:00 18 /min Univ ersity of [facility] Body height 2020-12-27 15:05:00 152.4 cm [facility]i ty of [facility] Body weight 2020-12-27 15:05:00 105.235 kg [facility]i [facility] of [facility] BMI 2020-12-27 15:05:00 45.31 kg/m2 [facility]i [facility] of [facility] Systolic blood 2020-12-12 14:26:00 118 mm[Hg] Univer sity of pressure [facility] Diastolic blood 2020-12-12 14:26:00 76 mm[Hg] Unive rsity of pressure [facility] Heart rate 2020-12-12 14:26:00 81 /min Universi ty of [facility] Respiratory rate 2020-12-12 14:26:00 16 /min Univ ersity of [facility] Oxygen saturation in 2020-12-12 14:26:00 95 /min [facility] Arterial blood by [facility] Pulse oximetry Branch Body temperature 2020-12-12 14:11:00 36.61 Alexandra Univ ersity of [facility] Body height 2020-12-08 15:44:00 152.4 cm Universi ty of [facility] Body weight 2020-12-08 15:44:00 104.4 kg [facility]i ty of [facility] BMI 2020-12-08 15:44:00 44.95 kg/m2 [facility]i ty of [facility] Systolic blood 2020-12-12 14:16:00 128 mm[Hg] Univer sity of pressure [facility] Diastolic blood 2020-12-12 14:16:00 81 mm[Hg] Unive rsity of pressure [facility] Heart rate 2020-12-12 14:16:00 78 /min Universi ty of [facility] Respiratory rate 2020-12-12 14:16:00 16 /min Univ ersity of [facility] Oxygen saturation in 2020-12-12 14:16:00 93 /min University of Arterial blood by [facility] Pulse oximetry Branch Body temperature 2020-12-12 14:11:00 36.61 Alexandra Univ ersity of [facility] Body height 2020-12-08 15:44:00 152.4 cm Universi ty of [facility] Body weight 2020-12-08 15:44:00 104.4 kg Universi ty of [facility] BMI 2020-12-08 15:44:00 44.95 kg/m2 Universi ty of [facility] Systolic blood 2020-12-05 13:51:00 93 mm[Hg] Univer sity of pressure [facility] Diastolic blood 2020-12-05 13:51:00 67 mm[Hg] Unive rsity of pressure [facility] Heart rate 2020-12-05 13:51:00 62 /min Universi ty of [facility] Body temperature 2020-12-05 13:51:00 36.44 Alexandra Univ ersity of [facility] Respiratory rate 2020-12-05 13:51:00 16 /min Univ ersity of [facility] Body height 2020-12-05 13:51:00 152.4 cm Universi ty of [facility] Body weight 2020-12-05 13:51:00 104.418 kg Universi ty of [facility] BMI 2020-12-05 13:51:00 44.96 kg/m2 Universi ty of [facility] Systolic blood 2020-11-30 20:29:00 117 mm[Hg] Univer sity of pressure [facility] Diastolic blood 2020-11-30 20:29:00 72 mm[Hg] Unive rsity of pressure [facility] Heart rate 2020-11-30 20:29:00 75 /min Universi ty of [facility] Body temperature 2020-11-30 20:29:00 36.78 Alexandra Univ ersity of [facility] Respiratory rate 2020-11-30 20:29:00 16 /min Univ ersity of [facility] Body height 2020-11-30 20:29:00 152.4 cm Universi ty of [facility] Body weight 2020-11-30 20:29:00 104.599 kg Universi ty of [facility] BMI 2020-11-30 20:29:00 45.04 kg/m2 Universi ty of [facility] Systolic blood 2020-11-14 15:39:00 114 mm[Hg] Univer sity of pressure [facility] Diastolic blood 2020-11-14 15:39:00 65 mm[Hg] Unive rsity of pressure [facility] Heart rate 2020-11-14 15:39:00 71 /min Universi ty of [facility] Body temperature 2020-11-14 15:39:00 36.72 Alexandra [facility] ersity of [facility] Respiratory rate 2020-11-14 15:39:00 18 /min [facility] ersity of [facility] Body height 2020-11-14 15:39:00 152.4 cm Universi ty of [facility] Body weight 2020-11-14 15:39:00 107.502 kg Universi ty of [facility] BMI 2020-11-14 15:39:00 46.29 kg/m2 Universi ty of [facility] Systolic blood 2020-05-15 16:30:00 152 mm[Hg] Univer sity of [facility] Diastolic blood 2020-05-15 16:30:00 86 mm[Hg] Unive rsity of [facility] Heart rate 2020-05-15 16:30:00 93 /min Universi ty of [facility] Body temperature 2020-05-15 16:30:00 36.94 Alexandra [facility] ersity [facility] Respiratory rate 2020-05-15 16:30:00 17 /min [facility] Oxygen saturation in 2020-05-15 16:30:00 100 /min [facility] Arterial blood by [facility] Pulse oximetry Branch Body weight 2020-05-15 14:53:00 81.647 kg Universi ty [facility] Procedures Procedure Date / Time Performing Clinician Source Performed POCT URINALYSIS W/O 2021-06-25 00:00:00 Ariadne Wilson [facility] [facility] SPECIFIC GRAVITY [facility] POCT URINALYSIS W/O 2021-05-28 16:25:00 Lisa Zaragoza [facility] GRAVITY [facility] URINALYSIS 2021-04-28 14:25:00 Jasmyn Harris [place] [facility] COVID-19 (ID NOW RAPID 2021-04-28 13:37:00 Jasmyn Harris [facility] TESTING) Medical Branch LIPASE 2021-04-28 13:19:00 Jasmyn Harris [facility] COMP. METABOLIC PANEL 2021-04-28 13:19:00 Jasmyn Harris [facility] ([id number]) [facility] [place] TOTAL BETA HCG ASSAY 2021-04-28 13:19:[address] [facility] CBC WITH DIFF 2021-04-28 13:19:00 Jasmyn Harris [facility] CONSENT/REFUSAL FOR 2021-04-28 12:51:04 Doctor Unareji, [facility] DIAGNOSIS AND TREATMENT [place] [facility] URINALYSIS 2021-04-26 21:42:00 Shahzad Giang [facility] LIPASE 2021-04-26 20:39:00 Shahzad Giang [facility] COMP. METABOLIC PANEL 2021-04-26 20:39:00 Shahzad Giang [facility] ([id number]) [facility] TOTAL BETA HCG ASSAY 2021-04-26 20:39:00 Shahzad Giang [facility] CBC WITH DIFF 2021-04-26 20:39:00 Shahzad Giang [facility] CONSENT/REFUSAL FOR 2021-04-26 19:37:42 Doctor Unareji, [facility] DIAGNOSIS AND TREATMENT [place] [facility] OB TRANSVAGINAL 2021-04-26 17:09:20 Lisa Zaragoza [facility] Branch POCT URINALYSIS W/O 2021-04-26 15:19:00 Lisa Zaragoza [facility] SPECIFIC GRAVITY Medical Branch POCT TEST 2021-04-26 15:18:00 Lisa Zaragoza [facility] [place] CONSENT/REFUSAL FOR 2021-02-02 20:54:48 Doctor David, [facility] DIAGNOSIS AND TREATMENT [facility] ASSIGNMENT OF BENEFITS 2021-02-02 20:54:33 Doctor Unassnuris, [facility] [facility] POCT TEST 2020-12-27 00:00:00 Lisa Zaragoza [facility] CBC WITH DIFF 2020-12-12 12:41:00 Rhona [facility] [facility] DILATION AND CURETTAGE 2020-12-12 12:32:00 Lisa Zaragoza [facility] [place] DAY SURGERY - ADC 2020-12-12 05:01:00 Doctor David, [facility] CBC WITH DIFF 2020-12-11 22:04:00 Lisa Zaragoza [place] [facility] [place] [facility] NOTICE OF PRIVACY 2020-12-11 19:21:37 Doctor David, [facility] NOTICE OF PRIVACY 2020-12-11 19:21:37 Doctor David, [facility] CONSENT/REFUSAL FOR 2020-12-11 19:21:20 Doctor David [facility] DIAGNOSIS AND TREATMENT [facility] [facility] CONSENT/REFUSAL FOR 2020-12-11 19:21:20 Doctor David, [facility] DIAGNOSIS AND TREATMENT [facility] [facility] ASSIGNMENT OF BENEFITS 2020-12-11 19:21:08 Doctor David, [facility] ASSIGNMENT OF BENEFITS 2020-12-11 19:21:08 Doctor David, [facility] US FIRST 2020-11-29 15:47:11 Lisa Zaragoza [facility] TRIMESTER LESS THAN 14 Medical B ranch WEEKS WITH TRANSVAGINAL [facility] PATIENT FINANCIAL 2020-11-29 15:11:22 [facility] [facility] NO SHOW OR MISSED 2020-11-29 15:11:06 Doctor David, [facility] APPOINTMENT POLICY [place] [facility] ACKNOWLEDGEMENT NOTICE OF PRIVACY 2020-11-29 15:08:43 Doctor David, [facility] CONSENT/REFUSAL FOR 2020-11-29 15:08:29 Doctor David, [facility] DIAGNOSIS AND TREATMENT [facility] ASSIGNMENT OF BENEFITS 2020-11-29 15:08:14 [facility]uris[facility] [place] [facility] TOTAL BETA HCG ASSAY 2020-11-20 18:51:[address] 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 XR ELBOW <3 VW LEFT 2020-05-15 15:24:58 Jasmyn Harris [facility] XR FOREARM 2 VW LEFT 2020-05-15 15:24:[address] [facility] XR KNEE 3 VW LEFT 2020-05-15 15:24:58 Jasmyn Harris [facility] POCT TEST 2020-05-15 15:08:38 Jasmyn Harris [facility] URINALYSIS 2020-05-15 15:07:00 Jasmyn Harris [place] [facility] Plan of Care Planned Activity Planned Date Details Comments Source Future Scheduled Test Hepatitis C screening [facility] (procedure) [code = 656680338] Future Scheduled Test Screening for [facility] malignant neoplasm of cervix (procedure) [code = 104115218] Future Scheduled Test INFLUENZA VACCINE [facility] [code = INFLUENZA VACCINE] Encounters Start End Encounter Admission Attending Care Care Encounter Source Date/Time Date/Time Type Type Clinicians Facility Department ID 2021-06-18 Outpatient X [facility] [place] [id number] Univers 22:01:54 [facility] 2021-06-18 Emergency [facility] [id number] Univers 21:58:59 [facility] 2021-06-18 Emergency [facility] [id number] Univers 21:35:19 ity [facility] 2021-06-17 Outpatient LISA ZARAGOZA [facility] [place] [id number] Univers 14:48:59 ity [facility] 2021-08-07 2021-08-07 Outpatient R LISA ZARAGOZA [facility] [id number] Univers 13:30:00 13:30:00 [id number] ity [facility] 2021-07-24 2021-07-24 Outpatient R [facility] [id number] Univers 11:00:00 11:00:00 [id number] ity [facility] 2021-07-23 2021-07-23 Outpatient R LISA ZARAGOZA [facility] [id number] Univers 16:15:00 16:15:00 [id number] ity [facility] 2021-07-02 2021-07-02 Telephone Lisa Zaragoza [facility] [id number] Univers 00:00:00 00:00:00 Cam ANGLEKIERSTEN [id number] i ty [facility] [id number] [phone] Nd dical [address] 2021-06-26 2021-06-26 Outpatient R KATIE [facility] [id number] Univers 08:00:00 08:00:00 ARIADNE [id number] [facility] 2021-06-26 2021-06-26 Outpatient Radha WILSON [facility] [id number] Univers 08:00:00 08:00:00 ARIADNE [facility] 2021-06-25 2021-06-25 Outpatient Radha WILSON [facility] [id number] Univers 11:00:00 11:00:00 ARIADNE [id number] [facility] 2021-06-25 2021-06-25 Outpatient R KATIE [facility] [id number] Univers 11:00:00 11:00:00 ARIADNE [facility] 2021-06-25 2021-06-25 Test Engineering Manager 2, Adc Lab [facility] [id number] Univers 09:58:56 10:13:56 Visit Katie Ariadnemk DIAZ [id number] ity of [facility] [id number] [id number] Nd dical NAL [address] [facility] 2021-06-25 2021-06-25 Routine Katie [facility] [id number] Univers 08:30:18 08:45:18 Ariadne DIAZ [id number] ity of [facility] [id number] [phone] Nd dical NAL [address] [facility] 2021-05-28 2021-05-28 Routine Lisa Zaragoza [facility] [id number] Univers 11:08:42 11:55:53 Luther Diaz 350.1.13.10 it[place] [phone] Nd dical nal 134 [facility] 2021-05-28 2021-05-28 [facility] 10986 3Q-20 Univers 11:15:00 11:15:00 [id number] ity of [facility] 2021-05-28 2021-05-28 Outpatient R LISA ZARAGOZA [facility] 70758 [id number] Univers 11:15:00 11:15:00 ity of [facility] 2021-05-03 2021-05-03 Telephone Lisa Zaragoza [facility] 1.2.840.114 [id number] Univers 00:00:00 00:00:00 Luther Diaz 350.1.13.10 i [place] [phone] Nd dical nal 134 [facility] 2021-05-02 2021-05-02 Test Engineering Manager 2, Adc Lab [facility] 1.2.840.114 [id number] Univers 08:17:41 08:32:41 Visit Lisa Zaragoza 350.1.13.10 [place] [phone] Nd dical nal 353 [facility] 2021-05-02 2021-05-02 Outpatient R [facility] [id number] -20 Univers 08:00:00 08:00:00 [id number] ity of [facility] 2021-05-02 2021-05-02 Outpatient R [facility] [id number] Univers 08:00:00 08:00:00 ity of [facility] 2021-04-28 2021-04-28 Emergency Jasmyn Harris [facility] 1.2.840. 114 [id number] Univers 07:58:00 17:25:00 Adum, Betty Jada [place] 350.1.13.10 [place] [phone] [address] 2021-04-27 2021-04-27 Telephone Lisa Zaragoza [facility] 1.2.840.114 [id number] Univers 00:00:00 00:00:00 Cam [place] 350.1.13.10 i [place] [phone] Nd dical nal 134 [facility] 2021-04-26 2021-04-26 Emergency Rahat [facility] 1.2.840.114 [id number] Univers 14:43:00 18:22:00 Shahzad B [place] 350.1.13.10 i [place] [phone] [address] 2021-04-26 2021-04-26 Initial Lisa Zaragoza [facility] 1.2.186.144 [id number] 0272 Univers 09:57:20 10:52:25 Cam [place] 350.1.13.10 ity [place] [phone] Nd dical nal [address] [place] [address] 2021-04-26 2021-04-26 Outpatient R MILA LISA [facility] 16447 3Q-20 Univers 10:00:00 10:00:00 [id number] ity of [facility] 2021-04-26 2021-04-26 Outpatient R MILA LISA [facility] [id number] Univers 10:00:00 10:00:00 ity of [facility] 2021-04-26 2021-04-26 Telephone Lisa Zaragoza [facility] 1.2.840.114 [id number] Univers 00:00:00 00:00:00 Cam [place] 350.1.13.10 i [place] [phone] Nd dicjoyce [facility] 134 [facility] 2021-04-24 2021-04-24 Telephone Lisa Zaragoaz [facility] 1.2.840.114 [id number] Univers 00:00:00 00:00:00 Cam [place] 350.1.13.10 i [place] [phone] Nd dicjoyce [facility] 134 [facility] 2021-02-02 2021-02-02 Test Engineering Manager Kyra, Adc Lab Main [facility] 1.2.8 40.114 [id number] Univers 15:54:47 16:09:47 Visit Lisa Zaragozaton 350.1.13.10 it[place] of [place] [phone] [facility] 353 [facility] 2021-02-02 2021-02-02 Outpatient R [facility] [id number] -20 Univers 16:00:00 16:00:00 [id number] ity of [facility] 2021-02-02 2021-02-02 Outpatient R LISA ZARAGOZA [facility] [id number] Univers 16:00:00 16:00:00 ity of [facility] 2021-02-02 2021-02-02 Orders Doctor ROGERS 1.2.840.114 [id number] Univers 00:00:00 00:00:00 Only Unassigned, PINKY 350.1.13.10 [facility] 4.2.7.2.686 Mike as [phone] [address] 2021-02-01 2021-02-01 Outpatient R [facility] [id number] -20 Univers 16:00:00 16:00:00 [id number] ity of [facility] 2021-02-012021-02-01 Outpatient R [facility] [id number] Univers 16:00:00 16:00:00 ity of [facility] 2021-01-19 2021-01-19 Case Lisa Zaragoza [facility] 1.2.408.390 [id number] 0433 [facility] 00:00:00 00:00:00 Management Cam [place] 350.1.13.10 [place] [phone] Nd dic[address] 2021-01-19 2021-01-19 Telephone Lisa Zaragoza [facility] 1.2.840.114 [id number] [facility] 00:00:00 00:00:00 Cam [place] 350.1.13.10 i ty [place] [phone] Nd dic[address] 2021-01-19 2021-01-19 Lisa Callahan [facility] 1.2.213.706 [id number] 0433 00:00:00 00:00:00 Management Cam [place] 350.1.13.10 [place] 4.2.7.2.686 Professio [phone] [address] 2021-01-19 2021-01-19 Telephone Lisa Zaragoza [facility] 1.2.840.114 [id number] 00:00:00 00:00:00 Cam [place] 350.1.13.10 [place] 4.2.7.2.686 Professio [phone] [address] 2021-01-17 2021-01-17 Clinical Septimus, 1.2.840.1 [id number] Methodi 15:47:27 15:52:27 Support Antelmo Ramirez 39386.1.[address] 3.430.2.7 Hospit a .3.534070 l .8 2021-01-17 2021-01-17 Test Engineering Manager 2, Adc Lab [facility] 1.2.840.114 [id number] [facility] 13:15:45 13:30:45 Visit Lisa Zaragoza Luther [place] 350.1.13.10 it[place] [phone] Nd dical [address] 2021-01-17 2021-01-17 Test Engineering Manager 2, Adc Lab [facility] 1.2.840.114 [id number] 13:15:45 13:30:45 Visit [place] 350.1.13.10 [place] 4.2.7.2.686 Professio [phone] [address] 2021-01-17 2021-01-17 Outpatient R [facility] [id number] -20 Univers 13:00:00 13:00:00 [id number] ity [facility] 2021-01-17 2021-01-17 Outpatient R [facility] [id number] Univers 13:00:00 13:00:00 ity [facility] 2021-01-17 2021-01-17 Case Lisa Zaragoza [facility] 1.2.370.072 [id number] Univers 00:00:00 00:00:00 Management Cam [place] 350.1.13.10 it[place] [phone] Nd dic[address] 2021-01-17 2021-01-17 Case Lisa Zaragoza [facility] 1.2.287.787 [id number] 4084 00:00:00 00:00:00 Management Cam [place] 350.1.13.10 [place] 4.2.7.2.686 Professio [phone] [address] 2021-01-08 2021-01-08 Test Engineering Manager 2, Adc Lab [facility] 1.2.840.114 [id number] [facility] 08:34:07 08:49:07 Visit Lisa Zaragoza [place] 350.1.13.10 it[place] [phone] Nd dic[address] 2021-01-08 2021-01-08 Test Engineering Manager 2, Adc Lab [facility] 1.2.840.114 [id number] 08:34:07 08:49:07 Visit [place] 350.1.13.10 [place] 4.2.7.2.686 Professio [phone] [address] 2021-01-08 2021-01-08 Outpatient R [facility] [id number] -20 Univers 08:00:00 08:00:00 [id number] ity of [facility] 2021-01-08 2021-01-08 Outpatient R [facility] [id number] Univers 08:00:00 08:00:00 ity of [facility] 2021-01-01 2021-01-01 Test Engineering Manager 2, Adc Lab [facility] 1.2.840.114 [id number] Univers 08:47:10 09:02:10 Visit Lisa Zaragoza [place] 350.1.13.10 it[place] [phone] Nd dic[address] 2021-01-01 2021-01-01 Test Engineering Manager 2, Adc Lab [facility] 1.2.840.114 [id number] 08:47:10 09:02:10 Visit [place] 350.1.13.10 [place] 4.2.7.2.686 Professio [phone] [address] 2021-01-01 2021-01-01 Outpatient R [facility] [id number] -20 Univers 08:30:00 08:30:00 [id number] ity of [facility] 2021-01-01 2021-01-01 Outpatient R [facility] [id number] Univers 08:30:00 08:30:00 ity of [facility] 2021-01-01 2021-01-01 Case Lisa Zaragoza [facility] 1.2.937.689 [id number] Univers 00:00:00 00:00:00 Management Cam [place] 350.1.13.10 [place] [phone] Nd dical [facility] 134 [facility] 2021-01-01 2021-01-01 Case Lisa Zaragoza [facility] 1.2.578.473 [id number] Univers 00:00:00 00:00:00 Management Cam [place] 350.1.13.10 [place] [phone] Me dical nal 134 [facility] 2021-01-01 2021-01-01 Case Lisa Zaragoza [facility] 1.2.662.965 [id number] 2113 00:00:00 00:00:00 Management Cam [place] 350.1.13.10 [place] 4.2.7.2.686 Professio [phone] [address] 2021-01-01 2021-01-01 Case Lisa Zaragoza [facility] 1.2.292.315 [id number] 00:00:00 00:00:00 Management Cam [place] 350.1.13.10 [place] 4.2.7.2.686 Professio [phone] [address] 2020-12-27 2020-12-27 Clinical 1.2.840.1 [id number] Methodi 14:49:37 14:54:[address] 3.430.2.7 Hospit a .3.167493 l .8 2020-12-27 2020-12-27 Test Engineering Manager 2, Adc Lab [facility] 1.2.840.114 [id number] Univers 10:33:06 10:48:06 Visit Lisa Zaragoza [place] 350.1.13.10 it[place] [phone] Nd dical nal [address] [place] [address] 2020-12-27 2020-12-27 Test Engineering Manager 2, Adc Lab [facility] 1.2.840.114 [id number] 10:33:06 10:48:06 Visit [place] 350.1.13.10 [place] 4.2.7.2.686 Professio [phone] [address] 2020-12-27 2020-12-27 Office Lisa Zaragoza [facility] 1.2.060.188 [id number] Univers 09:56:00 10:24:34 Visit Luther [place] 350.1.13.10 i ty [place] [phone] Nd dical nal [address] [place] [address] 2020-12-27 2020-12-27 Office Lisa Zaragoza [facility] 1.2.799.235 [id number] 7882 09:56:00 10:24:34 Visit Luther Diaz 350.1.13.10 [place] 4.2.7.2.686 Professio [phone] [facility] 134 [facility] 2020-12-27 2020-12-27 [facility] 97016 3Q-20 Univers 10:00:00 10:00:00 [id number] ity [facility] 2020-12-27 2020-12-27 Outpatient R [facility]A [facility] [id number] Univers 10:00:00 10:00:00 ity [facility] 2020-12-12 2020-12-12 Outpatient R [facility] 05577 3Q-20 Univers 13:15:00 13:15:00 [id number] ity [facility] 2020-12-12 2020-12-12 [facility] 1.2.840.114 [id number] Univers 07:03:00 10:00:00 Encounter Luther Diaz 350.1.13.10 [place] [address] [phone] [facility] [address] 2020-12-12 2020-12-12 Surgery Lisa Zaragoza [facility] 1.2.742.546 [id number] Univers 08:00:00 09:16:00 Luther Diaz 350.1.13.10 i [place] [address] [phone] [facility] [address] 2020-12-12 2020-12-12 Nurse SUE Arrieta 1.2.840.114 [id number] Univers 00:00:00 00:00:00 Triage Becki VANCE 350.1.13.10 it y of [facility] 4.2.7.2.686 Mike as [phone] [facility] [address] 2020-12-11 2020-12-11 Test Engineering Manager 1, Adc Lab [facility] 1.2.840.114 [id number] Univers 14:26:15 14:41:15 Visit Dwayne Painter 350.1.13.10 ity of Sandi Zaragozaen [facility] 4.2.7.2.686 [facility] [phone] [facility] [address] 2020-12-11 2020-12-11 Laboratory Only, Riya Amaral [facility] 1.2.840. 114 [id number] Univers 14:22:12 14:37:12 Only Dwayne Painter 350.1.13.10 it[place] [phone] [address] 2020-12-11 2020-12-11 Outpatient R LISA ZARAGOZA [facility] 38387 3Q-20 Univers 13:00:00 13:00:00 [id number] ity of [facility] 2020-12-11 2020-12-11 Outpatient R LISA ZARAGOZA [facility] [id number] 00224 Univers 13:00:00 13:00:00 ity of [facility] 2020-12-11 2020-12-11 Outpatient R [facility] [id number] Univers 09:15:00 09:15:00 ity of [facility] 2020-12-05 2020-12-05 [facility] 83515 3Q-20 Univers 16:15:00 16:15:00 [id number] ity of [facility] 2020-12-05 2020-12-05 Outpatient R LISA ZARAGOZA [facility] [id number] Univers 16:15:00 16:15:00 ity [facility] 2020-12-05 2020-12-05 Office Mila Lisa [facility] 1.2.119.313 [id number] Univers 08:27:16 09:14:57 Visit Luther Diaz 350.1.13.10 i [place] [phone] Nd dical [facility] [address] [facility] 2020-12-05 2020-12-05 Outpatient R LISA ZARAGOZA [facility] [id number] Univers 08:30:00 08:30:00 ity [facility] 2020-12-04 2020-12-04 Telephone Mila Lisa [facility] 1.2.840.114 [id number] Univers 00:00:00 00:00:00 Cam [place] 350.1.13.10 i ty [place] [phone] Nd dical nal [address] [place] [address] 2020-11-30 2020-11-30 [facility] 1.2.871.798 [id number] Univers 15:17:13 15:46:59 Cam [place] 350.1.13.10 ity of [place] [phone] Nd dic[address] 2020-11-30 2020-11-30 Outpatient R [facility] 61849 3Q-20 Univers 15:15:00 15:15:00 [id number] ity [facility] 2020-11-30 2020-11-30 Outpatient R ZARAGOZA [facility] 07236 [id number] Univers 15:15:00 15:15:00 ity of [facility] 2020-11-29 2020-11-29 Hospital [facility] 1.2.840.114 [id number] Univers 10:00:00 23:59:00 Encounter Cam [place] 350.1.13.10 ity of [place] [phone] [address] 2020-11-29 2020-11-29 Outpatient R [facility] 74954 3Q-20 Univers 10:00:00 10:00:00 [id number] ity [facility] 2020-11-29 2020-11-29 Outpatient R [facility] [id number] Univers 00:00:00 00:00:00 ity [facility] 2020-11-29 2020-11-29 [facility] 1.2.840.114 [id number] Univers 00:00:00 00:00:00 Cam [place] 350.1.13.10 i [place] [phone] [address] 2020-11-23 2020-11-23 Outpatient R ZARAGOZA, LISA [facility] 59729 [id number] Univers 09:00:00 09:00:00 ity of [facility] 2020-11-22 2020-11-22 Case Lisa Zaragoza [facility] 1.2.776.077 [id number] Univers 00:00:00 00:00:00 Management Luther Diaz 350.1.13.10 [place] [phone] Nd dical nal 134 [facility] 2020-11-22 2020-11-22 Telephone Lisa Zaragoza [facility] 1.2.840.114 [id number] Univers 00:00:00 00:00:00 Cam [place] 350.1.13.10 i ty [place] [phone] Nd dical nal 134 [facility] 2020-11-20 2020-11-20 Outpatient R [facility] [id number] -20 Univers 14:30:00 14:30:00 [id number] ity [facility] 2020-11-20 2020-11-20 Outpatient R LISA ZARAGOZA [facility] [id number] Univers 14:30:00 14:30:00 ity of [facility] 2020-11-20 2020-11-20 Test Engineering Manager 2, Adc Lab [facility] 1.2.840.114 [id number] Univers 13:49:04 14:04:04 Visit Lisa Zaragoza Christa 350.1.13.10 [place] [phone] Nd dical nal 353 [facility] 2020-11-18 2020-11-18 Outpatient R [facility] [id number] -20 Univers 11:00:00 11:00:00 [id number] ity [facility] 2020-11-18 2020-11-18 Outpatient R [facility] [id number] Univers 11:00:00 11:00:00 ity of [facility] 2020-11-16 2020-11-16 Outpatient R [facility] [id number] -20 Univers 13:00:00 13:00:00 [id number] ity [facility] 2020-11-16 2020-11-16 Outpatient R [facility] [id number] Univers 13:00:00 13:00:00 ity of [facility] 2020-11-16 2020-11-16 Test Engineering Manager 2, [facility] Lab [facility] 1.2.840.114 [id number] Univers 11:11:30 11:26:30 Visit Lisa Zaragoza 350.1.13.10 it[place] of [place] [phone] Nd dical nal 353 [facility] 2020-11-14 2020-11-14 Outpatient R [facility] [id number] -20 Univers 13:30:00 13:30:00 [id number] ity of [facility] 2020-11-14 2020-11-14 Test Engineering Manager 2, [facility] Lab [facility] 1.2.840.114 [id number] Univers 11:40:45 11:55:45 Visit Lisa Zaragoza 350.1.13.10 ity of [place] [phone] Nd dicjoyce nal 353 [facility] 2020-11-14 2020-11-14 Initial Sandi Zaragozaen [facility] 1.2.693.815 [id number] 8159 Univers 10:19:19 11:34:01 Luther Diaz 350.1.13.10 ity of [place] [phone] Nd dicjoyce najera 134 [facility] 2020-11-14 2020-11-14 Outpatient R LISA ZARAGOZA [facility] [id number] Univers 10:30:00 10:30:00 ity of [facility] 2020-11-14 2020-11-14 Orders Doctor ROGERS 1.2.840.114 [id number] Univers 00:00:00 00:00:00 Only Unassigned, PINKY 350.1.13.10 ity of [place] [facility] 4.2.7.2.686 Mike as [phone] [address] 2020-07-12 2020-07-12 Lab Reggie 1.2.840.1 [id number] [id number] Methodi 14:21:08 14:26:[address] [facility] 3.430.2.7 Hospit a .3.625892 l .8 2020-05-16 2020-05-16 Nurse SUE L[place]ford 1.2.840.114 [id number] Univers 00:00:00 00:00:00 Triage Anatoliy VANCE 350.1.13.10 ity [facility] 4.2.7.2.686 Mike [phone] [facility] [address] 2020-05-15 2020-05-15 Emergency [facility] 1.2.700.878 [id number] Univers 09:47:00 12:04:00 Jasmyn Diaz 350.1.13.10 i ty [facility] 4.2.7.2.686 [facility] [phone] [facility] [address] 2020-05-15 2020-05-15 Emergency X [facility] [id number] Univers 09:47:00 09:47:00 JASMYN [facility] Results Test Description Test Time Test Comments Results Result Comments Source POCT URINALYSIS W/O SPECIFIC GRAVITY 2021-06-25 15:54:00 Test Item Value Reference Range Interpretation Comme nts POCT PH U (test code = 3254) n/a 5-8 POCT U LEUK EST (test code = 3263) n/a Negative - Negative POCT U NIT (test code = 3262) n/a Negative - Negative POCT U PROT (test code = 3259) neg Negative - Negative POCT U GLU (test code = 3256) neg Negative - Negative POCT U KETONE (test code = 3258) n/a Negative - Negative POCT U BLD (test code = 3257) n/a Negative - Negative [facility] [id number] 16:25:00 Test Item Value Reference Range Interpretation Comments POCT PH U (test code = 3254) n/a 5-8 POCT U LEUK EST (test code = 3263) n/a Negative - Negative POCT U NIT (test code = 3262) n/a Negative - Negative POCT U PROT (test code = 3259) trace Negative - Negative POCT U GLU (test code = 3256) neg Negative - Negative POCT U KETONE (test code = 3258) n/a Negative - Negative POCT U BLD (test code = 3257) n/a Negative - [facility]28 Test Item Value Reference Range Interpretation Comments APPEARANCE (test code = Clear Clear 8330691719) COLOR (test code = Yellow Yellow 4518228713) PH (test code = 4.8-8.0 4492972047) SP GRAVITY (test code = 1.003-1.030 3525830044) GLU U QUAL (test code = Normal Normal 4709782807) BLOOD (test code = Negative Negative 3307347608) KETONES (test code = 80 mg/dL Negative A 9411987499) PROTEIN (test code = 30 mg/dL Negative A 2887-8) UROBILIN (test code = 2.0 mg/dL Normal A 6852749045) BILIRUBIN (test code = Negative Negative 0021844723) NITRITE (test code = Negative Negative 0473679447) LEUK SUSAN (test code = Negative Negative 2663478725) RBC/HPF (test code = See_Comment [Autom ated message] 4362853343) The system [employer] generated this result transmit wolfgang reference range : 0 - 3 HPF. The refe rence range was not u sed to interpret th is result as normal/abnormal . WBC/HPF (test code = See_Comment [Autom ated message] 9487587712) The system [employer] generated this result transmit wolfgang reference range : 0 - 5 HPF. The refe rence range was not u sed to interpret th is result as normal/abnormal . BACTERIA (test code = Few Negative A 8802343134) MUCOUS (test code = Moderate Negative LPF A 8690942401) SQ EPITH (test code = HPF 8870332076) Lab Interpretation (test Abnormal code = 20446-0) [facility] 14:51:28 Test Item Value Reference Range Interpretation Comments APPEARANCE (test code = Clear Clear 5457614977) COLOR (test code = Yellow Yellow 4426194521) PH (test code = 4.8-8.0 8223676092) SP GRAVITY (test code = 1.003-1.030 8036065792) GLU U QUAL (test code = Normal Normal 0459091797) BLOOD (test code = Negative Negative 9771528329) KETONES (test code = 80 mg/dL Negative A 2361187934) PROTEIN (test code = 30 mg/dL Negative A 2887-8) UROBILIN (test code = 2.0 mg/dL Normal A 9179511313) BILIRUBIN (test code = Negative Negative 5557474533) NITRITE (test code = Negative Negative 7407490338) LEUK SUSAN (test code = Negative Negative 4674361806) RBC/HPF (test code = See_Comment [Autom ated message] 7961752814) The system [employer] generated this result transmit wolfgang reference range : 0 - 3 HPF. The refe rence range was not u sed to interpret th is result as normal/abnormal . WBC/HPF (test code = See_Comment [Autom ated message] 3308882897) The system [employer] generated this result transmit wolfgang reference range : 0 - 5 HPF. The refe rence range was not u sed to interpret th is result as normal/abnormal . BACTERIA (test code = Few Negative A 2811414852) MUCOUS (test code = Moderate Negative LPF A 0450678753) SQ EPITH (test code = HPF 3906266006) Lab Interpretation (test Abnormal code = 09864-3) [facility] (QUANTITATIVE)2021-04-28 14:48:32 Test Item Value Reference Range Interpretation Comments BETA HCG (test See_Comment [Automated m essage] code = The system [employer] 1087420065) generated this result transmit wolfgang reference range : Non- fe male and male patien ts: <5 mIU/mL. The reference range was not used to interpret this result as normal/abnormal . CHRISTEN (test code Gestational Age ? ? = CHRISTEN) ?Range (mIU/mL) 1-10 ?Weeks ?[id number] Weeks ?[id number] Weeks ?9089-31642620-08 Weeks ?[id number] Biotin has been reported to cause a negative bias, interpret results relative to patient's use of biotin. [facility] (QUANTITATIVE)2021-04-28 14:48:32 Test Item Value Reference Range Interpretation Comments BETA HCG (test See_Comment [Automated m essage] code = The system whic h [id number]) generated this result transmit wolfgang reference range : Non- fe male and male patien ts: <5 mIU/mL. The reference range was not used to interpret this result as normal/abnormal . CHRISTEN (test code Gestational Age ? ? = CHRISTEN) ?Range (mIU/mL) 1-10 ?Weeks ?[phone] Weeks ?[id number] Weeks ?3677-68881925-89 Weeks ?2501-872664 Biotin has been reported to cause a negative bias, interpret results relative to patient's use of biotin. [facility] (ID NOW RAPID TESTING)2021-04-28 14:10:16 Test Item Value Reference Range Interpretation Comments SARS-CoV-2 Rapid ID NOW Not Detected Not Detected (test code = 85765-5) CHRISTEN (test code = CHRISTEN) ID NOW COVID-19 Assay is an isothermal nucleic acid amplification test intended for the qualitative detection of nucleic acid from SARS-CoV-2 viral RNA in nasopharyngeal ([employer]) specimens. It is used under Emergency Use Authorization (EUA) by FDA. The limit of detection (LOD) of the assay is 125 Genome Equivalents/mL. A positive result is indicative of the presence of SARS-CoV-2 RNA. ?Clinical correlation with patient history and other diagnostic information is necessary to determine patient infection status. A negative (Not Detected) result does not preclude SARS-CoV-2 infection. In patients with a high suspicion of SARS-CoV-2 infection, negative results should be treated as presumptive negative and a new specimen should be tested with alternative nucleic acid amplification molecular test. Invalid: Please collect a new specimen for repeat patient testing if clinically indicated. Lab Interpretation Normal (test code = 44029-1) [facility]-19 (ID NOW RAPID TESTING)2021-04-28 14:10:16 Test Item Value Reference Range Interpretation Comments SARS-CoV-2 Rapid ID NOW Not Detected Not Detected (test code = 57252-3) CHRISTEN (test code = CHRISTEN) ID NOW COVID-19 Assay is an isothermal nucleic acid amplification test intended for the qualitative detection of nucleic acid from SARS-CoV-2 viral RNA in nasopharyngeal ([employer]) specimens. It is used under Emergency Use Authorization (EUA) by FDA. The limit of detection (LOD) of the assay is 125 Genome Equivalents/mL. A positive result is indicative of the presence of SARS-CoV-2 RNA. ?Clinical correlation with patient history and other diagnostic information is necessary to determine patient infection status. A negative (Not Detected) result does not preclude SARS-CoV-2 infection. In patients with a high suspicion of SARS-CoV-2 infection, negative results should be treated as presumptive negative and a new specimen should be tested with alternative nucleic acid amplification molecular test. Invalid: Please collect a new specimen for repeat patient testing if clinically indicated. Lab Interpretation Normal (test code = 38109-2) [facility]. METABOLIC PANEL ([id number])2021-04-28 14:03:20 Test Item Value Reference Range Interpretation Comments NA (test code = 138 mmol/L 135-145 2464637407) K (test code = 4.0 mmol/L 3.5-5.0 9965724246) CL (test code = 104 mmol/L 98-108 2616638456) CO2 TOTAL (test code = 22 mmol/L 23-31 L 1840695277) AGAP (test code = 2-16 9360611254) BUN (test code = 13 mg/dL 7-23 7438009293) GLUCOSE (test code = 97 mg/dL 70-110 5977067246) CREATININE (test code = 0.57 mg/dL 0.50-1.04 1367700724) TOTAL BILI (test code = 0.8 mg/dL 0.1-1.7 0943068878) CALCIUM (test code = 9.5 mg/dL 8.6-10.6 2304537707) T PROTEIN (test code = 8.9 g/dL 6.3-8.2 H 8959609008) ALBUMIN (test code = 4.7 g/dL 3.5-5.0 2139772577) ALK PHOS (test code = 73 U/L 34-122 8742460185) ALTv (test code = 15 U/L 5-35 1742-6) AST(SGOT) (test code = 21 U/L 13-40 8036123271) eGFR (test code = mL/min/1.73m2 7416927296) CHRISTEN (test code = CHRISTEN) Association of Glomerular Filtration Rate (GFR) and Staging of Kidney Disease* + --+ --+ ------+| GFR (mL/min/1.73 m2) ?| With Kidney Damage ?| ?Without Kidney Damage+ --------+ --------+ +| ?>90 ?| ?Stage one ?| ? Normal ?+ ---+ ---+ -------+| ?60-89 ?| ?Stage two ?| ? Decreased GFR ? + --+ --+ ------+| ?30-59 ?| ?Stage three ?| ? Stage three ? + --+ --+ ------+| ?15-29 ?| ?Stage four ? | ? Stage four ?+ ---+ ---+ -------+| ?<15 (or dialysis) ? ?| ?Stage five ? | ? Stage five ?+ ---+ ---+ -------+ *Each stage assumes the associated GFR level has been in effect for at least three months. ?Stages 1 to 5, with or without kidney disease, indicate chronic kidney disease. Notes: Determination of stages one and two (with eGFR >59mL/min/1.73 m2) requires estimation of kidney damage for at least three months as defined by structural or functional abnormalities of the kidney, manifested by either:Pathological abnormalities or Markers of kidney damage (including abnormalities in the composition of the blood or urine or abnormalities in imaging tests). Lab Interpretation Abnormal (test code = 16631-7) [facility]. METABOLIC PANEL ([id number])2021-04-28 14:03:20 Test Item Value Reference Range Interpretation Comments NA (test code = 138 mmol/L 135-145 1323993928) K (test code = 4.0 mmol/L 3.5-5.0 3779153751) CL (test code = 104 mmol/L 98-108 9767525447) CO2 TOTAL (test code = 22 mmol/L 23-31 L 1888906555) AGAP (test code = 2-16 5016703601) BUN (test code = 13 mg/dL 7-23 4487138386) GLUCOSE (test code = 97 mg/dL 70-110 1608730854) CREATININE (test code = 0.57 mg/dL 0.50-1.04 4695366246) TOTAL BILI (test code = 0.8 mg/dL 0.1-1.4 6502597727) CALCIUM (test code = 9.5 mg/dL 8.6-10.6 5464623053) T PROTEIN (test code = 8.9 g/dL 6.3-8.2 H 2006451635) ALBUMIN (test code = 4.7 g/dL 3.5-5.0 2453111911) ALK PHOS (test code = 73 U/L 34-122 9034652904) ALTv (test code = 15 U/L 5-35 1742-6) AST(SGOT) (test code = 21 U/L 13-40 0314639172) eGFR (test code = mL/min/1.73m2 1647288424) CHRISTEN (test code = CHRISTEN) Association of Glomerular Filtration Rate (GFR) and Staging of Kidney Disease* + --+ --+ ------+| GFR (mL/min/1.73 m2) ?| With Kidney Damage ?| ?Without Kidney Damage+ --------+ --------+ +| ?>90 ?| ?Stage one ?| ? Normal ?+ ---+ ---+ -------+| ?60-89 ?| ?Stage two ?| ? Decreased GFR ? + --+ --+ ------+| ?30-59 ?| ?Stage three ?| ? Stage three ? + --+ --+ ------+| ?15-29 ?| ?Stage four ? | ? Stage four ?+ ---+ ---+ -------+| ?<15 (or dialysis) ? ?| ?Stage five ? | ? Stage five ?+ ---+ ---+ -------+ *Each stage assumes the associated GFR level has been in effect for at least three months. ?Stages 1 to 5, with or without kidney disease, indicate chronic kidney disease. Notes: Determination of stages one and two (with eGFR >59mL/min/1.73 m2) requires estimation of kidney damage for at least three months as defined by structural or functional abnormalities of the kidney, manifested by either:Pathological abnormalities or Markers of kidney damage (including abnormalities in the composition of the blood or urine or abnormalities in imaging tests). Lab Interpretation Abnormal (test code = 47239-4) [facility] Test Item Value Reference Range Interpretation Comments LIPASE (test code = 2615834774) 62 U/L 0-220 Lab Interpretation (test code = Normal 32692-1) [facility]:02[facility] Test Item Value Reference Range Interpretation Comments LIPASE (test code = 0012200607) 62 U/L 0-220 Lab Interpretation (test code = Normal 74679-4) [id number] 13:43:15 Test Item Value Reference Range Interpretation Comments WBC (test code = See_Comment H [Automated 3290-2) message] The sy stem which generated this result transmitted reference range : 4.30 - 11.10 10*3/?L. The reference range was not used to interpret this result as normal/abnormal . RBC (test code = See_Comment [Automated 619-8) message] The sy stem which generated this result transmitted reference range : 3.93 - 5.25 10*6/?L. The reference range was not used to interpret this result as normal/abnormal . HGB (test code = 11.8 g/dL 11.6-15.0 718-7) HCT (test code = 36.4 % 35.7-45.2 4544-3) MCV (test code = 80.7 fL 80.6-95.5 787-2) MCH (test code = 26.2 pg 25.9-32.8 785-6) MCHC (test code = 32.4 g/dL 31.6-35.1 786-4) RDW-SD (test code = 43.1 fL 39.0-49.9 92931-2) RDW-CV (test code = 14.8 % 12.0-15.5 788-0) PLT (test code = See_Comment [Automated 997-3) message] The sy stem which generated this result transmitted reference range : 166 - 358 10*3/ ?L. The reference r cami was not used to interpret this result as normal/abnormal . MPV (test code = 11.2 fL 9.5-12.9 74540-4) NRBC/100 WBC (test See_Comment [Automat ed code = 4194423593) message] The system which generated this result transmitted reference range : 0.0 - 10.0 /100 WBCs. The refer ence range was not u sed to interpret th is result as normal/abnormal . NRBC x10^3 (test code <0.01 See_Comment [Auto mated = 8711205168) message] The s ystem which generated this result transmitted reference range : 10*3/?L. The reference range was not used to interpret this result as normal/abnormal . GRAN MAT (NEUT) % 80.2 % (test code = 770-8) IMM GRAN % (test code 0.70 % = 9651676944) LYMPH % (test code = 13.3 % 736-9) MONO % (test code = 4.9 % 5905-5) EOS % (test code = 0.5 % 713-8) BASO % (test code = 0.4 % 706-2) GRAN MAT x10^3(ANC) 9.19 10*3/uL 1.88-7.09 H (test code = 2312717643) IMM GRAN x10^3 (test 0.08 10*3/uL 0.00-0.06 H code = 8882551712) LYMPH x10^3 (test code 1.52 10*3/uL 1.32-3.29 = 731-0) MONO x10^3 (test code 0.56 10*3/uL 0.33-0.92 = 742-7) EOS x10^3 (test code = 0.06 10*3/uL 0.03-0.39 711-2) BASO x10^3 (test code 0.05 10*3/uL 0.01-0.07 = 704-7) Lab Interpretation Abnormal (test code = 31345-9) [facility] WITH [id number] 13:43:15 Test Item Value Reference Range Interpretation Comments WBC (test code = See_Comment H [Automated 6690-2) message] The sy stem which generated this result transmitted reference range : 4.30 - 11.10 10*3/?L. The reference range was not used to interpret this result as normal/abnormal . RBC (test code = See_Comment [Automated 789-8) message] The sy stem which generated this result transmitted reference range : 3.93 - 5.25 10*6/?L. The reference range was not used to interpret this result as normal/abnormal . HGB (test code = 11.8 g/dL 11.6-15.0 718-7) HCT (test code = 36.4 % 35.7-45.2 4544-3) MCV (test code = 80.7 fL 80.6-95.5 787-2) MCH (test code = 26.2 pg 25.9-32.8 785-6) MCHC (test code = 32.4 g/dL 31.6-35.1 786-4) RDW-SD (test code = 43.1 fL 39.0-49.9 51718-3) RDW-CV (test code = 14.8 % 12.0-15.5 788-0) PLT (test code = See_Comment [Automated 777-3) message] The sy stem which generated this result transmitted reference range : 166 - 358 10*3/ ?L. The reference r cami was not used to interpret this result as normal/abnormal . MPV (test code = 11.2 fL 9.5-12.9 55595-0) NRBC/100 WBC (test See_Comment [Automat ed code = 7802409934) message] The system which generated this result transmitted reference range : 0.0 - 10.0 /100 WBCs. The refer ence range was not u sed to interpret th is result as normal/abnormal . NRBC x10^3 (test code <0.01 See_Comment [Auto mated = 0005530577) message] The s ystem which generated this result transmitted reference range : 10*3/?L. The reference range was not used to interpret this result as normal/abnormal . GRAN MAT (NEUT) % 80.2 % (test code = 770-8) IMM GRAN % (test code 0.70 % = 5688405732) LYMPH % (test code = 13.3 % 736-9) MONO % (test code = 4.9 % 5905-5) EOS % (test code = 0.5 % 713-8) BASO % (test code = 0.4 % 706-2) GRAN MAT x10^3(ANC) 9.19 10*3/uL 1.88-7.09 H (test code = 8785792591) IMM GRAN x10^3 (test 0.08 10*3/uL 0.00-0.06 H code = 4277906157) LYMPH x10^3 (test code 1.52 10*3/uL 1.32-3.29 = 731-0) MONO x10^3 (test code 0.56 10*3/uL 0.33-0.92 = 742-7) EOS x10^3 (test code = 0.06 10*3/uL 0.03-0.39 711-2) BASO x10^3 (test code 0.05 10*3/uL 0.01-0.07 = 704-7) Lab Interpretation Abnormal (test code = 93343-2) [facility] BETA HCG [id number] 22:09:21 Test Item Value Reference Range Interpretation Comments BETA HCG (test See_Comment [Automated m essage] code = The system [facility] h 3543989480) generated this result transmit wolfgang reference range : Non- fe male and male patien ts: <5 mIU/mL. The reference range was not used to interpret this result as normal/abnormal . CHRISTEN (test code Gestational Age ? ? = CHRISTEN) ?Range (mIU/mL) 1-10 ?Weeks ?39-15428207-76 Weeks ?47952-89599958-73 Weeks ?1384-55294068-31 Weeks ?5388-314259 Biotin has been reported to cause a negative bias, interpret results relative to patient's use of biotin. [facility] BETA HCG [id number] 22:09:21 Test Item Value Reference Range Interpretation Comments BETA HCG (test See_Comment [Automated m essage] code = The system [employer] 9825665428) generated this result transmit wolfgang reference range : Non- fe male and male patien ts: <5 mIU/mL. The reference range was not used to interpret this result as normal/abnormal . CHRISTEN (test code Gestational Age ? ? = CHRISTEN) ?Range (mIU/mL) 1-10 ?Weeks ?30-41435106-00 Weeks ?50889-24715898-36 Weeks ?1501-96593181-03 Weeks ?0657-092330 Biotin has been reported to cause a negative bias, interpret results relative to patient's use of biotin. [facility] Test Item Value Reference Range Interpretation Comments APPEARANCE (test code = Hazy Clear A 3451219537) COLOR (test code = Yellow Yellow 0537139207) PH (test code = 4.8-8.0 6651751615) SP GRAVITY (test code = 1.003-1.030 4785418582) GLU U QUAL (test code = Normal Normal 6856614920) BLOOD (test code = Negative Negative 4492394181) KETONES (test code = 20 mg/dL Negative A 6521583149) PROTEIN (test code = Negative Negative 2887-8) UROBILIN (test code = Normal Normal 7729354553) BILIRUBIN (test code = Negative Negative 7083122994) NITRITE (test code = Negative Negative 7863040671) LEUK SUSAN (test code = 25/uL Negative A 8665728638) RBC/HPF (test code = See_Comment H [Autom ated message] 4678467209) The system [employer] generated this result transmitted ref erence range: 0 - 3 HP F. The reference range was not used to int erpret this result as normal/abnormal . WBC/HPF (test code = See_Comment [Autom ated message] 8914183934) The system [employer] generated this result transmitted ref erence range: 0 - 5 HP F. The reference range was not used to int erpret this result as normal/abnormal . BACTERIA (test code = Negative Negative 0122117857) MUCOUS (test code = Slight Negative LPF A 1253907774) SQ EPITH (test code = HPF 1336253908) Lab Interpretation (test Abnormal code = 69046-6) [facility] Test Item Value Reference Range Interpretation Comments APPEARANCE (test code = Hazy Clear A 5413887813) COLOR (test code = Yellow Yellow 9024810961) PH (test code = 4.8-8.0 7840880151) SP GRAVITY (test code = 1.003-1.030 4528501869) GLU U QUAL (test code = Normal Normal 3451892608) BLOOD (test code = Negative Negative 6712818220) KETONES (test code = 20 mg/dL Negative A 4401485309) PROTEIN (test code = Negative Negative 2887-8) UROBILIN (test code = Normal Normal 7180072339) BILIRUBIN (test code = Negative Negative 8907384193) NITRITE (test code = Negative Negative 4175877135) LEUK SUSAN (test code = 25/uL Negative A 6267915430) RBC/HPF (test code = See_Comment H [Autom ated message] 5441902912) The system [employer] generated this result transmitted ref erence range: 0 - 3 HP F. The reference range was not used to int erpret this result as normal/abnormal . WBC/HPF (test code = See_Comment [Autom ated message] 5746325776) The system [employer] generated this result transmitted ref erence range: 0 - 5 HP F. The reference range was not used to int erpret this result as normal/abnormal . BACTERIA (test code = Negative Negative 6422171528) MUCOUS (test code = Slight Negative LPF A 3293181103) SQ EPITH (test code = HPF 3826044442) Lab Interpretation (test Abnormal code = 30776-6) [facility] Test Item Value Reference Range Interpretation Comments LIPASE (test code = 8943997353) 49 U/L 0-220 Lab Interpretation (test code = Normal 89106-6) [facility]:03:02 Test Item Value Reference Range Interpretation Comments LIPASE (test code = 2621550855) 49 U/L 0-220 Lab Interpretation (test code = Normal 34112-9) [facility] ([id number])2021-04-26 21:02:42 Test Item Value Reference Range Interpretation Comments NA (test code = 135 mmol/L 135-145 2510852864) K (test code = 4.4 mmol/L 3.5-5.0 8598981441) CL (test code = 104 mmol/L 98-108 3979709256) CO2 TOTAL (test code = 21 mmol/L 23-31 L 1802389723) AGAP (test code = 2-16 8528714718) BUN (test code = 11 mg/dL 7-23 3154546523) GLUCOSE (test code = 104 mg/dL 70-110 7947252916) CREATININE (test code = 0.56 mg/dL 0.50-1.04 8919609110) TOTAL BILI (test code = 0.7 mg/dL 0.1-1.0 9027123763) CALCIUM (test code = 9.5 mg/dL 8.6-10.6 3467262415) T PROTEIN (test code = 8.6 g/dL 6.3-8.2 H 4056122945) ALBUMIN (test code = 4.6 g/dL 3.5-5.0 0389150144) ALK PHOS (test code = 70 U/L 34-122 6877412937) ALTv (test code = 15 U/L 5-35 1742-6) AST(SGOT) (test code = 24 U/L 13-40 1988918740) eGFR (test code = mL/min/1.73m2 3659253593) CHRISTEN (test code = CHRISTEN) Association of Glomerular Filtration Rate (GFR) and Staging of Kidney Disease* + --+ --+ ------+| GFR (mL/min/1.73 m2) ?| With Kidney Damage ?| ?Without Kidney Damage+ --------+ --------+ +| ?>90 ?| ?Stage one ?| ? Normal ?+ ---+ ---+ -------+| ?60-89 ?| ?Stage two ?| ? Decreased GFR ? + --+ --+ ------+| ?30-59 ?| ?Stage three ?| ? Stage three ? + --+ --+ ------+| ?15-29 ?| ?Stage four ? | ? Stage four ?+ ---+ ---+ -------+| ?<15 (or dialysis) ? ?| ?Stage five ? | ? Stage five ?+ ---+ ---+ -------+ *Each stage assumes the associated GFR level has been in effect for at least three months. ?Stages 1 to 5, with or without kidney disease, indicate chronic kidney disease. Notes: Determination of stages one and two (with eGFR >59mL/min/1.73 m2) requires estimation of kidney damage for at least three months as defined by structural or functional abnormalities of the kidney, manifested by either:Pathological abnormalities or Markers of kidney damage (including abnormalities in the composition of the blood or urine or abnormalities in imaging tests). Lab Interpretation Abnormal (test code = 17472-2) [facility]. METABOLIC PANEL ([id number])2021-04-26 21:02:42 Test Item Value Reference Range Interpretation Comments NA (test code = 135 mmol/L 135-145 9988015988) K (test code = 4.4 mmol/L 3.5-5.0 3964271760) CL (test code = 104 mmol/L 98-108 3873001465) CO2 TOTAL (test code = 21 mmol/L 23-31 L 9942731444) AGAP (test code = 2-16 9191094023) BUN (test code = 11 mg/dL 7-23 1077487266) GLUCOSE (test code = 104 mg/dL 70-110 5708343383) CREATININE (test code = 0.56 mg/dL 0.50-1.04 3497847947) TOTAL BILI (test code = 0.7 mg/dL 0.1-1.3 6726651359) CALCIUM (test code = 9.5 mg/dL 8.6-10.6 2571594431) T PROTEIN (test code = 8.6 g/dL 6.3-8.2 H 4410377643) ALBUMIN (test code = 4.6 g/dL 3.5-5.0 9489014970) ALK PHOS (test code = 70 U/L 34-122 0770128737) ALTv (test code = 15 U/L 35 1742-6) AST(SGOT) (test code = 24 U/L 13-40 6028917048) eGFR (test code = mL/min/1.73m2 5399112505) CHRISTEN (test code = CHRISTEN) Association of Glomerular Filtration Rate (GFR) and Staging of Kidney Disease* + --+ --+ ------+| GFR (mL/min/1.73 m2) ?| With Kidney Damage ?| ?Without Kidney Damage+ --------+ --------+ +| ?>90 ?| ?Stage one ?| ? Normal ?+ ---+ ---+ -------+| ?60-89 ?| ?Stage two ?| ? Decreased GFR ? + --+ --+ ------+| ?30-59 ?| ?Stage three ?| ? Stage three ? + --+ --+ ------+| ?15-29 ?| ?Stage four ? | ? Stage four ?+ ---+ ---+ -------+| ?<15 (or dialysis) ? ?| ?Stage five ? | ? Stage five ?+ ---+ ---+ -------+ *Each stage assumes the associated GFR level has been in effect for at least three months. ?Stages 1 to 5, with or without kidney disease, indicate chronic kidney disease. Notes: Determination of stages one and two (with eGFR >59mL/min/1.73 m2) requires estimation of kidney damage for at least three months as defined by structural or functional abnormalities of the kidney, manifested by either:Pathological abnormalities or Markers of kidney damage (including abnormalities in the composition of the blood or urine or abnormalities in imaging tests). Lab Interpretation Abnormal (test code = 14780-3) [facility] WITH [id number] 20:47:00 Test Item Value Reference Range Interpretation Comments WBC (test code = See_Comment H [Automated 7505-2) message] The sy stem which generated this result transmitted reference range : 4.30 - 11.10 10*3/?L. The reference range was not used to interpret this result as normal/abnormal . RBC (test code = See_Comment [Automated 959-8) message] The sy stem which generated this result transmitted reference range : 3.93 - 5.25 10*6/?L. The reference range was not used to interpret this result as normal/abnormal . HGB (test code = 11.6 g/dL 11.6-15.0 718-7) HCT (test code = 35.7 % 35.7-45.2 4544-3) MCV (test code = 80.0 fL 80.6-95.5 L 787-2) MCH (test code = 26.0 pg 25.9-32.8 785-6) MCHC (test code = 32.5 g/dL 31.6-35.1 786-4) RDW-SD (test code = 42.9 fL 39.0-49.9 28742-1) RDW-CV (test code = 14.7 % 12.0-15.5 788-0) PLT (test code = See_Comment [Automated 777-3) message] The sy stem which generated this result transmitted reference range : 166 - 358 10*3/ ?L. The reference r cami was not used to interpret this result as normal/abnormal . MPV (test code = 10.6 fL 9.5-12.9 60823-5) NRBC/100 WBC (test See_Comment [Automat ed code = 7337472655) message] The system which generated this result transmitted reference range : 0.0 - 10.0 /100 WBCs. The refer ence range was not u sed to interpret th is result as normal/abnormal . NRBC x10^3 (test code <0.01 See_Comment [Auto mated = 7380648122) message] The s ystem which generated this result transmitted reference range : 10*3/?L. The reference range was not used to interpret this result as normal/abnormal . GRAN MAT (NEUT) % 84.2 % (test code = 770-8) IMM GRAN % (test code 0.50 % = 6367890399) LYMPH % (test code = 11.1 % 736-9) MONO % (test code = 3.5 % 5905-5) EOS % (test code = 0.3 % 713-8) BASO % (test code = 0.4 % 706-2) GRAN MAT x10^3(ANC) 9.70 10*3/uL 1.88-7.09 H (test code = 5500282331) IMM GRAN x10^3 (test 0.06 10*3/uL 0.00-0.06 code = 9996908297) LYMPH x10^3 (test code 1.28 10*3/uL 1.32-3.29 L = 731-0) MONO x10^3 (test code 0.40 10*3/uL 0.33-0.92 = 742-7) EOS x10^3 (test code = 0.03 10*3/uL 0.03-0.39 711-2) BASO x10^3 (test code 0.05 10*3/uL 0.01-0.07 = 704-7) Lab Interpretation Abnormal (test code = 41055-6) [facility] WITH [id number] 20:47:00 Test Item Value Reference Range Interpretation Comments WBC (test code = See_Comment H [Automated 8090-2) message] The sy stem which generated this result transmitted reference range : 4.30 - 11.10 10*3/?L. The reference range was not used to interpret this result as normal/abnormal . RBC (test code = See_Comment [Automated 979-8) message] The sy stem which generated this result transmitted reference range : 3.93 - 5.25 10*6/?L. The reference range was not used to interpret this result as normal/abnormal . HGB (test code = 11.6 g/dL 11.6-15.0 718-7) HCT (test code = 35.7 % 35.7-45.2 4544-3) MCV (test code = 80.0 fL 80.6-95.5 L 787-2) MCH (test code = 26.0 pg 25.9-32.8 785-6) MCHC (test code = 32.5 g/dL 31.6-35.1 786-4) RDW-SD (test code = 42.9 fL 39.0-49.9 88744-9) RDW-CV (test code = 14.7 % 12.0-15.5 788-0) PLT (test code = See_Comment [Automated 417-3) message] The sy stem which generated this result transmitted reference range : 166 - 358 10*3/ ?L. The reference r cami was not used to interpret this result as normal/abnormal . MPV (test code = 10.6 fL 9.5-12.9 97424-8) NRBC/100 WBC (test See_Comment [Automat ed code = 2931888237) message] The system which generated this result transmitted reference range : 0.0 - 10.0 /100 WBCs. The refer ence range was not u sed to interpret th is result as normal/abnormal . NRBC x10^3 (test code <0.01 See_Comment [Auto mated = 6055357091) message] The s ystem which generated this result transmitted reference range : 10*3/?L. The reference range was not used to interpret this result as normal/abnormal . GRAN MAT (NEUT) % 84.2 % (test code = 770-8) IMM GRAN % (test code 0.50 % = 8766258474) LYMPH % (test code = 11.1 % 736-9) MONO % (test code = 3.5 % 5905-5) EOS % (test code = 0.3 % 713-8) BASO % (test code = 0.4 % 706-2) GRAN MAT x10^3(ANC) 9.70 10*3/uL 1.88-7.09 H (test code = 1828998156) IMM GRAN x10^3 (test 0.06 10*3/uL 0.00-0.06 code = 9898861342) LYMPH x10^3 (test code 1.28 10*3/uL 1.32-3.29 L = 731-0) MONO x10^3 (test code 0.40 10*3/uL 0.33-0.92 = 742-7) EOS x10^3 (test code = 0.03 10*3/uL 0.03-0.39 711-2) BASO x10^3 (test code 0.05 10*3/uL 0.01-0.07 = 704-7) Lab Interpretation Abnormal (test code = 89509-4) [id number] 17:10:11- Limited USG for FHT: ?Single live IUP measured 6 3/7 weeks, consistent with LMP. ?Will date by Patient's last menstrual period was 03/08/2021. ?unless clinically indicated otherwise Lisa Zaragoza MD ?04/26/2021 ?12:10 PMNorth [id number] 17:10:11- Limited USG for FHT: ?Single live IUP measured 6 3/7 weeks, consistent with LMP. ?Will date by Lucia ent's last menstrual period was 03/08/2021. ?unless clinically indicated otherwise Lisa Zaragoza MD ?04/26/2021 ?12:10 [facility] W/O SPECIFIC [id number] 15:19:00 Test Item Value Reference Range Interpretation Comments POCT PH U (test code = 3254) 6 mg/dl 5-8 POCT U LEUK EST (test code = trace Negative - Negative 3263) POCT U NIT (test code = 3262) neg Negative - Negative POCT U PROT (test code = 3259) trace Negative - Negative POCT U GLU (test code = 3256) neg Negative - Negative POCT U KETONE (test code = 3258) neg Negative - Negative POCT U BLD (test code = 3257) neg Negative - Negative [facility] [id number] 15:19:00 Test Item Value Reference Range Interpretation Comments POCT PH U (test code = 3254) 6 mg/dl 5-8 POCT U LEUK EST (test code = trace Negative - Negative 3263) POCT U NIT (test code = 3262) neg Negative - Negative POCT U PROT (test code = 3259) trace Negative - Negative POCT U GLU (test code = 3256) neg Negative - Negative POCT U KETONE (test code = 3258) neg Negative - Negative POCT U BLD (test code = 3257) neg Negative - Negative [facility] [id number] 15:18:00 Test Item Value Reference Range Interpretation Comments POCT PREG (test code Positive = 1605) On board controls Yes acceptable with C Line (test code = 3574) POCT PREG LOT # (test code = 3575) POCT PREG TEST DATE (test code = 3576) CHRISTEN (test code = CHRISTEN) accurate development and interpretation of all internal controls [facility] [id number] 15:18:00 Test Item Value Reference Range Interpretation Comments POCT PREG (test code Positive = 1605) On board controls Yes acceptable with C Line (test code = 3574) POCT PREG LOT # (test code = 3575) POCT PREG TEST DATE (test code = 3576) CHRISTEN (test code = CHRISTEN) accurate development and interpretation of all internal controls [facility] [id number] 15:14:00 Test Item Value Reference Range Interpretation Comments POCT PREG (test code = 1605) Positive faint On board controls acceptable with C Yes Line (test code = 3574) POCT PREG LOT # (test code = 3575) POCT PREG TEST DATE (test code = 3576) [facility] [id number] 15:14:00 Test Item Value Reference Range Interpretation Comments POCT PREG (test code = 1605) Positive faint On board controls acceptable with C Yes Line (test code = 3574) POCT PREG LOT # (test code = 3575) POCT PREG TEST DATE (test code = 3576) [facility] with [id number] 16:12:43 Test Item Value Reference Range Interpretation Comments WBC (test code = See_Comment [Automated 1943-2) message] The sy stem which generated this result transmitted reference range : 4.30 - 11.10 10*3/?L. The reference range was not used to interpret this result as normal/abnormal . RBC (test code = See_Comment [Automated 124-8) message] The sy stem which generated this result transmitted reference range : 3.93 - 5.25 10*6/?L. The reference range was not used to interpret this result as normal/abnormal . HGB (test code = 14.7 g/dL 11.6-15.0 718-7) HCT (test code = 44.9 % 35.7-45.2 4544-3) MCV (test code = 85.5 fL 80.6-95.5 787-2) MCH (test code = 28.0 pg 25.9-32.8 785-6) MCHC (test code = 32.7 g/dL 31.6-35.1 786-4) RDW-SD (test code = 39.8 fL 39.0-49.9 92589-6) RDW-CV (test code = 12.9 % 12.0-15.5 788-0) PLT (test code = See_Comment [Automated 777-3) message] The sy stem which generated this result transmitted reference range : 166 - 358 10*3/ ?L. The reference r cami was not used to interpret this result as normal/abnormal . MPV (test code = 11.4 fL 9.5-12.9 89727-6) NRBC/100 WBC (test See_Comment [Automat ed code = [id number]) message] The system which generated this result transmitted reference range : 0.0 - 10.0 /100 WBCs. The refer ence range was not u sed to interpret th is result as normal/abnormal . NRBC x10^3 (test code <0.01 See_Comment [Auto mated = [id number]) message] The s ystem which generated this result transmitted reference range : 10*3/?L. The reference range was not used to interpret this result as normal/abnormal . GRAN MAT (NEUT) % 78.2 % (test code = 770-8) IMM GRAN % (test code 0.60 % = 4432855939) LYMPH % (test code = 14.7 % 736-9) MONO % (test code = 4.8 % 5905-5) EOS % (test code = 1.5 % 713-8) BASO % (test code = 0.2 % 706-2) GRAN MAT x10^3(ANC) 4.25 10*3/uL 1.88-7.09 (test code = 2427836100) IMM GRAN x10^3 (test 0.03 10*3/uL 0.00-0.06 code = 1144946001) LYMPH x10^3 (test code 0.80 10*3/uL 1.32-3.29 L = 731-0) MONO x10^3 (test code 0.26 10*3/uL 0.33-0.92 L = 742-7) EOS x10^3 (test code = 0.08 10*3/uL 0.03-0.39 711-2) BASO x10^3 (test code <0.03 0.01-0.07 = 704-7) Lab Interpretation Abnormal (test code = 59616-5) [facility] WITH [id number] 22:14:51 Test Item Value Reference Range Interpretation Comments WBC (test code = See_Comment H [Automated 6690-2) message] The sy stem which generated this result transmitted reference range : 4.30 - 11.10 10*3/?L. The reference range was not used to interpret this result as normal/abnormal . RBC (test code = See_Comment [Automated 789-8) message] The sy stem which generated this result transmitted reference range : 3.93 - 5.25 10*6/?L. The reference range was not used to interpret this result as normal/abnormal . HGB (test code = 11.4 g/dL 11.6-15.0 L 718-7) HCT (test code = 35.1 % 35.7-45.2 L 4544-3) MCV (test code = 86.2 fL 80.6-95.5 787-2) MCH (test code = 28.0 pg 25.9-32.8 785-6) MCHC (test code = 32.5 g/dL 31.6-35.1 786-4) RDW-SD (test code = 40.2 fL 39.0-49.9 59047-3) RDW-CV (test code = 12.8 % 12.0-15.5 788-0) PLT (test code = See_Comment [Automated 777-3) message] The sy stem which generated this result transmitted reference range : 166 - 358 10*3/ ?L. The reference r cami was not used to interpret this result as normal/abnormal . MPV (test code = 10.3 fL 9.5-12.9 72133-5) NRBC/100 WBC (test See_Comment [Automat ed code = 9007489831) message] The system which generated this result transmitted reference range : 0.0 - 10.0 /100 WBCs. The refer ence range was not u sed to interpret th is result as normal/abnormal . NRBC x10^3 (test code <0.01 See_Comment [Auto mated = 5063238714) message] The s [employer] which generated this result transmitted reference range : 10*3/?L. The reference range was not used to interpret this result as normal/abnormal . GRAN MAT (NEUT) % 84.2 % (test code = 770-8) IMM GRAN % (test code 0.60 % = 5595428860) LYMPH % (test code = 10.3 % 736-9) MONO % (test code = 4.0 % 5905-5) EOS % (test code = 0.6 % 713-8) BASO % (test code = 0.3 % 706-2) GRAN MAT x10^3(ANC) 9.72 10*3/uL 1.88-7.09 H (test code = 4471730871) IMM GRAN x10^3 (test 0.07 10*3/uL 0.00-0.06 H code = 7314740437) LYMPH x10^3 (test code 1.19 10*3/uL 1.32-3.29 L = 731-0) MONO x10^3 (test code 0.46 10*3/uL 0.33-0.92 = 742-7) EOS x10^3 (test code = 0.07 10*3/uL 0.03-0.39 711-2) BASO x10^3 (test code 0.04 10*3/uL 0.01-0.07 = 704-7) Lab Interpretation Abnormal (test code = 93161-1) [facility] FIRST TRIMESTER LESS THAN 14 WEEKS WITH [id number] 15:51:44HISTORY: with inconclusive viability, increasing beta hCG. TECHNIQUE: Both transabdominal and transvaginal pelvic ultrasound studieswere completed by the technologist. FINDINGS: Uterus is enlarged, measures approximately 10.8 x 4.7 x 6.6 cm insize with single intrauterine of 6 weeks 4 days size by mean sacdiameter of 1.72 cm. Gestational sac is filled with mildly echogenic fluidwith no pole or yolk sac visualized in the left. A small amount ofsubchorionic hemorrhage is seen along the ventral and inferior surfaces ofthe gestational sac, measuring 13 x 10 x 3.5 mm in size. No free fluid in the cul-de-sac. Right ovary is 1.9 x 2.3 x 1.2 cm (2.78 ml) and left ovary is 2.2 x 1.7 x1.5 cm (2.89 ml). 8 mm small cyst noted in the left ovary. CONCLUSIONS: Single IUP of 6 weeks 4 days size without yolk sac or fetalpole, consistent with failed /blighted ovum. [facility], Radiant Results [facility] User - 11/29/2020 10:52 AM CDTHISTORY: with inconclusive viability, increasing beta hCG.TECHNIQUE: Both transabdominal and transvaginal pelvic ultrasound studieswerecompleted by the technologist.FINDINGS: Uterus is enlarged, measures approximately 10.8 x 4.7 x 6.6 cm insize with single intrauterine of 6 weeks 4 days size by mean sacdiameter of 1.72 cm. Gestational sac is filled with mildly echogenic fluidwith no pole or yolk sac visualized in the left. A small amount ofsubchorionic hemorrhage is seen along the ventral and inferior surfaces ofthe gestational sac, measuring 13 x 10 x 3.5 mm in size.No free fluid in the cul-de-sac. Right ovary is 1.9 x 2.3 x 1.2 cm (2.78 ml) and left ovary is 2.2 x 1.7 x1.5 cm (2.89 ml). 8 mm small cyst noted in the left ovary.CONCLUSIONS: Single IUP of 6 weeks 4 days size without yolk sac or fetalpole, consistent with failed /blighted ovum.[facility] BETA HCG [id number] 00:32:02 Test Item Value Reference Range Interpretation Comments BETA HCG (test See_Comment [Automated m essage] code = The system [facility] h [id number]) generated this result transmit wolfgang reference range : Non- fe male and male patien ts: <5 mIU/mL. The reference range was not used to interpret this result as normal/abnormal . CHRISTEN (test code Gestational Age ? ? = CHRISTEN) ?Range (mIU/mL) 1-10 ?Weeks ?41-25784597-69 Weeks ?94702-42728422-34 Weeks ?6923-63601755-24 Weeks ?5168-487773 Biotin has been reported to cause a negative bias, interpret results relative to patient's use of biotin. [facility] OB [id number] 18:03:15 Transvaginal USG showed intrauterine GS with no yolk sac or pole. ?NO free fluid in the cul-de-sac. ? Lisa Zaragoza MD ?11/14/2020 ?1:03 [facility] [id number] 18:03:15Transvaginal USG showed intrauterine GS with no yolk sac or pole. ?NO free fluid in the cul-de- sac. ? Lisa Zaragoza MD ?11/14/2020 ?1:03 [facility] POCT [id number] 15:49:00 Test Item Value Reference Range Interpretation Comments POCT PREG (test code = 1605) Positive On board controls acceptable with C Yes Line (test code = 3574) POCT PREG LOT # (test code = 3575) POCT PREG TEST DATE (test code = 357) [facility] URINALYSIS W/O SPECIFIC [id number] 15:49:00 Test Item Value Reference Range Interpretation Comments POCT PH U (test code = 3254) N/A 5-8 POCT U LEUK EST (test code = N/A Negative - Negative 3263) POCT U NIT (test code = 3262) N/A Negative - Negative POCT U PROT (test code = 3259) Negative Negative - Negative POCT U GLU (test code = 3256) Negative Negative - Negative POCT U KETONE (test code = 3258) N/A Negative - Negative POCT U BLD (test code = 3257) N/A Negative - Negative [facility] [id number] 15:49:00 Test Item Value Reference Range Interpretation Comments POCT PREG (test code = 1605) Positive On board controls acceptable with C Yes Line (test code = 3574) POCT PREG LOT # (test code = 3575) POCT PREG TEST DATE (test code = 3576)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
[2021-07-03 04:16] LABS: Urine Blood Negative (Negative); Urine Glucose Negative (Negative); Urine Protein Negative (Negative); Urine Specific Gravity >=1.030 (1.005-1.030)
[2021-07-03 05:06] LABS: Absolute Lymphocytes (CBC) 1.4 K/uL (0.7-4.9); Basophils % 0.2 % (0-1.3); Hematocrit 30.5 % (36.0-45.0); Lymphocytes % 16.2 % (15.3-44.8); MPV 8.9 fL (7.6-11.3); RBC Red Blood Cell Count 3.66 M/uL (3.86-4.86)
[2021-07-03 05:22] LABS: ALT/SGPT 16 U/L (12-78); AST/SGOT 8 U/L (15-37); Albumin 2.5 g/dL (3.4-5.0); Alkaline Phosphatase 50 U/L (45-117); BUN Blood Urea Nitrogen 9 mg/dL (7-18); Bicarbonate 22 mmol/L (21-32); Bilirubin Direct < 0.1 mg/dL (0-0.2); Bilirubin Total 0.1 mg/dL (0.2-1.0); Glucose Level 99 mg/dL (74-106); Lipase 97 U/L (73-393); Protein, Total 6.7 g/dL (6.4-8.2); Sodium Level 140 mmol/L (136-145)
--- NOTE | 2021-07-03 05:40 | ER ---
Nurse's Notes [facility] Name: Sosa Norris Age: 26 yrs Sex: Female : 1995 Arrival Date: 07/03/2021 Time: 03:54 Bed 5 Private MD: Diagnosis: Calculus of gallbladder without cholecystitis without obstruction;16 weeks gestation of Presentation: 07/03 03:58 Chief complaint: Patient states: Pt 16 weeks states low abd pain/low back pain df1 starting at 0200. Denies vaginal bleeding, N, V. Coronavirus screen: Vaccine status: Patient reports receiving the 2nd dose of the covid vaccine. Client denies travel out of the [place] in the last 14 days. At this time, the client does not indicate any symptoms associated with coronavirus-19. Ebola Screen: Patient negative for fever greater than or equal to 101.5 degrees Fahrenheit, and additional compatible Ebola Virus Disease symptoms Patient denies exposure to infectious person. Patient denies travel to an Ebola-affected area in the 21 days before illness onset. Initial Sepsis Screen: Does the patient meet any 2 criteria? No. Patient's initial sepsis screen is negative. Does the patient have a suspected source of infection? No. Patient's initial sepsis screen is negative. Risk Assessment: Do you want to hurt yourself or someone else? Patient reports no desire to harm self or others. Onset of symptoms was July 03, 2021 at 02:00. 03:58 Method Of Arrival: Ambulatory df1 03:58 Acuity: SEGUNDO 3 df1 Triage Assessment: 04:17 General: Appears in no apparent distress. Behavior is calm, cooperative, appropriate tw5 for age. 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 - Social history:: Smoking status: Patient/guardian denies using tobacco. - Family history:: not pertinent. Screenin:14 Abuse screen: Denies threats or abuse. Denies injuries from another. Nutritional tw5 screening: No deficits noted. Tuberculosis screening: No symptoms or risk factors identified. Fall Risk None identified. Assessment: 04:14 General: Reports " I woke up around too with pain in my lower abdomen and cramping up tw5 top. I couldn't even say it was gas because I cannot pass any. The pain is real bad and I just wanted to make sure baby is okay.". Pain: Complains of pain in right lower quadrant and left lower quadrant " It is worse on the left" Pain currently is 7 out of 10 on a pain scale. Quality of pain is described as crampy, Pain began 2 hours ago. Is intermittent, Alleviated by massage. Cardiovascular: Heart tones S1 S2 present. Respiratory: Breath sounds are clear bilaterally. GI: Bowel sounds present X 4 quads. Abd is soft X 4 quads Abdomen is tender to palpation in right lower quadrant and left lower quadrant. : Urine is clear, Denies burning with urination, discharge. Vital Signs: 03:58 BP 131 / 74; Pulse 87; Resp 18; Temp 98.5; Pulse Ox 100% on R/A; Weight 101.6 kg; df1 Height 5 ft. 0 in. (152.40 cm); Pain 7/10; 05:18 Pulse 78; Resp 18; Pulse Ox 99% on R/A; tw5 06:58 Pain 4/10; tw5 03:58 Body Mass Index 43.75 (101.60 kg, 152.40 cm) df1 Vitals: 05:17 Heart Tones 151 BPM. tw5 ED Course: 03:54 Patient arrived in ED. 04:00 Triage completed. df1 04:05 Cj Tanner MD is Attending Physician. [facility] 04:06 Mandy Harp is Primary Nurse. tw5 04:14 Awaiting lab results. tw5 04:14 Patient has correct armband on for positive identification. Placed in gown. Bed in low tw5 position. Call light in reach. Adult w/ patient. Pulse ox on. NIBP on. Door closed. Noise minimized. Lights dimmed. Moved to private room. Warm blanket given. Verbal reassurance given. 04:49 Urine Culture Sent. bs2 04:49 Basic Metabolic Panel Sent. bs2 04:49 CBC with Diff Sent. bs2 04:49 Hepatic Function Sent. bs2 04:49 Lipase Sent. bs2 04:50 Urine Dipstick-Ancillary Sent. bs2 04:50 Initial lab(s) drawn, by me, sent to lab. Urine collected: clean catch specimen, clear, bs2 ultrasound at bedside. Inserted saline lock: 20 gauge in left forearm, using aseptic technique. 04:51 Arm band placed on left wrist. bs2 05:18 Basic Metabolic Panel Sent. tw5 05:18 Hepatic Function Sent. tw5 05:18 Lipase Sent. tw5 05:18 Urine Culture Sent. tw5 05:19 Ultrasound at the bedside. tw5 05:22 US Abdomen Limited In Process Unspecified. EDMS 05:22 US Rp Exam Limited In Process Unspecified. EDMS 05:23 US OB Limited In Process Unspecified. EDMS 06:02 SARS-COV-2 RT PCR (Document "Date of Onset" if Symptomatic) Sent. tw5 06:58 No provider procedures requiring assistance completed. Patient transferred, IV remains tw5 in place. Administered Medications: 06:02 Drug: Zosyn (piperacillin-tazobactam) 3.375 grams Route: IVPB; Infused Over: 60 mins; tw5 Site: left forearm; 06:58 Follow up: IV Status: Infusion continued upon transfer tw5 06:02 Drug: NS 0.9% 1000 ml Route: IV; Rate: 1 bolus; Site: left forearm; tw5 06:58 Follow up: IV Status: Infusion continued upon transfer tw5 06:02 Drug: morphine 2 mg Route: IVP; Site: left forearm; tw5 06:58 Follow up: Pain 4/10 Adult; Response: No adverse reaction; Pain is decreased; RASS: tw5 Alert and Calm (0) 06:02 Drug: Zofran (Ondansetron) 4 mg Route: IVP; Site: left forearm; tw5 06:58 Follow up: Response: No adverse reaction tw5 Outcome: 05:39 ER care complete, transfer ordered by MD. khan 06:35 Transferred to [facility], Note: Report called to Dorita BRITT in tw5 OB 06:58 Transferred by ground EMS tw5 06:58 Condition: stable 06:58 Patient left the ED. tw5 Signatures: Dispatcher [employer] EDCj Esposito MD MD cha Marsh, Wendy wm Smith, Bridget, BALWINDER RN bs2 Em Cruz df1 Mandy Harp tw5
--- NOTE | 2021-07-03 05:40 | EDPHYS ---
Physician Documentation [facility] Name: Sosa Norris Age: 26 yrs Sex: Female : 1995 Arrival Date: 07/03/2021 Time: 03:54 Bed 5 Private MD: OPAL Physician Cj Tanner HPI: 07/03 04:42 This 26 yrs old Female presents to ER via Ambulatory with complaints of erin Abdominal Pain - 16 WKS PREG.. 04:42 The patient presents with abdominal distention in the upper abdomen, in the lower erin abdomen. Onset: The symptoms/episode began/occurred 1 day(s) ago. The symptoms radiate to left upper quadrant and left lower quadrant. Associated signs and symptoms: none. The symptoms are described as crampy. Modifying factors: The symptoms are alleviated by nothing, the symptoms are aggravated by nothing. Severity of pain: At its worst the pain was mild in the emergency department the pain is unchanged. The patient has not experienced similar symptoms in the past. 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 - Social history:: Smoking status: Patient/guardian denies using tobacco. - Family history:: not pertinent. ROS: 04:42 Constitutional: Negative for fever, chills, and weight loss, Eyes: Negative for injury, erin pain, redness, and discharge, ENT: Negative for injury, pain, and discharge, Neck: Negative for injury, pain, and swelling, Cardiovascular: Negative for chest pain, palpitations, and edema, Respiratory: Negative for shortness of breath, cough, wheezing, and pleuritic chest pain, : Negative for injury, bleeding, discharge, and swelling, MS/Extremity: Negative for injury and deformity, Skin: Negative for injury, rash, and discoloration, Neuro: Negative for headache, weakness, numbness, tingling, and seizure, Psych: Negative for depression, anxiety, suicide ideation, homicidal ideation, and hallucinations, Allergy/Immunology: Negative for hives, rash, and allergies, Endocrine: Negative for neck swelling, polydipsia, polyuria, polyphagia, and marked weight changes, Hematologic/Lymphatic: Negative for swollen nodes, abnormal bleeding, and unusual bruising. 04:42 Abdomen/GI: Positive for abdominal cramps, abdominal distension, of the right upper quadrant, left upper quadrant and left lower quadrant. Exam: 04:42 Constitutional: This is a well developed, well nourished patient who is awake, alert, erin and in no acute distress. Head/Face: Normocephalic, atraumatic. Eyes: Pupils equal round and reactive to light, extra-ocular motions intact. Lids and lashes normal. Conjunctiva and sclera are non-icteric and not injected. Cornea within normal limits. Periorbital areas with no swelling, redness, or edema. ENT: Nares patent. No nasal discharge, no septal abnormalities noted. Tympanic membranes are normal and external auditory canals are clear. Oropharynx with no redness, swelling, or masses, exudates, or evidence of obstruction, uvula midline. Mucous membranes moist. Neck: Trachea midline, no thyromegaly or masses palpated, and no cervical lymphadenopathy. Supple, full range of motion without nuchal rigidity, or vertebral point tenderness. No Meningismus. Chest/axilla: Normal chest wall appearance and motion. Nontender with no deformity. No lesions are appreciated. Cardiovascular: Regular rate and rhythm with a normal S1 and S2. No gallops, murmurs, or rubs. Normal PMI, no JVD. No pulse deficits. Respiratory: Lungs have equal breath sounds bilaterally, clear to auscultation and percussion. No rales, rhonchi or wheezes noted. No increased work of breathing, no retractions or nasal flaring. Back: No spinal tenderness. No costovertebral tenderness. Full range of motion. Skin: Warm, dry with normal turgor. Normal color with no rashes, no lesions, and no evidence of cellulitis. MS/ Extremity: Pulses equal, no cyanosis. Neurovascular intact. Full, normal range of motion. Neuro: Awake and alert, GCS 15, oriented to person, place, time, and situation. Cranial nerves II-XII grossly intact. Motor strength 5/5 in all extremities. Sensory grossly intact. Cerebellar exam normal. Normal gait. Psych: Awake, alert, with orientation to person, place and time. Behavior, mood, and affect are within normal limits. 04:42 ECG was reviewed by the Attending Physician. 04:42 Abdomen/GI: Inspection: distension, that is moderate, gravid appearance, is noted, Bowel sounds: normal, Palpation: soft, Liver: tenderness, that is mild, Hernia: not appreciated. Vital Signs: 03:58 BP 131 / 74; Pulse 87; Resp 18; Temp 98.5; Pulse Ox 100% on R/A; Weight 101.6 kg; df1 Height 5 ft. 0 in. (152.40 cm); Pain 7/10; 05:18 Pulse 78; Resp 18; Pulse Ox 99% on R/A; tw5 06:58 Pain 4/10; tw5 03:58 Body Mass Index 43.75 (101.60 kg, 152.40 cm) df1 MDM: 04:05 Patient medically screened. erin 04:45 Differential diagnosis: cholecystitis, Cholelithiasis, diverticulitis, non-specific abd erin pain, pancreatitis, Pyelonephritis, Ureterolithiasis, urinary tract infection. Data reviewed: vital signs, nurses notes, lab test result(s), EKG, radiologic studies, ultrasound. Data interpreted: desk monitor: rate is 87 beats/min, rhythm is regular, Pulse oximetry: on room air is 100 %. Counseling: I had a detailed discussion with the patient and/or guardian regarding: the historical points, exam findings, and any diagnostic results supporting the discharge/admit diagnosis, lab results, radiology results, the need for outpatient follow up, for definitive care, an OB/Gyne specialist. 07/03 04:16 Order name: Urine Dipstick-Ancillary EDMS 07/03 04:35 Order name: Basic Metabolic Panel; Complete Time: 05:33 [facility] 07/03 04:35 Order name: CBC with Diff; Complete Time: 05:33 [facility] 07/03 04:35 Order name: Hepatic Function; Complete Time: 05:33 [facility] 07/03 04:35 Order name: Lipase; Complete Time: 05:33 [facility] 07/03 04:35 Order name: US Abdomen Limited [facility] 07/03 04:35 Order name: US Rp Exam Limited [facility] 07/03 04:35 Order name: US OB Limited [facility] 07/03 04:35 Order name: Urine Culture [facility] 07/03 05:41 Order name: SARS-COV-2 RT PCR (Document "Date of Onset" if Symptomatic) [facility] 07/03 04:35 Order name: IV Saline Lock; Complete Time: 04:49 [facility] 07/03 04:35 Order name: Labs collected and sent; Complete Time: 04:49 [facility] 07/03 04:35 Order name: FHT's; Complete Time: 05:18 erin EC:42 Rate is 80 beats/min. Rhythm is regular. QRS [place] is Normal. [place] interval is normal. QT erin interval is normal. No Q waves. T waves are Normal. No ST changes noted. Clinical impression: Normal ECG and No evidence of ischemia. Administered Medications: 06:02 Drug: Zosyn (piperacillin-tazobactam) 3.375 grams Route: IVPB; Infused Over: 60 mins; tw5 Site: left forearm; 06:58 Follow up: IV Status: Infusion continued upon transfer tw5 06:02 Drug: NS 0.9% 1000 ml Route: IV; Rate: 1 bolus; Site: left forearm; tw5 06:58 Follow up: IV Status: Infusion continued upon transfer tw5 06:02 Drug: morphine 2 mg Route: IVP; Site: left forearm; tw5 06:58 Follow up: Pain 4/10 Adult; Response: No adverse reaction; Pain is decreased; RASS: tw5 Alert and Calm (0) 06:02 Drug: Zofran (Ondansetron) 4 mg Route: IVP; Site: left forearm; tw5 06:58 Follow up: Response: No adverse reaction tw5 Disposition Summary: 07/03/21 05:39 Transfer Ordered Transfer Location: [facility] erin Reason: Higher level of care erin Condition: Fair erin Problem: new erin Symptoms: have improved erin Accepting Physician: to ob/gs(07/03/21 06:58) tw5 Diagnosis - Calculus of gallbladder without cholecystitis without obstruction erin - 16 weeks gestation of erin Discharge Instructions: - Discharge Summary Sheet erin - Abdominal Pain, Adult erin - Abdominal Pain During erin - Flank Pain, Adult erin - Care erin Forms: - Medication Reconciliation Form erin - SBAR form erin Signatures: Dispatcher [employer] Cj Red MD MD cha Furlich, Dawn df1 Mandy Harp tw5 Corrections: (The following items were deleted from the chart) 06:58 05:39 to ob/gs erin tw
[2021-07-03] MEDS ORDERED: NA CHLORIDE 0.9% 100 ML ONE (05:50)
[2021-07-03] MEDS ORDERED: ONDANSETRON 4 MG/2 ML VIAL ONE (05:50)
[2021-07-03] MEDS ORDERED: MORPHINE 2 MG/ML SYR ONE (05:50)
[2021-07-03] MEDS ORDERED: NA CHLORIDE 0.9% 1,000 ML ONE (05:51)
[2021-07-03] MEDS ORDERED: PIPERACIL/TAZO 3.375 GM VIAL IV ONE (05:51)
[2021-07-03 07:06] VITALS: BP 131/74; TEMP 98.5
[2021-07-03 07:07] VITALS: O2SAT 99
--- NOTE | 2021-07-03 10:36 | RAD REPORT ---
EXAM DESCRIPTION: US - Abdomen Exam Limited - 07/03/2021 5:22 am CLINICAL HISTORY: The patient is 26 years old and is Female; Abd cramping, ;Abd pain TECHNIQUE: Real-time ultrasound of the right upper quadrant with image documentation. COMPARISON: No relevant prior studies available. FINDINGS: Gallbladder: 10 mm stone seen near the gallbladder neck. Gallbladder wall thickness 2.6 mm. No pericholecystic fluid. Common bile duct: Common bile duct 4.3 mm in diameter. No stones. No dilation. Pancreas: Unremarkable as visualized. IMPRESSION: 10 mm stone seen near the gallbladder neck. No pericholecystic fluid or gallbladder wall thickening to suggest cholecystitis. 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 The interpreting r adiologist is fully responsible for the content of the report.
--- NOTE | 2021-07-03 10:37 | RAD REPORT ---
EXAM DESCRIPTION: US - OB Limited - 07/03/2021 5:23 am CLINICAL HISTORY: The patient is 26 years old and is Female; ABD CRAMPING, TECHNIQUE: Real-time limited ultrasound of the maternal uterus with image documentation. COMPARISON: No relevant prior studies available. FINDINGS: Position: Single intrauterine fetus with cephalic presentation. Heart rate: Heart rate 152 bpm. Biometrics: Femur length 2.2 cm. Placenta: Placenta is developing anteriorly. No placenta previa. Cervix: Cervix 3.3 cm. IMPRESSION: Single live with EGA 16 weeks and five days. SCOTT December 14, 2021. Electronically signed by: Elisha Pichardo MD 07/03/2021 6:57 AM AIR TECHNICIAN Due to temporary technical issues with the PACS/Fluency reporting system, reports are being signed by the in house radiologist without review as a courtesy to ensure prompt reporting. The interpreting r adiologist is fully responsible for the content of the report.
--- NOTE | 2021-07-03 10:39 | RAD REPORT ---
EXAM DESCRIPTION: US - Renal Ultrasound-Limited - 07/03/2021 5:23 am CLINICAL HISTORY: The patient is 26 years old and is Female; eft flank;Pain TECHNIQUE: Real-time limited ultrasound of the retroperitoneum with image documentation. COMPARISON: No relevant prior studies available. FINDINGS: Right kidney: Right kidney is 11.4 cm in length. No stones. No hydronephrosis. Left kidney: Left kidney is 11.1 cm in length. No stones. No hydronephrosis. IMPRESSION: Unremarkable renal ultrasound. Electronically signed by: Elisha Pichardo MD 07/03/2021 6:52 AM STRIP FEEDER Due to temporary technical issues with the PACS/Fluency reporting system, reports are being signed by the in house radiologist without review as a courtesy to ensure prompt reporting. The interpreting r adiologist is fully responsible for the content of the report.
--- NOTE | 2021-07-03 16:52 | EKG ---
Test Date: 2021-07-03 Test Time: 04:15:02 Senior Games Technician: MELVA MEASUREMENT RESULTS: Intervals: Rate: 80 ND: 128 QRSD: 88 QT: 386 QTc: 445 [place]: P: 15 ND: 128 QRS: 72 T: 25 INTERPRETIVE STATEMENTS: Normal sinus rhythm Normal ECG No previous ECG available for comparison Electronically Signed On 07-03-21 16:51:03 FOOD SERVICE SUPERVISOR by Joe Garcia
== END 2021-07-03 06:58 | disposition short-term general hospital (02) ==
LOC: ER 03:43
DX: O99.612 Diseases of the digestive system complicating pregnancy, second trimester (principal); K80.20 Calculus of gallbladder without cholecystitis without obstruction; Z3A.16 16 weeks gestation of pregnancy; Z20.822 Contact with and (suspected) exposure to COVID-19
CPT/HCPCS: 96365; 93005; 87088; 85025; 87086; 80048; 36415; 80076; 81003; 83690; 76705; 76815; 76775; 96375; 99285; U0003; J2543; J2270; J7030; J2405

== ENCOUNTER 2023-06-21 13:45 | Emergency (ER) | payer OTHER, SELFPAY ==
--- OUTSIDE RECORDS SUMMARY | 2023-06-21 13:53 | XMS REPORT | Continuity of Care Document ---
:1995 Author Organization [facility] t Address [address] [place] [address] [place] [id number] Care Team Providers Name Role Phone Asked, No Pcp Primary Care Physician Unavailable LISA ZARAGOZA Attending Clinician Unavailable [email or web address] Attending Clinician Unavailable MONY CORTES Attending Clinician Unavailable MONY CORTES Attending Clinician Unavailable Brad MADDEN Attending Clinician Unavailable Brad Mcdonald Attending Clinician Doctor Unassigned, [place] Attending Clinician Unavailable Lisa Zaragoza MD Attending Clinician Dhruv Wilson PA-C Attending Clinician Rick Luis CRNA Attending Clinician Pamella Villanueva MD Attending Clinician Pob, Riya Lab Main Attending Clinician Unavailable Only, Adc Test Attending Clinician Unavailable DHRUV WILSON Attending Clinician Unavailable JEREL HERNANDEZ Attending Clinician Unavailable 2, [facility] Attending Clinician Unavailable Monse Niño PT Attending Clinician Unavailable Jerel Hernandez MD Attending Clinician Ultrasound, Adc m Attending Clinician Unavailable Issa Bales MD Attending Clinician ISSA BALES Attending Clinician Unavailable ISSA BALES Attending Clinician Unavailable Benigno Wood MD, Jenny Attending Clinician [phone] JENNY VELOZ Attending Clinician Unavailable LISA JOY Attending Clinician Unavailable Marcus CASTRO, Lisa Goddard Attending Clinician Jasmyn Harris MD Attending Clinician Betty Ferguson MD Attending Clinician Shahzad Brito Attending Clinician Alicia CASTRO, Antelmo Ramirez Attending Clinician Berny BRITT, Becki Attending Clinician Unavailable 1, [facility] Attending Clinician Unavailable Dwayne Painter MD Attending Clinician Dandre Paredes MD Attending Clinician [phone] Isatu BRITT, Anatoliy Attending Clinician Unavailable JASMYN HARRIS Attending Clinician Unavailable BETTY FERGUSON Admitting Clinician Unavailable LISA ZARAGOZA Admitting Clinician Unavailable [email or web address] Admitting Clinician Unavailable Lisa Zaragoza MD Admitting Clinician LISA JOY Admitting Clinician Unavailable Lisa Joy MD Admitting Clinician Betty Ferguson MD Admitting Clinician Payers Payer Name Policy Type Policy Number Effective Date Expiration Date [facility] [id number] 2020 MEDICAID 00:00:00 [place] [id number] 2020 2020 00:00:00 00:00:00 Problems Condition Condition Condition Status Onset Resolution Last Treating Co mments Source Name Details Category Date Date Treatment Clinician Date Disease Active U nivers depression depression 4-14 it y of 00:00: [place] 00 Medical Branch Weakness Weakness Disease Active Unive rs of both of both 3-28 ity of lower lower 00:00: [place] extremitie extremitie 00 Me dical s s Branch Sacroiliac Sacroiliac Disease Active U nivers joint joint 3-28 ity of dysfunctio dysfunctio [place] Calculus Calculus Disease Active 2020-08 Unive rs of of 1-16 ity of gallbladde gallbladde [place] without [place] without 00 Medi asher cholecysti cholecysti Br anch tis tis without without obstructio obstructio n n Constipati Constipati Disease Active 2020-08 U nivers on on 09-02 ity of 00:00: [place] 00 Medical Branch Acute Acute Disease Active 2020-08 Univers bilateral bilateral 0-11 ity of low back low back 00:00: [place] pain pain 00 Medical Branch Morbid Morbid Disease Active Univers obesity obesity 3-30 ity of with body with body 00:[place] mass index mass index 00 Me dical of Branch 40.0-49.9 40.0-49.9 Disease Active Met [...] screening 00 l of mother of mother Disease Active Univers cardiac cardiac 1-04 ity of echogenic echogenic 00:[place] focus focus 00 [place] Maternal Maternal Disease Active [facility] care for care for 1-04 st other other 00:00: [facility]osp[facility] (suspected (suspected 00 l ) ) abnormalit abnormalit y and y and damage, damage, not not applicable applicable or or unspecifie unspecifie d d Obesity Obesity Disease Active [facility] affecting affecting 04 st , , 00:00: [facility] antepartum antepartum 00 l Allergies, Adverse Reactions, Alerts Allergy Allergy Status Severity Reaction(s) Onset Inactive Treating Comm ents Source Name Type Date Date Clinician BEE DRUG Active Unknown-Cmnt Univ ers STING / INGREDI 12-18 ity of VENOM 00:00: [place] 00 Medical Branch Bee Propensi Active Unknown - Was Unive rs Sting / ty to See comments 12-18 positive i ty of Venom adverse 00:00: during an [place] reaction 00 allergy Medical s test - no Branch reaction ever previousl y NO KNOWN Drug Active Univers ALLERGIE Class ity of S [facility] Social History Social Habit Start Date Stop Date Quantity Comments Source History of tobacco Current smoker Un iversity of use [facility] ASSERTION [facility] Sexual orientation [facility] Exposure to 2022-12-08 2022-12-18 Not sure [facility] SARS-CoV-2 (event) 00:00:00 13:50:[address] [facility] Tobacco use and 2020-12-11 2020-12-11 Smokeless Universit y of exposure 00:00:00 00:00:00 tobacco non-user [facility] History of Social 2019-04-05 2019-04-[address] function 00:00[facility] Cigarette 2019-03-29 2019-03-29 [facility] pack-years 00:00:00 00:00:00 Hospital Alcohol intake 2019-03-29 2019-03-29 Current drinker [facility] 00:00:00 [facility] (finding) Sex Ass[birth year] At [birth year] [facility] 00:00:00 [facility]:00 [facility] Smoking Status Start Date Stop Date Source Ex-smoker 2020-12-11 00:00:00 2020-12-11 00:00:00 Universi ty [facility] Medications Ordered Filled Start Stop Current Ordering Indication Dosage Frequency Signature Comments Components Source Medication Medication Date Date Medication? Clinician (SIG) Name Name methylpredn 2022- No 125mg 125 mg, U nivers isolone sod 12-18-03 Intramuscu i ty of succ 19:15: 18:48 lar, ONCE, [place] (SOLU-MEDRO 00 :00 1 dose, On Me dical L) 12/18/22 Branch injection at 1415, 125 mg RONY SERTraline Yes [id number] 100mg Take 1 Univers (ZOLOFT) 4-14 tablet by ity of 100 mg 00:00: mouth in [place] tablet 00 the Medical morning. Branch SERTraline Yes [id number] 100mg Take 1 Univers (ZOLOFT) 4-14 tablet by ity of 100 mg 00:00: mouth in [place] tablet 00 the Medical morning. Branch SERTraline Yes [id number] 100mg Take 1 Univers (ZOLOFT) 4-14 tablet by ity of 100 mg 00:00: mouth in [place] tablet 00 the Medical morning. Branch 2021- No Take by Unive rs 25/iron 4-22 04-22 mouth. ity of fum/folic/d 07:30: 00:00 [place] romero 50 :00 Medical (-1 Branch ORAL) 2021- No Take by Unive rs 25/iron 4-22 04-22 mouth. ity of fum/folic/d 07:30: 00:00 [place] romero 50 :00 Medical (-1 Branch ORAL) Yes [id number] 1{tbl} Take 1 U nivers vitamin 4-22 tablet by ity of w/FA tablet 00:00: mouth [place] 00 daily. Medical Branch Yes [id number] 1{tbl} Take 1 U nivers vitamin 4-22 tablet by ity of w/FA tablet 00:00: mouth [place] 00 daily. Medical Branch Yes [id number] 1{tbl} Take 1 U nivers vitamin 4-22 tablet by ity of w/FA tablet 00:00: mouth [place] 00 daily. Medical Branch Yes [id number] 1{tbl} Take 1 U nivers vitamin 4-22 tablet by ity of w/FA tablet 00:00: mouth [place] 00 daily. Medical Branch Yes [id number] 1{tbl} Take 1 U nivers vitamin 4-22 tablet by ity of w/FA tablet 00:00: mouth [place] 00 daily. Medical Branch Yes [id number] 1{tbl} Take 1 U nivers vitamin 4-22 tablet by ity of w/FA tablet 00:00: mouth [place] 00 daily. Medical Branch Yes [id number] 1{tbl} Take 1 U nivers vitamin 4-22 tablet by ity of w/FA tablet 00:00: mouth [place] 00 daily. Medical Branch Yes [id number] 1{tbl} Take 1 U nivers vitamin 4-22 tablet by ity of w/FA tablet 00:00: mouth [place] 00 daily. Medical Branch Yes [id number] 1{tbl} Take 1 U nivers vitamin 4-22 tablet by ity of w/FA tablet 00:00: mouth [place] 00 daily. Medical Branch sennosides 2020-08- No [id number] 8.6mg Take 1 Univers 8.6 mg 1-16 -22 tablet by ity of tablet 00:00: 00:00 mouth [place] 00 :00 daily. Medical Branch docusate 2020-08- No [id number] 240mg Take 1 U nivers calcium 240 1-16 -22 capsule by i ty of mg capsule 00:00: 00:00 mouth [place] 00 :00 daily. Medical Branch sennosides 2020-08- No [id number] 8.6mg Take 1 Univers 8.6 mg 1-16 -22 tablet by ity of tablet 00:00: 00:00 mouth [place] 00 :00 daily. Medical Branch docusate 2020-08- No [id number] 240mg Take 1 U nivers calcium 240 1-16 04-22 capsule by i ty of mg capsule 00:00: 00:00 mouth [place] 00 :00 daily. Medical Branch metoclopram 2020-08- No [id number] 10mg Take 1 Univers tori HCl 10 0-11 -22 tablet by ity of mg tablet 00:00: 00:00 mouth [place] 00 :00 every 6 Medical (six) Branch hours as needed for Nausea and Vomiting (N/V). metoclopram 2020-08- No [id number] 10mg Take 1 Univers tori HCl 10 0-11 04-22 tablet by ity of mg tablet 00:00: 00:00 mouth [place] 00 :00 every 6 Medical (six) Branch hours as needed for Nausea and Vomiting (N/V). doxylamine- 2021- No [id number] 1{tbl} Take 1 Univers pyridoxine, 04-26 tablet by it y of vit B6, 00:00: 00:00 mouth [place] (DICLEGIS) 00 :00 SEE-INSTRU Med ical 10-10 mg CTIONS. Branch per tablet doxylamine- 2021- No [id number] 1{tbl} Take 1 Univers pyridoxine, 04-26 tablet by it y of vit B6, 00:00: 00:00 mouth [place] (DICLEGIS) 00 :00 SEE-INSTRU Med ical 10-10 mg CTIONS. Branch per tablet naproxen 2018-08 Yes TAKE 1 [facility] (NAPROSYN) [...] ospita tablet 00 daily. l Immunizations Ordered Filled Date Status Comments Source Immunization Name Immunization Name Influenza Virus 2021-07-09 Completed Universit y of Vaccine Quad IM, 00:00:00 [place] Me dical Preserv and ABX Branch Free 6 MO-64 YRS Influenza Virus 2021-07-09 Completed Universit y of Vaccine Quad IM, 00:00:00 [place] Me dical Preserv and ABX Branch Free 6 MO-64 YRS Influenza Virus 2021-07-09 Completed Universit y of Vaccine Quad IM, 00:00:00 [place] Me dical Preserv and ABX Branch Free 6 MO-64 YRS Influenza Virus 2021-07-09 Completed Universit y of Vaccine Quad IM, 00:00:00 [place] Me dical Preserv and ABX Branch Free 6 MO-64 YRS Influenza Virus 2021-07-09 Completed Universit y of Vaccine Quad IM, 00:00:00 [place] Me dical Preserv and ABX Branch Free 6 MO-64 YRS Influenza Virus 2021-07-09 Completed Universit y of Vaccine Quad IM, 00:00:00 [place] Me dical Preserv and ABX Branch Free 6 MO-64 YRS Influenza Virus 2021-07-09 Completed Universit y of Vaccine Quad IM, 00:00:00 [place] Me dical Preserv and ABX Branch Free 6 MO-64 YRS PFIZER COVID-19 2021-01-17 Completed [facility] SARS-COV-2 COVID-19 2021-01-17 Completed Unive rsity of PFIZER VACCINE 00:00:00 [facility] SARS-COV-2 COVID-19 2021-01-17 Completed Unive rsity of PFIZER VACCINE 00:00:00 [facility] SARS-COV-2 COVID-19 2021-01-17 Completed Unive rsity of PFIZER VACCINE 00:00:00 [facility] SARS-COV-2 COVID-19 2021-01-17 Completed Unive rsity of PFIZER VACCINE 00:00:00 [facility] PFIZER COVID-19 2020-12-27 Completed [facility] MRNA VACCINATION 00:[facility]:00 [facility] SARS-COV-2 COVID-19 2020-12-27 Completed Unive rsity of PFIZER VACCINE 00:00:00 [facility] SARS-COV-2 COVID-19 2020-12-27 Completed Unive rsity of PFIZER VACCINE 00:00:00 [facility] SARS-COV-2 COVID-19 2020-12-27 Completed Unive rsity of PFIZER VACCINE 00:00:00 [facility] SARS-COV-2 COVID-19 2020-12-27 Completed Unive rsity of PFIZER VACCINE 00:00:00 [facility] Influenza Virus 2020-11-14 Completed Universit y of Vaccine Quad .5 mL 00:00:00 [place] Medical IM 6+ MO Branch Influenza Virus 2020-11-14 Completed Universit y of Vaccine Quad .5 mL 00:00:00 [place] Medical IM 6+ MO Branch Influenza Virus 2020-11-14 Completed Universit y of Vaccine Quad .5 mL 00:00:00 [place] Medical IM 6+ MO Branch Influenza Virus 2020-11-14 Completed Universit y of Vaccine Quad .5 mL 00:00:00 [place] Medical IM 6+ MO Branch Influenza Virus 2020-11-14 Completed Universit y of Vaccine Quad .5 mL 00:00:00 [facility] IM 6+ MO Branch Influenza Virus 2020-11-14 Completed Universit y of Vaccine Quad .5 mL 00:00:00 [facility] IM 6+ MO Branch Influenza Virus 2020-11-14 Completed Universit y of Vaccine Quad .5 mL 00:00:00 [facility] 6+ MO Branch Td 2020-05-15 Completed University of 00:00:[address] [facility] Td 2020-05-15 Completed University of 00:00:[address] [facility] Td 2020-05-15 Completed University of 00:00:[address] [facility] TD, NOS 2020-05-15 Completed University of 00:00:[address] [facility] TD, NOS 2020-05-15 Completed University of 00:00:[address] [facility] TD, NOS 2020-05-15 Completed University of 00:00:[address] [facility] TD, NOS 2020-05-15 Completed University of 00:00:[address] [facility] Tdap 2016-11-06 Completed [facility] 00:[facility]:00 [facility] TDAP 2016-11-06 Completed University of 00:00:[address] [facility] TDAP 2016-11-06 Completed University of 00:00:[address] [facility] TDAP 2016-11-06 Completed University of 00:00:[address] [facility] TDAP 2016-11-06 Completed University of 00:00:[address] [facility] TD, NOS Unknown Completed [facility] Influenza Virus Unknown Completed Universit y of Vaccine Quad .5 mL [facility] 6+ MO Branch (FLUZONE/FLULAVAL/F LUARIX) Influenza Virus Unknown Completed Universit y of Vaccine Quad IM, [facility] dical Preserv and ABX Branch Free 6 MO-64 YRS (FLUCELVAX) TDAP Unknown Completed [facility] SARS-COV-2 COVID-19 Unknown Completed Unive rsity of PFIZER VACCINE [facility] SARS-COV-2 COVID-19 Unknown Completed Unive rsity of PFIZER VACCINE [facility] TD, NOS Unknown Completed [facility] Influenza Virus Unknown Completed Universit y of Vaccine Quad .5 mL [place] [facility] 6+ MO Branch (FLUZONE/FLULAVAL/F LUARIX) Influenza Virus Unknown Completed Universit y of Vaccine Quad IM, [facility] dical Preserv and ABX Branch Free 6 MO-64 YRS (FLUCELVAX) TDAP Unknown Completed [facility] SARS-COV-2 COVID-19 Unknown Completed Unive rsity of PFIZER VACCINE [facility] SARS-COV-2 COVID-19 Unknown Completed Unive rsity of PFIZER VACCINE [facility] TD, NOS Unknown Completed [facility] Influenza Virus Unknown Completed Universit y of Vaccine Quad .5 mL [facility] 6+ MO Branch (FLUZONE/FLULAVAL/F LUARIX) Influenza Virus Unknown Completed Universit y of Vaccine Quad IM, [facility] dical Preserv and ABX Branch Free 6 MO-64 YRS (FLUCELVAX) TDAP Unknown Completed [facility] SARS-COV-2 COVID-19 Unknown Completed Unive rsity of PFIZER VACCINE [facility] SARS-COV-2 COVID-19 Unknown Completed Unive rsity of PFIZER VACCINE [facility] TD, NOS Unknown Completed [facility] [place] [facility] Influenza Virus Unknown Completed Universit y of Vaccine Quad .5 mL [facility] 6+ MO Branch (FLUZONE/FLULAVAL/F LUARIX) Influenza Virus Unknown Completed Universit y of Vaccine Quad IM, [facility] dical Preserv and ABX Branch Free 6 MO-64 YRS (FLUCELVAX) TDAP Unknown Completed [facility] [place] [facility] SARS-COV-2 COVID-19 Unknown Completed Unive rsity of PFIZER VACCINE [facility] SARS-COV-2 COVID-19 Unknown Completed Unive rsity of PFIZER VACCINE [facility] Tdap Unknown Completed [facility] PFIZER COVID-19 Unknown Completed [facility] PFIZER COVID-19 Unknown Completed [facility] Vital Signs Vital Name Observation Time Observation Value Comments Source Systolic blood 2022-12-18 17:40:00 106 mm[Hg] Univer sity of pressure [facility] Diastolic blood 2022-12-18 17:40:00 83 mm[Hg] Unive rsity of pressure [facility] Heart rate 2022-12-18 17:40:00 76 /min [facility]i [facility] [place] [facility] Body temperature 2022-12-18 17:40:00 37.28 Alexandra Univ ersity of [place] [facility] Respiratory rate 2022-12-18 17:40:00 20 /min Univ ersity of [place] [facility] Body height 2022-12-18 17:40:00 152.4 cm Universi ty [facility] [place] [facility] Body weight 2022-12-18 17:40:00 99.338 kg Universi ty [facility] [place] [facility] BMI 2022-12-18 17:40:00 42.77 kg/m2 Universi ty [facility] [place] [facility] Oxygen saturation in 2022-12-18 17:40:00 99 /min University of [facility] Pulse oximetry Branch Systolic blood 2022-11-29 15:31:00 131 mm[Hg] Univer sity of pressure [place] [facility] Diastolic blood 2022-11-29 15:31:00 83 mm[Hg] Unive rsity of pressure [place] [facility] Heart rate 2022-11-29 15:31:00 89 /min Universi ty [facility] [place] [facility] Body temperature 2022-11-29 15:31:00 36.5 Alexandra Univ ersity of [place] [facility] Respiratory rate 2022-11-29 15:31:00 16 /min Univ ersity of [place] [facility] Body height 2022-11-29 15:31:00 152.4 cm Universi ty [facility] [place] [facility] Body weight 2022-11-29 15:31:00 99.383 kg [facility]i ty [facility] [place] [facility] BMI 2022-11-29 15:31:00 42.79 kg/m2 [facility]i ty [facility] [place] [facility] Systolic blood 2022-02-27 14:29:00 130 mm[Hg] Univer sity of pressure [place] [facility] Diastolic blood 2022-02-27 14:29:00 76 mm[Hg] Unive rsity of pressure [place] [facility] Heart rate 2022-02-27 14:29:00 65 /min Universi ty [facility] [place] [facility] Body temperature 2022-02-27 14:29:00 36.72 Alexandra Univ ersity of [place] [facility] Respiratory rate 2022-02-27 14:29:00 18 /min Univ ersity of [place] [facility] Body height 2022-02-27 14:29:00 152.4 cm [facility]i ty [facility] [place] [facility] Body weight 2022-02-27 14:29:00 98.431 kg [facility] BMI 2022-02-27 14:29:00 42.38 kg/m2 [facility] Procedures Procedure Date / Time Performing Clinician Source Performed CONSENT/REFUSAL FOR 2022-12-18 17:32:42 Doctor Unassigned, No [facility] DIAGNOSIS AND TREATMENT Name [facility] PATIENT FINANCIAL 2022-11-29 15:15:11 Doctor Unassigned, No [facility] POLICY Name [facility] DISCLOSURE AND CONSENT, 2022-01-07 05:01:00 Doctor Unassigned, N o [facility] MEDICAL AND SURGICAL Name [facility] PROCEDURES COVID-19 QUALITATIVE 2020-07-12 20:45:00 Dandre Paredes [facility] RT-PCR [place] Plan of Care Planned Activity Planned Date Details Comments Source Future Scheduled 2023-06-12 Screening for [facility] Test 04:44:02 malignant neoplasm of cervix (procedure) [code = 353225696] Future Scheduled 2023-06-12 COVID-19 VACCINE (3 [facility] Test 04:44:02 - season) [code = COVID-19 VACCINE (3 - season)] Future Scheduled 2023-06-12 INFLUENZA VACCINE [facility] Test 04:44:02 (#1) [code = INFLUENZA VACCINE (#1)] Future Scheduled Hepatitis C [facility] screening (procedure) [code = 806220761] Future Scheduled Screening for [facility] Test malignant neoplasm of cervix (procedure) [code = 989366577] Future Scheduled INFLUENZA VACCINE [facility] Test [code = INFLUENZA VACCINE] Encounters Start End Encounter Admission Attending Care Care Encounter Source Date/Time Date/Time Type Type Clinicians Facility Department ID 2021-06-18 Out[facility] [id number] [facility]18 Emergency [facility] [id number] Univers 21:58:[facility] 2021-06-18 Emergency [facility] [id number] Univers 21:35:[facility] 2021-06-17 Outpatient MILA, LISA [facility] [id number] Univers 14:48:59 [facility] 2023-06-18 2023-06-18 Outpatient [email or web address] PRIV PRIV [id number] [facility] 00:00:00 00:00:00 dilouann_S [id number] Medic al 2022-12-27 2022-12-27 Outpatient R MONY CORTES [facility] [id number] Univers 09:00:00 09:00:00 MONY CORTES ity [facility] 2022-12-18 2022-12-18 Emergency X Brad MADDEN [facility] ERT [id number] Univers 12:43:00 14:52:[address] [facility] 2022-12-18 2022-12-18 Emergency Brad Madden [facility] [id number] Univers 12:43:00 14:52:00 Anahy DIAZ [id number] i ty [facility] [id number] [facility] [id number] [facility] 084 Branch 2022-11-29 2022-11-29 Outpatient R MONY CORTES [facility] [id number] Univers 10:30:00 10:52:40 [facility] 2022-11-29 2022-11-29 Office Zoë [facility] [id number] Univers 10:30:00 10:52:40 Visit sMony [id number] ity of WOMEN'S [id number] [facility] [id number] [facility] 134 Branch 2022-11-29 2022-11-29 Orders Doctor SUE [id number] Univers 00:00:00 00:00:00 Only Unassigned, PINKY [id number] ity of [place] [facility] [id number] Mike [id number] [facility] 009 Branch 2022-11-25 2022-11-25 Patient Lisa Zaragoza [facility] [id number] Univers 00:00:00 00:00:00 Secure Msg Yash BOYCETON [id number] ity of [place] [id number] [place] [id number] Nh dical NAL [address] [place] [address] 2022-11-06 2022-11-06 [facility] [id number] Univers 13:30:00 13:30:00 ity [facility] 2022-09-05 2022-09-05 Outpatient R MILA [facility] [id number] Univers 10:30:00 10:30:00 ity [facility] 2022-02-27 2022-02-27 Outpatient R MILA [facility] [id number] Univers 09:00:00 09:43:13 ity [facility] 2022-02-27 2022-02-27 Office Mila [facility] [id number] Univers 09:00:00 09:43:13 Visit Yash DIAZ [id number] i ty [place] [id number] [place] [id number] Nh dical NAL [address] [place] [address] 2022-01-22 2022-01-22 Outpatient R MILA [facility] [id number] Univers 15:45:00 [facility]:45:[facility] 2022-01-21 2022-01-21 Office Mila [facility] [id number] Univers 14:00:00 15:01:02 Visit Yash DIAZ [id number] i ty of [place] [id number] [place] [id number] Nh dical NAL [address] [place] [address] 2022-01-21 2022-01-21 Outpatient R MILA [facility] [id number] Univers 14:00:00 15:01:02 ity [facility] 2022-01-21 2022-01-21 Outpatient R MILA [facility] [id number] Univers 14:00:00 14:00:00 ity [facility] 2022-01-21 2022-01-21 Telephone Zaragoza, [facility] [id number] Univers 00:00:00 00:00:00 Cam EMILY 350.1.13.10 [place] [phone] [address] 2022-01-21 2022-01-21 Orders Doctor SUE 1.2.840.114 [id number] Univers 00:00:00 00:00:00 Only Unassigned, PINKY 350.1.13.10 ity of [place] [facility] 4.2.7.2.686 Mike as [phone] [address] 2022-01-07 2022-01-07 Office Lisa Zaragoza [facility] 1.2.960.897 [id number] Univers 14:00:00 14:14:07 Visit Yash DIAZ 350.1.13.10 i [place] [id number] [address] 2022-01-07 2022-01-07 Outpatient R LISA ZARAGOZA [facility] [id number] Univers 14:00:00 14:14:[address] [facility] 2022-01-07 2022-01-07 Outpatient R LISA ZARAGOZA [facility] [id number] Univers 14:00:00 14:00:[address] [facility] 2022-01-07 2022-01-07 Orders Doctor SUE 1.2.840.114 [id number] Univers 00:00:00 00:00:00 Only Unassigned, PINKY 350.1.13.10 ity of [facility] 4.2.7.2.686 Mike as [id number] [address] 2021-12-31 2021-12-31 Routine Dhruv Wilson [facility] 1.2.840.11 [id number] Univers 11:15:00 11:30:00 Lisa Zaragoza Yash CARLIKIERSTEN 350.1.13.10 ity of [place] [phone] [address] 2021-12-31 2021-12-31 Outpatient R LISA ZARAGOZA [facility] [id number] Univers 11:15:00 11:15:[address] [facility] 2021-12-31 2021-12-31 Outpatient R LISA ZARAGOZA [facility] [id number] [id number] Univers 11:15:00 11:15:[address] [facility] 2021-12-21 2021-12-21 Telephone Lisa Zaragoza [facility] 1.2.840.114 [id number] Univers 00:00:00 00:00:00 Cam EMILY 350.1.13.10 i [place] [phone] Nh dical [address] 2021-12-06 2021-12-08 [facility] 1.2.840.114 [id number] Univers 04:00:00 10:00:00 Encounter Yash DIAZ 350.1.13.10 [place] [phone] [address] 2021-12-07 2021-12-07 [facility] 1.2.840.114 [id number] Univers 20:02:12 20:02:12 Event Rick DIAZ 350.1.13.10 i [place] [phone] [address] 2021-12-06 2021-12-06 [facility] 1.2.840.114 [id number] Univers 12:30:00 22:49:00 Event Pamella DIAZ 350.1.13.10 i [place] [id number] [address] 2021-12-06 2021-12-06 Inpatient X LISA ZARAGOZA [facility] [place] [id number] Univers 04:00:00 04:00:[address] 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 114 [id number] Univers 14:00:00 14:15:00 Only Lisa Zaragoza 350.1.13.10 [place] [phone] [address] 2021-12-05 2021-12-05 Outpatient R LISA ZARAGOZA [facility] 48006 [id number] Univers 14:00:00 14:00:[address] [facility] 2021-12-05 2021-12-05 Outpatient R LISA ZARAGOZA [facility] [place] 47879 [id number] Univers 14:00:00 14:00:[address] [facility] 2021-12-05 2021-12-05 Telephone Katie [facility] 1.2.840.114 [id number] Univers 00:00:00 00:00:00 Dhruv EMILY 350.1.13.10 i [place] [phone] [address] 2021-12-03 2021-12-03 Outpatient R LISA ZARAGOZA [facility] [id number] Univers 10:45:00 12:02:[address] [facility] 2021-12-03 2021-12-03 Routine Lisa Zaragoza [facility] 1.2.553.727 [id number] Univers 10:45:00 12:02:44 Yash BOYCEKIERSTEN 350.1.13.10 it[place] [phone] [address] 2021-12-03 2021-12-03 Orders Doctor ROGERS 1.2.840.114 [id number] Univers 00:00:00 00:00:00 Only Unassigned, PINKY 350.1.13.10 ity of [place] [facility] 4.2.7.2.686 Mike as [id number] [facility] 009 [place] 2021-11-27 2021-11-27 Routine Katie [facility] 1.2.338.066 [id number] Univers 10:30:00 10:45:00 Dhruv DIAZ 350.1.13.10 it[place] [phone] Nh dical NAL 134 [facility] 2021-11-27 2021-11-27 Outpatient R KATIE [facility] [id number] Univers 10:30:00 10:30:00 DHRUV itgregorio [facility] 2021-11-21 2021-11-21 Outpatient R DAVID [facility] 67055 [id number] Univers 11:00:00 11:00:00 [facility] 2021-11-21 2021-11-21 Telephone Lisa Zaragoza [facility] 1.2.840.114 [id number] Univers 00:00:00 00:00:00 Cam EMILY 350.1.13.10 i [place] [phone] Nh dical NAL [address] [place] [address] 2021-11-20 2021-11-20 Hand Candle Molder 2, Adc Lab [facility] 1.2.840.114 [id number] Univers 14:15:00 14:30:00 Visit Lisa Zaragoza 350.1.13.10 [place] [id number] Nh dical NAL 353 [facility] 2021-11-20 2021-11-20 Outpatient R LISA ZARAGOZA [facility] [id number] Univers 13:15:00 14:04:22 ity [facility] 2021-11-20 2021-11-20 Routine Lisa Zaragoza [facility] 1.2.705.099 [id number] Univers 13:15:00 14:04:22 Yash DIAZ 350.1.13.10 it[place] [phone] Nh dical NAL 134 [facility] 2021-11-20 2021-11-20 Orders Doctor SUE 1.2.840.114 [id number] Univers 00:00:00 00:00:00 Only Unassigned, PINKY 350.1.13.10 ity of [place] [facility] 4.2.7.2.686 Mike as [phone] [address] 2021-11-12 2021-11-12 Ancillary Monse Niño [facility] 1.2.84 0.114 [id number] Univers 13:45:00 14:30:00 Visit Jerel Hernandez 350.1.13.10 it[place] of [place] [phone] Nh dical [facility] 179 [facility] 2021-11-12 2021-11-12 Outpatient R DAVID [facility] 55165 [id number] Univers 13:45:00 13:45:00 JEREL ity of [facility] 2021-11-09 2021-11-09 Telephone Lisa Zaragoza [place] [facility] 1.2.840.114 [id number] Univers 00:00:00 00:00:00 Cam EMILY 350.1.13.10 i [place] [phone] Nh dical NAL 134 [facility] 2021-11-08 2021-11-08 Outpatient R LISA ZARAGOZA [facility] [id number] Univers 16:00:00 16:00:[address] [facility] 2021-11-08 2021-11-08 Outpatient R LISA ZARAGOZA [facility] [id number] Univers 09:45:00 10:26:[address] [facility] 2021-11-08 2021-11-08 Routine Lisa Zaragoza [place] [facility] 1.2.091.355 [id number] Univers 09:45:00 10:26:12 Yash DIAZ 350.1.13.10 it[place] [phone] Nh dical NAL 134 [facility] 2021-11-04 2021-11-04 Outpatient X LISA ZARAGOZA [facility] [place] [id number] [id number] Univers 10:33:00 14:11:[address] [facility] 2021-11-04 2021-11-04 Emergency Lisa Zaragoza [facility] 1.2.840.114 [id number] Univers 10:33:00 14:11:00 Cam [place] 350.1.13.10 i ty [place] [id number] [facility] 083 [place] 2021-11-04 2021-11-04 Orders Doctor SUE 1.2.840.114 [id number] Univers 00:00:00 00:00:00 Only Unassigned, PINKY 350.1.13.10 ity of [place] [facility] 4.2.7.2.686 Mike as [phone] [facility] 009 [place] 2021-10-25 2021-10-25 [facility] 94503 [id number] Univers 16:30:00 16:45:47 DHRUV ity of [facility] 2021-10-25 2021-10-25 [facility] 1.2.334.190 [id number] Univers 16:30:00 16:45:47 Dhruv DIAZ 350.1.13.10 it[place] [phone] [address] 2021-10-17 2021-10-17 Outpatient R KATIE [facility] [id number] [id number] Univers 14:45:00 14:45:00 DHRUV ity of [facility] 2021-10-12 2021-10-12 Telephone Lisa Zaragoza [facility] 1.2.840.114 [id number] Univers 00:00:00 00:00:00 Cam [place] 350.1.13.10 i [place] [phone] Nh dical NAL [address] [place] [address] 2021-10-11 2021-10-11 Telephone [facility] 1.2.840.114 [id number] Univers 00:00:00 00:00:00 Cam [place] 350.1.13.10 i ty of [facility] 4.2.7.2.[place] [id number] Nh dical NAL 134 [facility] 2021-10-04 2021-10-04 Outpatient R LISA ZAARGOZA [facility] 40473 [id number] Univers 13:15:00 13:44:[address] [facility] 2021-10-04 2021-10-04 Routine Mila [facility] 1.2.682.134 [id number] Univers 13:15:00 13:44:53 Cam ANGLEKIERST[place] 350.1.13.10 it[place] [phone] Nh dical NAL 134 [facility] 2021-09-25 2021-09-25 Outpatient R LISA ZARAGOZA [facility] [id number] Univers 09:30:00 09:30:[address] [facility] 2021-09-25 2021-09-25 Hand Candle Molder 2, Adc Lab [facility] 1.2.840.114 [id number] Univers 09:30:00 09:30:00 Visit Lisa Zaragoza EMILY 350.1.13.10 [place] [phone] Nh dical [facility] 353 [facility] 2021-09-20 2021-09-20 Outpatient R [facility] [id number] Univers 09:00:00 09:00:[address] [facility] 2021-09-15 2021-09-15 Patient Doctor SUE 1.2.840.114 [id number] Univers 00:00:00 00:00:00 Secure Msg Unassigned, PINKY 350.1.13.10 ity of [place] [facility] 4.2.7.2.686 Mike as [phone] [address] 2021-09-05 2021-09-05 Routine Katie [facility] 1.2.226.066 [id number] Univers 13:00:00 13:15:00 Dhruv DIAZ 350.1.13.10 it[place] [phone] Nh dical [address] 2021-09-05 2021-09-05 Outpatient R KATIE [facility] 40352 [id number] Univers 13:00:00 13:00:00 DHRUV [facility] 2021-09-04 2021-09-04 Hand Candle Molder Ultrasound, Riya [facility] 1.2 .840.114 [id number] Univers 09:00:00 09:45:00 Visit Mila Lisache DIAZ 350.1.13.10 ity of [place] 4.2.7.2.686 [facility] [phone] Nh dical [address] 2021-09-04 2021-09-04 Outpatient R ISSA BALES [facility] [id number] Univers 09:00:00 09:00:00 ISSA BALES [facility] 2021-08-27 2021-08-27 Outpatient X LISA ZARAGOZA [facility] [place] [id number] Univers 08:43:00 11:40:00 ity [facility] 2021-08-27 2021-08-27 Emergency Lisa Zaragoza [facility] 1.2.840.114 [id number] Univers 08:43:00 11:40:00 Yash DIAZ 350.1.13.10 i ty of [place] 4.2.7.2.686 [facility] [phone] [facility] 083 [place] 2021-08-27 2021-08-27 Orders Doctor SUE 1.2.840.114 [id number] Univers 00:00:00 00:00:00 Only Unassigned, PINKY 350.1.13.10 ity of [place] [facility] 4.2.7.2.686 Mike as [phone] [facility] 009 [place] 2021-08-24 2021-08-24 Orders Doctor SUE 1.2.840.114 [id number] Univers 00:00:00 00:00:00 Only Unassigned, PINKY 350.1.13.10 ity of [place] [facility] 4.2.7.2.686 Mike as [phone] [address] 2021-08-17 2021-08-17 Patient Doctor [facility] 1.2.840.114 [id number] Univers 00:00:00 00:00:00 Secure Msg Unassigned, HEALTH 350.1.13.10 ity of [place] [phone] [place] [id number] [place] OFFICE BUILDING 2021-08-14 2021-08-14 Telephone Lisa Zaragoza [facility] 1.2.840.114 [id number] Univers 00:00:00 00:00:00 Cam [place] 350.1.13.10 i ty of [facility] 4.2.7.2.[place] [phone] Nh dical NAL [facility] 2021-08-14 2021-08-14 Patient Doctor [facility] 1.2.840.114 [id number] Univers 00:00:00 00:00:00 Secure Msg Unassigned, [place] 350.1.13.10 ity of [place] [id number] Nh dicwi NAL [address] [place] [address] 2021-08-06 2021-08-06 Outpatient R LISA ZARAGOZA [facility] [id number] Univers 16:00:00 16:43:[address] [facility] 2021-08-06 2021-08-06 Routine Mila Lisa [facility] 1.2.561.429 [id number] Univers 16:00:00 16:43:13 Cam [place] 350.1.13.10 ity of Visit [facility] 4.2.7.2.[place] [phone] Nh dical NAL [address] [place] [address] 2021-07-24 2021-07-24 Hand Candle Molder Ultrasound, Adc [facility] 1.2 .840.114 [id number] Univers 11:02:41 12:07:14 Visit Jenny Veloz 350.1 .13.10 ity of [facility] 4.2.7.2.[place] [phone] Nh dical NAL [address] [place] [address] 2021-07-24 2021-07-24 Outpatient P BENIGNO [facility] [id number] Univers 11:00:00 11:00:00 LUCIA it y of S, ALVARADO [facility] 2021-07-23 2021-07-23 Outpatient X LISA ZARAGOZA [facility] [place] 41253 [id number] Univers 09:20:00 10:55:[address] [facility] 2021-07-23 2021-07-23 Emergency Lisa Zaragoza [facility] 1.2.840.114 [id number] Univers 09:20:00 10:55:00 Cam [place] 350.1.13.10 i ty of [facility] 4.2.7.2.[place] [phone] [address] 2021-07-17 2021-07-17 Telephone Lisa Zaragoza [facility] 1.2.840.114 [id number] Univers 00:00:00 00:00:00 Cam [place] 350.1.13.10 i ty of [facility] 4.2.7.2.[place] [phone] Nh dical NAL [address] [place] [address] 2021-07-09 2021-07-09 Routine iLsa Zaragoza [facility] 1.2.743.380 [id number] Univers 08:05:09 08:47:50 Cam [place] 350.1.13.10 ity [place]2.[place] [phone] Nh dical NAL [address] [place] [address] 2021-07-09 2021-07-09 Outpatient R LISA ZARAGOZA [facility] [id number] Univers 08:00:00 08:47:[address] [facility] 2021-07-09 2021-07-09 Case Lisa Zaragoza [facility] 1.2.927.312 [id number] Univers 00:00:00 00:00:00 Management Cam [place] 350.1.13.10 it[place] of [place] [phone] Nh dical NAL [address] [place] [address] 2021-07-03 2021-07-03 Outpatient P MARCUS [facility] [place] [id number] Univers 06:11:00 14:15:00 LISA ity of [facility] 2021-07-03 2021-07-03 [facility] SUE Joy 1.2.840.114 [id number] Univers 06:11:00 14:15:00 Encounter Lisa Goddard P[place] 350.1.13.10 ity of HOSPITAL 4.2.7.2.686 Mike as [id number] [facility] [address] 2021-07-02 2021-07-02 Telephone Lisa Zaragoza [facility] 1.2.840.114 [id number] Univers 00:00:00 00:00:00 Yash DIAZ 350.1.13.10 i [place] [phone] Nh dical NAL 134 [facility] 2021-06-26 2021-06-26 Outpatient R KATIE [facility] [id number] Univers 08:00:00 08:00:00 DHRUV hinson [facility] 2021-06-25 2021-06-25 Outpatient R KATIE [facility] [id number] Univers 11:00:00 11:00:00 DHRUV hinson [facility] 2021-06-25 2021-06-25 Hand Candle Molder 2, Adc Lab [facility] 1.2.840.114 [id number] Univers 09:58:56 10:13:56 Visit Dhruv Wilson 350.1.13.10 it[place] of [place] [phone] Nh dical NAL 353 [facility] 2021-06-25 2021-06-25 Routine Katie [facility] 1.2.026.185 [id number] Univers 08:30:18 08:45:18 Dhruv DIAZ 350.1.13.10 ity [place]2.[place] [id number] Nh dical NAL 134 [facility] 2021-06-25 2021-06-25 Orders Doctor ROGERS 1.2.840.114 [id number] Univers 00:00:00 00:00:00 Only Unassigned, [place]INK[place] 350.1.13.10 ity of [place] [facility] 4.2.7.2.686 Mike as [phone] [facility] [address] 2021-05-28 2021-05-28 Routine Lisa Zaragoza [facility] 1.2.731.527 [id number] 6248 Univers 11:08:42 11:55:53 Yash Diaz 350.1.13.10 ity of [place] [phone] [facility] 134 [facility] 2021-05-28 2021-05-28 Outpatient R LISA ZARAGOZA [facility] [id number] Univers 11:15:00 11:15:[address] [facility] 2021-05-03 2021-05-03 Telephone Lisa Zaragoza [facility] 1.2.840.114 [id number] Univers 00:00:00 00:00:00 Cam Emily 350.1.13.10 i ty [place] [phone] [facility] 134 [facility] 2021-05-02 2021-05-02 Hand Candle Molder 2, Adc Lab [facility] 1.2.840.114 [id number] Univers 08:17:41 08:32:41 Visit Lisa Zaragoza Yash Diaz 350.1.13.10 [place] of [place]2.[place] [phone] [facility] 353 [facility] 2021-05-02 2021-05-02 Outpatient R [facility] [id number] Univers 08:00:00 08:00:[address] [facility] 2021-04-28 2021-04-28 Emergency Jasmyn Harris [facility] 1.2.840. 114 [id number] Univers 07:58:00 17:25:00 Betty Ferguson 350.1.13.10 [place]2.[place] [phone] [facility] 083 [place] 2021-04-27 2021-04-27 Telephone Lisa Zaragoza [facility] 1.2.840.114 [id number] Univers 00:00:00 00:00:00 Cam [place] 350.1.13.10 i ty [place] [phone] Nh dical nal 134 [facility] 2021-04-26 2021-04-26 Emergency [facility] 1.2.840.114 [id number] Univers 14:43:00 18:22:00 Shahzad B [place] 350.1.13.10 i ty [place].2.[place] [phone] [facility] 084 [place] 2021-04-26 2021-04-26 Initial Zaragoza [facility] 1.2.620.806 [id number] 0272 Univers 09:57:20 10:52:25 Yash [place] 350.1.13.10 ity of [place] [id number] [address] 2021-04-26 2021-04-26 Outpatient R LISA ZARAGOZA [facility] 69617 [id number] Univers 10:00:00 10:00:[address] [facility] 2021-04-26 2021-04-26 Telephone Mila [facility] 1.2.840.114 [id number] Univers 00:00:00 00:00:00 Cam [place] 350.1.13.10 i [place].2.[place] [phone] Nh dicwi nal 134 [facility] 2021-04-24 2021-04-24 Telephone Lisa Zaragoza [facility] 1.2.840.114 [id number] Univers 00:00:00 00:00:00 Cam [place] 350.1.13.10 [place].7.2.[place] [phone] Nh dical nal 134 [facility] 2021-02-02 2021-02-02 Hand Candle Molder Kyra, Riya Lab Main [facility] 1.2.8 40.114 [id number] Univers 15:54:47 16:09:47 Visit Lisa Zaragoza 350.1.13.10 [place] of [place].2.[place] [id number] [facility] 353 [facility] 2021-02-02 2021-02-02 Outpatient R MILA LISA [facility] [id number] Univers 16:00:00 16:00:[address] [facility] 2021-02-02 2021-02-02 Orders Doctor SUE 1.2.840.114 [id number] Univers 00:00:00 00:00:00 Only Unassigned, PINKY 350.1.13.10 ity of [place] [facility] 4.2.7.2.686 Mike as [phone] [address] 2021-02-01 2021-02-01 Outpatient R [facility] [id number] Univers 16:00:00 16:00:[address] [facility] 2021-01-19 2021-01-19 Case Lisa [facility]ago[facility] 1.2.584.404 [id number] Univers 00:00:00 00:00:00 Management Cam [place] 350.1.13.10 [place] [phone] Nh dic[address] 2021-01-19 2021-01-19 Telephone Lisa Zaragoza [facility] 1.2.840.114 [id number] Univers 00:00:00 00:00:00 Cam [place] 350.1.13.10 [place] [phone] Nh dic[address] 2021-01-19 2021-01-19 Case Lisa Zaragoza [facility] 1.2.782.205 [id number] 00:00:00 00:00:00 Management Cam [place] 350.1.13.10 [place] 4.2.7.2.686 Professio [phone] [address] 2021-01-19 2021-01-19 Telephone Lisa Zaragoza [facility] 1.2.840.114 [id number] 00:00:00 00:00:00 Cam [place] 350.1.13.10 [place] 4.2.7.2.686 Professio [phone] [address] 2021-01-17 2021-01-17 Clinical Septimus, 1.2.840.1 [id number] Methodi 15:47:27 15:52:27 Support Antelmo Ramirez [address]04.1.[address] 3.430.2.7 Hospit a .3.183079 l .8 2021-01-17 2021-01-17 Hand Candle Molder 2, [facility] 1.2.840.114 [id number] [facility] 13:15:45 13:30:45 Visit Lisa Zaragoza [place] 350.1.13.10 [place] [phone] Nh dical [address] 2021-01-17 2021-01-17 Hand Candle Molder 2, [facility] 1.2.840.114 [id number] 13:15:45 13:30:45 Visit [place] 350.1.13.10 [place] 4.2.7.2.686 Professio [id number] [address] 2021-01-17 2021-01-17 Outpatient R [facility] [id number] Univers 13:00:00 13:00:[address] [facility] 2021-01-17 2021-01-17 Case Lisa Zaragoza [facility] 1.2.486.097 [id number] [facility] 00:00:00 00:00:00 Management Cam [place] 350.1.13.10 [place] [phone] Nh dic[address] 2021-01-17 2021-01-17 Case Lisa Zaragoza [facility] 1.2.193.371 [id number] 00:00:00 00:00:00 Management Cam [place] 350.1.13.10 [place] 4.2.7.2.686 Professio [phone] [address] 2021-01-08 2021-01-08 Hand Candle Molder 2, [facility] 1.2.840.114 [id number] [facility] 08:34:07 08:49:07 Visit Lisa Zaragozaton 350.1.13.10 [place] [phone] Nh dical [address] 2021-01-082021-01-08 Hand Candle Molder 2, [facility] 1.2.840.114 [id number] 08:34:07 08:49:07 Visit [place] 350.1.13.10 [place] 4.2.7.2.686 Professio [phone] [address] 2021-01-08 2021-01-08 Outpatient R [facility] [id number] Univers 08:00:00 08:00:00 ity [facility] 2021-01-01 2021-01-01 Hand Candle Molder 2, Adc Lab [facility] 1.2.840.114 [id number] Univers 08:47:10 09:02:10 Visit Lisa Zaragoza [place] 350.1.13.10 [place] [phone] Nh dic[address] 2021-01-01 2021-01-01 Hand Candle Molder 2, Adc Lab [facility] 1.2.840.114 [id number] 08:47:10 09:02:10 Visit [place] 350.1.13.10 [place] 4.2.7.2.686 Professio [phone] [address] 2021-01-01 2021-01-01 Outpatient R [facility] [id number] Univers 08:30:00 08:30:00 ity [facility] 2021-01-01 2021-01-01 Case Lisa Zaragoza [facility] 1.2.893.485 [id number] Univers 00:00:00 00:00:00 Management Cam [place] 350.1.13.10 [place] [phone] Nh dical nal [address] [place] [address] 2021-01-01 2021-01-01 Case Lisa Zaragoza [facility] 1.2.717.061 [id number] Univers 00:00:00 00:00:00 Management Cam [place] 350.1.13.10 [place] [phone] Nh dical nal [address] [place] [address] 2021-01-01 2021-01-01 Case Lisa ZaragozaMB 1.2.453.404 [id number] 00:00:00 00:00:00 Management Cam [place] 350.1.13.10 [place] 4.2.7.2.686 Professio [phone] [address] 2021-01-01 2021-01-01 Case Lisa Zaragoza [facility] 1.2.558.147 [id number] 00:00:00 00:00:00 Management Cam [place] 350.1.13.10 [place] 4.2.7.2.686 Professio [phone] [address] 2020-12-27 2020-12-27 Clinical 1.2.840.1 [id number] Methodi 14:49:37 14:54:[address] 3.430.2.7 Hospit a .3.441022 l .8 2020-12-27 2020-12-27 Hand Candle Molder 2, Adc Lab [facility] 1.2.840.114 [id number] [facility] 10:33:06 10:48:06 Visit Lisa Zaragoza [place] 350.1.13.10 [place] [phone] [address] 2020-12-27 2020-12-27 Hand Candle Molder 2, Adc Lab [facility] 1.2.840.114 [id number] 10:33:06 10:48:06 Visit [place] 350.1.13.10 [place] 4.2.7.2.686 Professio [phone] [address] 2020-12-27 2020-12-27 Office Lisa Zaragoza [facility] 1.2.792.505 [id number] [facility] 09:56:00 10:24:34 Visit Cam [place] 350.1.13.10 i [place] [phone] Nh dic[address] 2020-12-27 2020-12-27 Office Lisa Zaragoza [facility] 1.2.109.755 [id number] 09:56:00 10:24:34 Visit Cam [place] 350.1.13.10 [place] 4.2.7.2.686 Professio [phone] [place] [address] Building 2020-12-27 2020-12-27 Outpatient R LISA ZARAGOZA [facility] [id number] Univers 10:00:00 10:00:[address] [facility] 2020-12-12 2020-12-12 Hospital Lisa Zaragoza [facility] 1.2.840.114 [id number] Univers 07:03:00 10:00:00 Encounter Yash Diaz 350.1.13.10 [place] [phone] [facility] 0[address] Branch 2020-12-12 2020-12-12 Surgery Lisa Zaragoza [facility] 1.2.363.083 [id number] Univers 08:00:00 09:16:00 Yash Diaz 350.1.13.10 [place] [phone] [facility] 020 Branch 2020-12-12 2020-12-12 Nurse SUE Arrieta 1.2.840.114 [id number] Univers 00:00:00 00:00:00 Triage Becki VANCE 350.1.13.10 it y of [facility] 4.2.7.2.686 Mike as [phone] [facility] 019 Branch 2020-12-11 2020-12-11 Hand Candle Molder 1, Adc Lab [facility] 1.2.840.114 [id number] Univers 14:26:15 14:41:15 Visit Dwayne Painter Emily 350.1.13.10 ity of Lisa [place]agoza 4.2.7.2.686 [facility] [phone] [facility] [address] 2020-12-11 2020-12-11 Laboratory Only, Adc Test [place] 1.2.840. 114 [id number] Univers 14:22:12 14:37:12 Only MadinaDwayne Emily 350.1.13.10 [place] [phone] [facility] 353 [address] 2020-12-11 2020-12-11 Outpatient R LISA ZARAGOZA [facility] [id number] Univers 13:00:00 13:00:[address] [facility] 2020-12-11 2020-12-11 Outpatient R [facility] [id number] Univers 09:15:00 09:15:[address] [facility] 2020-12-05 2020-12-05 Outpatient R LISA ZARAGOZA [facility] [id number] Univers 16:15:00 16:15:[address] [facility] 2020-12-05 2020-12-05 Office Lisa Zaragoza [facility] 1.2.356.551 [id number] Univers 08:27:16 09:14:57 Visit Cam [place] 350.1.13.10 [place] [phone] [address] 2020-12-05 2020-12-05 Outpatient R LISA ZARAGOZA [facility] [id number] Univers 08:30:00 08:30:[address] [facility] 2020-12-04 2020-12-04 [facility] 1.2.840.114 [id number] Univers 00:00:00 00:00:00 Cam [place] 350.1.13.10 [place] [phone] [address] 2020-11-30 2020-11-30 Routine Lisa Zaragoza [facility] 1.2.698.432 [id number] Univers 15:17:13 15:46:59 Cam [place] 350.1.13.10 it[place] [phone] [address] 2020-11-30 2020-11-30 Outpatient R LISA ZARAGOZA [facility] [id number] Univers 15:15:00 15:15:[address] [facility] 2020-11-29 2020-11-29 Hospital Lisa Zaragoza [facility] 1.2.840.114 [id number] Univers 10:00:00 23:59:00 Encounter Cam [place] 350.1.13.10 [place] [phone] [facility] 806 [place] 2020-11-29 2020-11-29 Outpatient R SANDI ZARAGOZAEN [facility] [id number] Univers 00:00:00 00:00:00 ity [facility] 2020-11-29 2020-11-29 Telephone [facility] 1.2.840.114 [id number] Univers 00:00:00 00:00:00 Cam [place] 350.1.13.10 [place] [phone] Nh dical nal [address] [place] [address] 2020-11-23 2020-11-23 Outpatient R [facility] [id number] Univers 09:00:00 09:00:[address] [facility] 2020-11-22 2020-11-22 Case Mila [facility] 1.2.510.601 [id number] Univers 00:00:00 00:00:00 Management Cam [place] 350.1.13.10 [place] [phone] Nh dical nal [address] [place] [address] 2020-11-22 2020-11-22 Telephone [facility] 1.2.840.114 [id number] Univers 00:00:00 00:00:00 Cam [place] 350.1.13.10 [place] [phone] Nh dical nal [address] [place] [address] 2020-11-20 2020-11-20 Outpatient R [facility] [id number] Univers 14:30:00 14:30:00 ity [facility] 2020-11-20 2020-11-20 Hand Candle Molder 2, Adc Lab [facility] 1.2.840.114 [id number] Univers 13:49:04 14:04:04 Visit Mila Lisache Berrios [place] 350.1.13.10 [place] [phone] Nh dical nal [address] [facility] 2020-11-18 2020-11-18 Outpatient R [facility] [id number] Univers 11:00:00 11:00:[address] [facility] 2020-11-16 2020-11-16 Outpatient R [facility] [id number] Univers 13:00:00 13:00:[address] 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 2, Adc Lab [facility] 1.2.840.114 [id number] Univers 11:40:45 11:55:45 Visit Lisa Zaragoza 350.1.13.10 [place] [phone] Nh dical nal 353 [facility] 2020-11-14 2020-11-14 Initial ZaragozaSandien [facility] 1.2.418.203 [id number] Univers 10:19:19 11:34:01 Yash Diaz 350.1.13.10 ity [place] [phone] Nh dical nal [address] [facility] 2020-11-14 2020-11-14 Outpatient R ZARAGOZASANDIEN [facility] [id number] Univers 10:30:00 10:30:[address] [facility] 2020-11-14 2020-11-14 Orders Doctor ROGERS 1.2.840.114 [id number] Univers 00:00:00 00:00:00 Only Unassigned, PINKY 350.1.13.10 ity of [facility] 4.2.7.2.686 Mike as [phone] [address] 2020-08-27 2020-08-27 Orders Doctor SUE 1.2.840.114 [id number] Univers 00:00:00 00:00:00 Only Unassigned, PINKY 350.1.13.10 ity of [place] [facility] 4.2.7.2.686 Mike as [phone] [facility] 009 [place] 2020-07-12 2020-07-12 Lab Reggie, 1.2.840.1 [id number] Methodi 14:21:08 14:26:08 Dandre 18117.1.1 622 [facility] 3.430.2.7 Hospit a .3.294672 l .8 2020-05-16 2020-05-16 Nurse SUE [place] 1.2.840.114 [id number] Univers 00:00:00 00:00:00 Triage Aneatrice PINKY 350.1.13.10 ity of [facility] 4.2.7.2.686 Mike as [phone] [facility] 019 [place] 2020-05-15 2020-05-15 Emergency [facility] 1.2.141.031 [id number] Univers 09:47:00 12:04:00 Jasmyn [place] 350.1.13.10 i [place] 4[place]7.2.686 [place] [facility] [phone] [facility] 084 [place] 2020-05-15 2020-05-15 Emergency X [facility] ERT [id number] Univers 09:47:00 09:47:00 JASMYN hinson [facility] Results Test Description Test Time Test Comments Results Result Comments Source COVID-19 qualitative PCR 2020-07-13 04:47:50 Test Item Value Reference Range Interpretation Comme nts Interpretation (test code = Negative results do not 3485829) preclude 2019-nCoV infection and should not be used as the sole basis for treatment or other patient management decisions. Negative results must be combined with clinical observations, patient history, and epidemiological information. COVID-19 qualitative RT-PCR Not-Detected Not-Detected result (test code = 70362-7) COVID-19 qualitative RT-PCR See link below for PDF Lab Case Number: (test code = 7070) Report [id number] [address] [place] [address]
[2023-06-21] MEDS ORDERED: KETOROLAC 30 MG/ML INJ ONE (14:31)
[2023-06-21] MEDS ORDERED: NA CHLORIDE 0.9% 1,000 ML ONE (14:31)
[2023-06-21 14:51] LABS: Specific Gravity 1.025 (1.005-1.030); Urine Bilirubin NEGATIVE (Negative); Urine Blood Negative (Negative); Urine Clarity Clear (Clear); Urine Color Light-Yellow (Yellow); Urine Glucose NEGATIVE (Negative); Urine Protein NEGATIVE (Negative); Urine Urobilinogen Normal (Normal); Urine pH 6.5 (5.0-7.0)
[2023-06-21 14:52] LABS: Absolute Lymphocytes (CBC) 2.2 K/uL (0.7-4.9); Hematocrit 36.6 % (36.0-45.0); Lymphocytes % 22.1 % (15.3-44.8); MCV 85.8 fL (80-100); MPV 8.7 fL (7.6-11.3); Platelets 278 thou/uL (152-406); RBC Red Blood Cell Count 4.27 M/uL (3.86-4.86)
[2023-06-21 15:06] LABS: Albumin 3.2 g/dL (3.4-5.0); Bilirubin Total 0.2 mg/dL (0.2-1.0); Potassium 3.6 mEq/L (3.5-5.1); Protein, Total 7.3 g/dL (6.4-8.2)
--- NOTE | 2023-06-21 15:52 | RAD REPORT ---
EXAM DESCRIPTION: CTAbdomen Pelvis W Contrast - 06/21/2023 3:39 pm CLINICAL HISTORY: FLANK PAIN COMPARISON: Abdomen Pelvis W Contrast dated 05/17/2018 TECHNIQUE: CT of the abdomen and pelvis was performed. All CT scans are performed using dose optimization technique as appropriate and may include automated exposure control or mA/KV adjustment according to patient size. FINDINGS: Lower chest: 3 mm right lower lobe pulmonary nodules unchanged since 2018 and benign. Liver: No acute abnormality or suspicious lesions. Biliary: No biliary ductal dilatation. Stomach: No significant focal abnormality. Duodenum: No significant focal abnormality. Pancreas: No significant abnormality. Spleen: No significant abnormality. Adrenal: No suspicious lesions. Kidney/ureter: No hydronephrosis. No renal calculi. Retroperitoneum: No retroperitoneal adenopathy. Vascular: No aneurysm. Bowel: No significant focal abnormality. Appendectomy. Peritoneum: No ascites or free air. Bladder: Grossly unremarkable. Reproductive: IUD. Corpus luteal cyst in the left ovary. Bones: No acute fracture. Other: n/a IMPRESSION: No acute intra-abdominal or pelvic finding. Appendectomy. No urinary tract calculi.
--- NOTE | 2023-06-21 16:09 | EDPHYS ---
Physician Documentation [facility] Name: Sosa Norris Age: 28 yrs Sex: Female : 1995 Arrival Date: 06/21/2023 Time: 13:45 Bed 20 Private MD: ED Physician Braxton Pimentel HPI: 06/21 14:51 This 28 yrs old Female presents to ER via Ambulatory with complaints of Back jh7 Pain. 14:51 The patient presents with pain that is acute, with no known mechanism of injury. The jh7 symptoms are located in the L flank radiating to her side. Onset: The symptoms/episode began/occurred 2 week(s) ago. Associated signs and symptoms: The patient has no apparent associated signs or symptoms. pt concerned for gallstones. Reports that her back is tender.. Historical: - Allergies: 14:51 No Known Allergies; db - PMHx: 14:51 mild asthma; db - PSHx: 14:51 Appendectomy; Tonsillectomy; db - Immunization history:: Client reports receiving the 2nd dose of the Covid vaccine. - Social history:: Smoking status: Patient reports the use of cigarette tobacco products, smokes one-half pack cigarettes per day. ROS: 14:51 Constitutional: Negative for fever, chills, and weight loss, Eyes: Negative for injury, jh7 pain, redness, and discharge, ENT: Negative for injury, pain, and discharge, Neck: Negative for injury, pain, and swelling, Cardiovascular: Negative for chest pain, palpitations, and edema, Respiratory: Negative for shortness of breath, cough, wheezing, and pleuritic chest pain, MS/Extremity: Negative for injury and deformity, Skin: Negative for injury, rash, and discoloration, Neuro: Negative for headache, weakness, numbness, tingling, and seizure, 14:51 Abdomen/GI: Positive for abdominal pain, Negative for nausea, vomiting, and diarrhea, 14:51 Back: Positive for flank pain, on the left, 14:51 All other systems are negative, Exam: 14:51 Constitutional: This is a well developed, well nourished patient who is awake, alert, jh7 and in no acute distress. Head/Face: Normocephalic, atraumatic. Neck: Trachea midline, no thyromegaly or masses palpated, and no cervical lymphadenopathy. Supple, full range of motion without nuchal rigidity, or vertebral point tenderness. No Meningismus. Cardiovascular: Regular rate and rhythm with a normal S1 and S2. No gallops, murmurs, or rubs. Normal PMI, no JVD. No pulse deficits. Respiratory: Lungs have equal breath sounds bilaterally, clear to auscultation and percussion. No rales, rhonchi or wheezes noted. No increased work of breathing, no retractions or nasal flaring. Skin: Warm, dry with normal turgor. Normal color with no rashes, no lesions, and no evidence of cellulitis. MS/ Extremity: Pulses equal, no cyanosis. Neurovascular intact. Full, normal range of motion. Neuro: Awake and alert, GCS 15, oriented to person, place, time, and situation. Normal gait. 14:51 Abdomen/GI: Inspection: abdomen appears normal, Bowel sounds: normal, Palpation: mild abdominal tenderness, in the left upper quadrant, 14:51 Neuro: Orientation: is normal, Mentation: is normal, Memory: is normal, Motor: is jh7 normal, Sensation: is normal, Vital Signs: 14:30 BP 115 / 67; Pulse 72; Resp 16; Temp 98.7(O); Pulse Ox 97% on R/A; Weight 95.25 kg; db Height 5 ft. 0 in. ; 14:40 BP 115 / 67; Pulse 59; Resp 16; Pulse Ox 100% on R/A; db 15:00 BP 96 / 54; Pulse 71; Resp 16; Pulse Ox 100% on R/A; db 16:32 BP 113 / 72; Pulse 54; Resp 18; Pulse Ox 100% on R/A; db 14:30 Body Mass Index 41.01 (95.25 kg, 152.4 cm) db MDM: 13:50 Patient medically screened. [facility] 16:10 Differential diagnosis: Cholelithiasis chronic back pain, Pyelonephritis [facility] Ureterolithiasis. Data reviewed: vital signs, nurses notes, lab test result(s), radiologic studies, CT scan. I considered the following discharge prescriptions or medication management in the emergency department Medications were administered in the Emergency Department. See MAR. Counseling: I had a detailed discussion with the patient and/or guardian regarding the historical points, exam findings, and any diagnostic results supporting the discharge/admit diagnosis, to return to the emergency department if symptoms worsen or persist or if there are any questions or concerns that arise at home. Response to treatment: the patient's symptoms have markedly improved after treatment. ED course: pt stated at discharge that she has a hx of chronic back issues and would follow up with her PCP. 06/21 13:56 Order name: CBC with Diff; Complete Time: 15:07 [facility] 06/21 13:56 Order name: CMP; Complete Time: 15:07 [facility] 06/21 13:56 Order name: Lipase; Complete Time: 15:07 [facility] 06/21 13:56 Order name: Test, Urine; Complete Time: 15:07 [facility] 06/21 13:56 Order name: Urinalysis w/ reflexes; Complete Time: 15:07 [facility] 06/21 13:56 Order name: CT Abd/Pelvis - IV Contrast Only; Complete Time: 16:06 [facility] 06/21 13:56 Order name: IV Saline Lock; Complete Time: 14:41 [facility] 06/21 13:56 Order name: Labs collected and sent; Complete Time: 14:41 [facility] Administered Medications: 14:40 Drug: NS 0.9% IV 1000 ml IV at 1 bolus Per protocol; 1000 mL bolus Route: IV; Rate: 1 db bolus; Site: right antecubital; 16:42 Follow up: Response: No adverse reaction; IV Status: Completed infusion; IV Intake: db 1000ml 14:40 Drug: TORadol - Ketorolac IVP 15 mg IVP once Route: IVP; Site: right antecubital; db 16:30 Follow up: Response: No adverse reaction db Disposition: 17:39 Co-signature as Attending Physician, Braxton Pimentel MD I reviewed the patient's care rn provided by the Advanced Practice Provider and agree with the diagnosis and treatment plan. Disposition Summary: 06/21/23 16:09 Discharge Ordered Notes: Location: Home [facility] Problem: new [facility] Symptoms: have improved [facility] Condition: Stable [facility] Diagnosis - Low back pain [facility] Followup: [facility] - With: Private Physician - When: 2 - 3 days - Reason: Recheck today's complaints Discharge Instructions: - Discharge Summary Sheet 7 - Chronic Back Pain 7 - Musculoskeletal Pain [facility] Forms: - Medication Reconciliation Form [facility] - Thank You Letter 7 - Patient Portal Instructions [facility] - Leadership Thank You Letter [facility] Prescriptions: - Naprosyn 500 mg Oral Tablet - take 1 tablet ORAL route 2 times per day take with food; 30 tablet; Refills: 0, [facility] Product Selection Permitted - Zanaflex 4 mg Oral Tablet - take 1 tablet ORAL route every 8 hours As needed; 20 tablet; Refills: 0, [facility] Product Selection Permitted Signatures: Dispatcher [employer] Braxton Gilmore MD MD rn Hadash, Jennifer, FNP [place] [address] iDanne Robertson RN RN db
--- NOTE | 2023-06-21 16:09 | ER ---
Nurse's Notes [facility] Name: Sosa Norris Age: 28 yrs Sex: Female : 1995 Arrival Date: 06/21/2023 Time: 13:45 Bed 20 Private MD: Diagnosis: Low back pain Presentation: 06/21 14:30 Chief complaint: Patient states: COMPLAINS OF BACK PAIN X 2 WEEKS AND LEFT FLANK PAIN db STARTED TODAY. Coronavirus screen: Vaccine status: Patient reports receiving the 2nd dose of the covid vaccine. Client denies travel out of the [place] in the last 14 days. At this time, the client does not indicate any symptoms associated with coronavirus-19. Ebola Screen: Patient negative for fever greater than or equal to 101.5 degrees Fahrenheit, and additional compatible Ebola Virus Disease symptoms Patient denies exposure to infectious person. Patient denies travel to an Ebola-affected area in the 21 days before illness onset. No symptoms or risks identified at this time. Initial Sepsis Screen: Does the patient meet any 2 criteria? No. Patient's initial sepsis screen is negative. Does the patient have a suspected source of infection? No. Patient's initial sepsis screen is negative. Risk Assessment: Do you want to hurt yourself or someone else? Patient reports no desire to harm self or others. Onset of symptoms was June 21, 2023. 14:30 Method Of Arrival: Ambulatory db 14:30 Acuity: SEGUNDO 3 db Triage Assessment: 14:51 General: Appears in no apparent distress. Behavior is calm, cooperative. Pain: db Complains of pain in back. Neuro: Level of Consciousness is awake, alert, obeys commands, Oriented to person, place, time, situation. Respiratory: Airway is patent Respiratory effort is even, unlabored, Respiratory pattern is regular, symmetrical. GI: No deficits noted. No signs and/or symptoms were reported involving the gastrointestinal system. Musculoskeletal: Reports pain in back. Historical: - Allergies: 14:51 No Known Allergies; db - PMHx: 14:51 mild asthma; db - PSHx: 14:51 Appendectomy; Tonsillectomy; db - Immunization history:: Client reports receiving the 2nd dose of the Covid vaccine. - Social history:: Smoking status: Patient reports the use of cigarette tobacco products, smokes one-half pack cigarettes per day. Screenin:52 [facility] ED Fall Risk Assessment (Adult) History of falling in the last 3 months, db including since admission No falls in past 3 months (0 pts) Confusion or Disorientation No (0 pts) Intoxicated or Sedated No (0 pts) Impaired Gait No (0 pts) Mobility Assist Device Used No (0 pt) Altered Elimination No (0 pt) Score/Fall Risk Level 0 - 2 = Low Risk Oriented to surroundings, Maintained a safe environment. Abuse screen: Denies threats or abuse. Denies injuries from another. Nutritional screening: No deficits noted. Tuberculosis screening: No symptoms or risk factors identified. Assessment: 14:46 Reassessment: Patient appears in no apparent distress at this time. Patient and/or db family updated on plan of care and expected duration. Pain level reassessed. Patient is alert, oriented x 3, equal unlabored respirations, skin warm/dry/pink. General: Appears in no apparent distress. comfortable, Behavior is calm, cooperative. Pain: Complains of pain in LEFT FLANK. Neuro: Level of Consciousness is awake, alert, obeys commands, Oriented to person, place, time, situation. Vital Signs: 14:30 BP 115 / 67; Pulse 72; Resp 16; Temp 98.7(O); Pulse Ox 97% on R/A; Weight 95.25 kg; db Height 5 ft. 0 in. ; 14:40 BP 115 / 67; Pulse 59; Resp 16; Pulse Ox 100% on R/A; db 15:00 BP 96 / 54; Pulse 71; Resp 16; Pulse Ox 100% on R/A; db 16:32 BP 113 / 72; Pulse 54; Resp 18; Pulse Ox 100% on R/A; db 14:30 Body Mass Index 41.01 (95.25 kg, 152.4 cm) ED Course: 13:50 Patient arrived in ED. ts1 13:50 Rahel Cox FNP [facility]. jh7 13:50 Braxton Pimentel MD is Attending Physician. [facility] 14:06 Dianne Robertson, BALWINDER is Primary Nurse. db 14:41 Initial lab(s) drawn, by pa, sent to lab. Inserted saline lock: 22 gauge in right em1 forearm, using aseptic technique. Blood collected. 14:42 CBC with Diff Sent. em1 14:42 CMP Sent. em1 14:42 Lipase Sent. em1 14:42 Test, Urine Sent. em1 14:42 Urinalysis w/ reflexes Sent. em1 14:51 Triage completed. db 14:51 Arm band placed on Patient placed in an exam room. db 14:52 Patient has correct armband on for positive identification. Bed in low position. Call db light in reach. Side rails up X 1. Pulse ox on. NIBP on. Warm blanket given. 15:40 CT Abd/Pelvis - IV Contrast Only In Process Unspecified. EDMS 16:32 No provider procedures requiring assistance completed. IV discontinued, intact, db bleeding controlled, No redness/swelling at site. 16:32 Provided Education on: DISCHARGE. db Administered Medications: 14:40 Drug: NS 0.9% IV 1000 ml IV at 1 bolus Per protocol; 1000 mL bolus Route: IV; Rate: 1 db bolus; Site: right antecubital; 16:42 Follow up: Response: No adverse reaction; IV Status: Completed infusion; IV Intake: db 1000ml 14:40 Drug: TORadol - Ketorolac IVP 15 mg IVP once Route: IVP; Site: right antecubital; db 16:30 Follow up: Response: No adverse reaction db Medication: 14:52 VIS not applicable for this client. db Intake: 16:42 IV: 1000ml; Total: 1000ml. db Outcome: 16:09 Discharge ordered by . 7 16:32 Discharged to home ambulatory, db 16:32 Condition: stable 16:32 Discharge instructions given to patient, Instructed on discharge instructions, follow up and referral plans. Prescriptions given X 2, 16:46 Patient left the ED. db Signatures: Dispatcher [employer] EDMS Paresh Del Valle em1 Rahel Cox, COLORING ROOM WORKER COLORING ROOM WORKER 7 Dianne Robertson, RN RN db Geovanna Dubon, PAS PAS ts1
[2023-06-21 17:08] VITALS: TEMP 98.7
[2023-06-21 17:09] VITALS: O2SAT 100
[2023-06-21 17:13] VITALS: BP 113/72
== END 2023-06-21 16:46 | disposition home or self-care (01) ==
LOC: ER 13:45
DX: M54.50 Low back pain, unspecified (principal)
CPT/HCPCS: 36415; 74177; 80053; 81003; 81025; 83690; 85025; 96361; 96374; 99284; J7030; Q9967

== ENCOUNTER → 2023-11-02 | Emergency (ER) | payer OTHER, SELFPAY ==
[~2023-11-02] MED LIST: DIAZEPAM 10 MG/2 ML INJ SYRINGE ONE; KETOROLAC 30 MG/ML INJ ONE
[2023-11-02 14:33] LABS: Specific Gravity > 1.030 (1.005-1.030)
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
[2023-11-02 16:36] VITALS: BP 135/67; TEMP 98.3; O2SAT 100
== END ==
LOC: ER 13:33
DX: M54.2 Cervicalgia (principal); R51.9 Headache, unspecified; S70.12XA Contusion of left thigh, initial encounter; V49.50XA Passenger injured in collision with unspecified motor vehicles in traffic accident, initial encounter
CPT/HCPCS: 81025; 70450; 71250; 72125; J3360; 96374; 96375; 99284